=== PATIENT | female | born 1970 | race Hispanic/Latino ===

== ENCOUNTER 2023-04-02 22:14 | Emergency (ER) | payer OTHER ==
--- OUTSIDE RECORDS SUMMARY | 2023-04-02 22:22 | XMS REPORT | Continuity of Care Document ---
:1970 Author Organization [facility] t Address [address] [place] [address] Care Team Providers Name Role Phone BONIFACIO FLOR Attending Clinician Unavailable Donna Barreto Attending Clinician Unavailable GILDA RODRIGUEZ Attending Clinician Unavailable Alverto CANALES, Zelda Genao Attending Clinician [phone] Azar CANALES, Cait Fernandez Attending Clinician Cheko CANALES, Renny Mcwilliams Attending Clinician [phone] Emi Falcon MD Attending Clinician Gilda Rodriguez MD Attending Clinician ZELDA WATT Attending Clinician Unavailable Doctor Unassigned, [place] Attending Clinician Unavailable Alcira Elizalde RN Attending Clinician Unavailable ELIZA RINCON Attending Clinician Unavailable Yousuf Leyva DO Attending Clinician Bonifacio Flor MD Attending Clinician Curtis Anderson DO Attending Clinician Only, Adc Test Attending Clinician Unavailable Pob, [facility] Lab Main Attending Clinician Unavailable Eliza Forbes Attending Clinician Donavan Kumar MD Attending Clinician DONAVAN KUMAR Attending Clinician Unavailable BONIFACIO FLOR Admitting Clinician Unavailable ZELDA WATT Admitting Clinician Unavailable Bonifacio Flor MD Admitting Clinician Payers Payer Name Policy Type Policy Number Effective Date Expiration Date Everardo dalton [facility] [id number] 2012 00:00:00 PLUS [facility] ST[facility] [id number] 2022 00:00:00 PLAN Problems Condition Condition Condition Status Onset Resolution Last Treating Co mments Source Name Details Category Date Date Treatment Clinician Date Perforated Perforated Disease Recurre 2021-[address] [facility] gastric gastric nce 1-11 [facility] ulcer ulcer 00:00: Medical 00 [place] UGIB UGIB Disease Active 2021-[address] [facility] (upper (upper 1-11 [facility] gastrointe gastrointe 00:00: Sd dical stinal stinal 00 Center bleed) bleed) Acute Acute Disease Active 2021-[address] [facility] blood loss blood loss 1-11 [facility] anemia anemia 00:00: Medical 00 [place] Total knee Total knee Disease Active U nivers replacemen replacemen 3-15 it y of [place] status, [place] Primary Primary Disease Active Overview: Univ ers osteoarthr osteoarthr 309 Formatt[place] ity of itis of itis of 00:00: g of this [place] left knee left knee 00 note Medi peggy might be Branch different from the original. 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 Chronic Chronic Disease Active [facility] pain pain [facility] Allergies, Adverse Reactions, Alerts Allergy Allergy Status Severity Reaction(s) Onset Inactive Treating Comm ents Source Name Type Date Date Clinician No Known DA Active U [facility] Drug 01-25 Allergie 00:00: s 00 Tramadol Propensi Active Hives Univer s ty to 3-15 ity of adverse 00:00: [place] reaction 00 Medical s Branch TRAMADOL DRUG Active Low Hives Univers INGREDI 3-15 ity of 00:00: [place] 00 Medical Branch TRAMADOL Allergy Active High Hives [facility] 3-09 [facility] 00:[facility] Medical [facility] Center Tramadol Drug Active Hives [facility] Allergy 3-09 [facility] 00:[facility]: Medical 00 Center Fentanyl Propensi Active Rash Hard to Unive rs ty to 2-22 wake-up ity of adverse 00:00: [place] reaction 00 Medical s to Branch drug Morphine Propensi Active Other - See Pt.state s Univers ty to comments 08-10 that she ity of adverse 00:00: is not [place] reaction 00 allergic Medica l s to to Branch drug morphine but that it is hard to wake her up when she takes it. FENTANYL DRUG Active High Rash Univers INGREDI 08-10 ity of 00:00: [place] 00 Medical Branch MORPHINE DRUG Active High Other-Cmnt Univ ers INGREDI 08-10 ity of 00:00: [place] 00 Medical Branch Propoxyp Propensi Active Rash Univer s hene ty to 09-19 ity of adverse 00:00: [place] reaction 00 Medical s Branch PROPOXYP DRUG Active Rash Univers HENE INGREDI 09-19 ity of 00:00: [place] 00 Medical Branch PROPOXYP Allergy Active Low Rash [facility] 00:[facility]: Medical 00 Center Propoxyp Propensi Active Rash Univer s hene ty to 6 ity of N-Acetam adverse 00:00: [place] inophen reaction 00 Medical s Branch PROPOXYP DRUG Active Rash Univers HENE 6-27 ity of N-ACETAM 00:00: [place] INOPHEN 00 Medical Branch PROPOXYP Allergy Active Low Rash [facility] H[facility] 6-27 [facility] N-ACETAM 00:00: Medical INOPHEN 00 Center NO KNOWN Allergy Active [facility] S Family History Family Member Diagnosis Comments Start Date Stop Date Source Natural brother Alcohol abuse [facility] Natural daughter Depression [facility] Natural daughter Drug abuse [facility] Natural father Diabetes [facility] Natural father Hypertension [facility] Natural mother Cancer [facility] Natural mother Depression [facility] Natural mother Hypertension [facility] Natural sister Cancer [facility] Natural sister Depression [facility] Natural son Alcohol abuse [facility] Natural son Depression [facility] Natural son Drug abuse [facility] Social History Social Habit Start Date Stop Date Quantity Comments Source Exposure to Not sure University of SARS-CoV-2 (event) [place] [facility] History SDOH [facility] Transport Non-Med Medical Center History SDOH 2022-05-05 2022-05-[address] [facility] Transport Med 00:00:00 00:00:[address] History [facility] 2022-05-05 2022-05-[address] [facility] Housing Unable to 00:00:00 00:00:00 Medical Center Pay History [facility] 2022-05-05 2022-05-[address] [facility] Housing Places 00:00:00 00:00:00 Medical Ce nter Lived History [facility] 2022-05-05 2022-05-[address] [facility] Housing Homeless 00:00:00 00:00:00 Medical Center Last Year Cigarettes smoked 2022-04-29 2022-04-[address] [facility] current (pack per 00:00:00 00:00:00 Medical Center day) - Reported Cigarette 2022-04-29 2022-04-[address] [facility] pack-years 00:00:00 00:00:00 [facility] Center Tobacco use and 2022-04-29 2022-04-[address] [facility] exposure 00:00:00 00:00:00 tobacco non-user [facility] Center Alcohol intake 2022-04-29 2022-04-29 Ex-drinker [facility] 00:[facility]:00 00:00:00 (finding) [facility] Tobacco Comment 2022-04-29 2022-04-29 [address] [facility] 00:[facility]00 00:[facility]:00 [facility] Alcohol Comment 2022-04-29 2022-04-[address] [facility] 00:00:00 00:00:00 bypasss surgery. Medical Center History [facility] 2020-08-31 2020-08-31 9 University o f Education 00:00:00 00:00:00 [facility] History of tobacco 1988-04-29 2019-04-[address] use 00:00[facility]00 00:00:00 Medical Center Sex Assigned At [address] [facility] 00:00:00 00:00:00 [facility] Center Smoking Status Start Date Stop Date Source Ex-smoker 2022-04-29 00:00:00 2022-04-29 00:00:[address] [facility] Current every day 2020-09-16 00:00:00 [facility] smoker Medical Branch Medications Ordered Filled Start Stop Current Ordering Indication Dosage Frequency Signature Comments Components Source Medication Medication Date Date Medication? Clinician (SIG) Name Name bisacodyL 2021-06 Yes 5mg Take [address] [facility] (DULCOLAX) 1-18 by mouth 3 Sonu es 5 mg EC 16:03: (three) Medical tablet 01 times Center daily as needed for Constipati on. diphenhydrA 2021-06 Yes 1{tbl} QD Take [address] MINE-acetam -18 tablet by Sonu es inophen 16:03: mouth Medical (TYLENOL 01 nightly. Center PM) 25-500 mg Tab sucralfate 2021-06- No 1g Q.25D Take [address] [facility] (CARAFATE) 18 11-18 tablet (1 Sonu es 1 gram 00:00: 23:59 g total) Medica l tablet 00 :00 by mouth 4 Center (four) times daily. pantoprazol 2021-06 No 40mg Q.5D Take [address] [facility] e 18 12-18 tablet (40 [facility] (PROTONIX) 00:00: 23:59 mg total) M edical 40 MG 00 :00 by mouth 2 Center tablet (two) times daily for 30 days. oxyCODONE-a 2021-06- No 1{tbl} Take [address] cetaminophe 07-06-28 tablet by Shara walters 00:00: 23:59 mouth Medical (PERCOCET) 00 :00 every 4 Center 10-325 mg (four) per tablet hours as needed for Pain for up to 10 days. Max Daily Amount: 6 tablets HYDROcodone 2021-06 No 1{tbl} Take [address] -acetaminop 06-20-18 tablet by Shara robertson hen (NORCO 00:00: 00:00 mouth Medic al 10-325) 00 :00 every 6 Center 10-325 mg (six) per tablet hours as needed. varenicline Yes Take by Uni vers tartrate 3-16 mouth. ity of (CHANTIX 21:27: [place] ORAL) 10 Medical Branch varenicline Yes Take by Uni vers tartrate 3-16 mouth. ity of (CHANTIX 21:27: [place] ORAL) 10 Medical Branch varenicline Yes Take by Uni vers tartrate 3-16 mouth. ity of (CHANTIX 21:27: [place] ORAL) 10 Medical Branch varenicline Yes Take by Uni vers tartrate 3-16 mouth. ity of (CHANTIX 21:27: [place] ORAL) 10 Medical Branch varenicline Yes Take by Uni vers tartrate 3-16 mouth. ity of (CHANTIX 21:27: [place] ORAL) 10 Medical Branch varenicline Yes Take by Uni vers tartrate 3-16 mouth. ity of (CHANTIX 21:27: [place] ORAL) 10 Medical Branch varenicline Yes Take by Uni vers tartrate 3-16 mouth. ity of (CHANTIX 21:27: [place] ORAL) 10 Medical Branch varenicline Yes Take by Uni vers tartrate 3-16 mouth. ity of (CHANTIX 21:27: [place] ORAL) 10 Medical Branch varenicline Yes Take by Uni vers tartrate 3-16 mouth. ity of (CHANTIX 21:27: [place] ORAL) 10 Medical Branch varenicline Yes Take by Uni vers tartrate 3-16 mouth. ity of (CHANTIX 21:27: [place] ORAL) 10 Medical Branch varenicline Yes Take by Uni vers tartrate 3-16 mouth. ity of (CHANTIX 21:27: [place] ORAL) 10 Medical Branch varenicline Yes Take by Uni vers tartrate 3-16 mouth. ity of (CHANTIX 21:27: [place] ORAL) 10 Medical Branch varenicline Yes Take by Uni vers tartrate 3-16 mouth. ity of (CHANTIX 21:27: [place] ORAL) 10 Medical Branch varenicline Yes Take by Uni vers tartrate 3-16 mouth. ity of (CHANTIX 21:27: [place] ORAL) 10 Medical Branch varenicline Yes Take by Uni vers tartrate 3-16 mouth. ity of (CHANTIX 21:27: [place] ORAL) 10 Medical Branch enoxaparin 2020- No 30mg 30 mg, Univ ers (LOVENOX) 3-16 04-13 Subcutaneo ity of injection 10:00: 00:59 [place], Q12H, [place] 30 mg 00 :00 56 doses, Medical First dose Branch on Mon09/01/20 at 0500, Last dose on Mon09/28/20 at 0800, Routine docusate Yes 100mg 100 mg, Unive rs (COLACE) 3-16 Oral, ity of capsule 100 01:00: Q12H, [place] mg 00 First dose Medical on Mon Branch 08/31/20 at 2000, Until Discontinu ed, Routine rivaroxaban 2020- No 1481 10mg Take 1 Uni vers (XARELTO) -01 09- tablet by ity of tablet 00:00: 04:59 mouth [place] 00 :00 daily for Medical 10 days. Branch Indication s: deep vein thrombosis prevention in knee replacemen t rivaroxaban 2020- No 1481 10mg Take 1 Uni vers (XARELTO) -01 09- tablet by ity of tablet 00:00: 04:59 mouth [place] 00 :00 daily for Medical 10 days. Branch Indication s: deep vein thrombosis prevention in knee replacemen t rivaroxaban 2020- No 1481 10mg Take 1 Uni vers (XARELTO) -01 09- tablet by ity of tablet 00:00: 04:59 mouth [place] 00 :00 daily for Medical 10 days. Branch Indication s: deep vein thrombosis prevention in knee replacemen t rivaroxaban 1- No 1481 10mg Take 1 Uni vers (XARELTO) -16 - tablet by ity of tablet 00:00: 04:59 mouth [place] 00 :00 daily for Medical 10 days. Branch Indication s: deep vein thrombosis prevention in knee replacemen t rivaroxaban 2020- No 1481 10mg Take 1 Uni vers (XARELTO) -16 -27 tablet by ity of tablet 00:00: 04:59 mouth [place] 00 :00 daily for Medical 10 days. Branch Indication s: deep vein thrombosis prevention in knee replacemen t rivaroxaban 2020- No 1481 10mg Take 1 Uni vers (XARELTO) -16 -27 tablet by ity of tablet 00:00: 04:59 mouth [place] 00 :00 daily for Medical 10 days. Branch Indication s: deep vein thrombosis prevention in knee replacemen t HYDROcodone 2020- No 4647 1{tbl} Take 1 U nivers -acetaminop 3-16 03-24 tablet by it y of hen 10-325 00:00: 04:59 mouth [place] mg tablet 00 :00 every 6 Medical (six) Branch hours as needed for Pain (scale 7-10) for up to 7 days. Indication s: acute pain HYDROcodone 2020- No 4647 1{tbl} Take 1 U nivers -acetaminop 3-16 03-24 tablet by it y of hen 10-325 00:00: 04:59 mouth [place] mg tablet 00 :00 every 6 Medical (six) Branch hours as needed for Pain (scale 7-10) for up to 7 days. Indication s: acute pain HYDROcodone 2020- No 4647 1{tbl} Take 1 U nivers -acetaminop 3-16 03-24 tablet by it y of hen 10-325 00:00: 04:59 mouth [place] mg tablet 00 :00 every 6 Medical (six) Branch hours as needed for Pain (scale 7-10) for up to 7 days. Indication s: acute pain HYDROcodone 2020- No 4647 1{tbl} Take 1 U nivers -acetaminop 3-16 03-24 tablet by it y of hen 10-325 00:00: 04:59 mouth [place] mg tablet 00 :00 every 6 Medical (six) Branch hours as needed for Pain (scale 7-10) for up to 7 days. Indication s: acute pain pantoprazol Yes 40mg 40 mg, Univ ers e 3-15 Oral, ity of (PROTONIX) 22:30: DAILY, [place] EC tablet 00 First dose Medi peggy 40 mg on Mon Branch 08/31/20 at 1730, Until Discontinu ed, Routine HYDROcodone Yes 1{tbl} 1 tablet, Univers -acetaminop 3-15 Oral, ity of hen (NORCO) 22:18: Q6HPRN, [place] 10-325 mg 40 Starting Medica l tablet 1 Mon Branch tablet 08/31/20 at 1718, Until Discontinu ed, Routine, Pain (scale 7-10) nicotine Yes 1{patch 1 Patch, Un héctor (NICODERM) 3-15 } Topical, ity o f 14 mg/24 hr 22:15: Administer [place] patch 1 00 over 24 Medical Patch Hours, Branch Q24H, First dose on Mon08/31/20 at 1715, Until Discontinu ed, Routine HYDROcodone 2020- No 1{tbl} 1 tablet, Univers -acetaminop 08-31 03-15 Oral, ity of hen (NORCO 20:35: 22:19 Q6HPRN, [place] 5) 5-325 mg 08 :07 Starting Medi peggy tablet 1 Mon [place] tablet 08/31/20 at 1535, Until Mon08/31/20 at 1719, Routine, Pain (scale 4-6), breakthrou gh pain morpHINE 30 Yes Univer s mg/30 mL 3-15 ity of (fixed 14:15: [place] dose) SPEECH 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 PATH THERAPIST 25 Medical injection Branch DULoxetine Yes 30mg 30 mg, Unive rs (CYMBALTA) 3-15 Oral, ity of capsule 30 14:00: DAILY, [place] mg 00 First dose Medical on [facility] 08/31/20 at 0900, Until Discontinu ed, Routine naloxone Yes .2mg 0.2 mg, Univer s (NARCAN) 3-15 Slow IV ity of injection 13:15: Push, [place] 0.2 mg 07 SEE-INSTRU Medical CTIONS, Branch Starting [facility] 08/31/20 at 0815, Until Discontinu ed, Routine ondansetron Yes 4mg 4 mg, Slow Univers (ZOFRAN 3-15 IV Push, ity of (PF)) 13:14: Q6HPRN, [place] injection 4 47 Starting Medi peggy mg [facility] 08/31/20 at 0814, Until Discontinu ed, Routine, Nausea and Vomiting (N/V) oxyCODONE-a 2020- No 2{tbl} 2 tablet, Univers cetaminophe 315 03-15 Oral, ity of n 12:30: 12:25 ONCE, 1 [place] (PERCOCET) 00 :00 dose, [facility] Medi peggy 5-325 mg 08/31/20 at Branc h per tablet 0730, 2 tablet Routine, DSU Pre-op gabapentin 2020- No 300mg 300 mg, Un héctor (NEURONTIN) 08-31 Oral, ity of capsule 300 12:30: 12:25 ONCE, 1 [place] mg 00 :00 dose, Mon Medical 08/31/20 at Branch 0730, Routine, DSU Pre-op celecoxib 2020- No 400mg 400 mg, Uni vers (CELEBREX) 08-31 Oral, ity of capsule 400 12:30: 12:24 ONCE, 1 [place] mg 00 :00 dose, Mon Medical 08/31/20 at Branch 0730, Routine, DSU Pre-op lactated 2020- No 1000mL at [facility] ringers IV 08-31 mL/hr, ity of infusion 12:30: 12:40 1,000 mL, [place] 1,000 mL 00 :00 IV Medical Infusion, [place] ONCE, 1 dose, [facility] 08/31/20 at [facility], Routine, DSU Pre-op varenicline Yes Take by Uni vers tartrate 2-03 mouth. ity of (CHANTIX 19:26: [place] ORAL) 54 [facility] Branch varenicline Yes Take by Uni vers tartrate 2-03 mouth. ity of (CHANTIX 19:26: [place] ORAL) 54 [facility] Branch varenicline Yes Take by Uni vers tartrate 2-03 mouth. ity of (CHANTIX 19:26: [place] ORAL) 54 [facility] Branch varenicline Yes Take by Uni vers tartrate 2-03 mouth. ity of (CHANTIX 19:26: [place] ORAL) 54 [facility] Branch varenicline Yes Take by Uni vers tartrate 2-03 mouth. ity of (CHANTIX 19:26: [place] ORAL) 54 [facility] Branch varenicline Yes Take by Uni vers tartrate 2-03 mouth. ity of (CHANTIX 19:26: [place] ORAL) 54 [facility] Branch varenicline Yes Take by Uni vers tartrate 2-03 mouth. ity of (CHANTIX 19:26: [place] ORAL) 54 [facility] Branch varenicline Yes Take by Uni vers tartrate 2-03 mouth. ity of (CHANTIX 19:26: [place] ORAL) 54 Medical Branch varenicline Yes Take by Uni vers tartrate 2-03 mouth. ity of (CHANTIX 19:26: [place] ORAL) 54 Medical Branch varenicline Yes Take by Uni vers tartrate 2-03 mouth. ity of (CHANTIX 19:26: [place] ORAL) 54 Medical Branch varenicline Yes Take by Uni vers tartrate 2-03 mouth. ity of (CHANTIX 19:26: [place] ORAL) 54 Medical Branch varenicline Yes Take by Uni vers tartrate 2-03 mouth. ity of (CHANTIX 19:26: [place] ORAL) 54 Medical Branch varenicline Yes Take by Uni vers tartrate 2-03 mouth. ity of (CHANTIX 19:26: [place] ORAL) 54 Medical Branch varenicline Yes Take by Uni vers tartrate 2-03 mouth. ity of (CHANTIX 19:26: [place] ORAL) 54 Medical Branch varenicline Yes Take by Uni vers tartrate 2-03 mouth. ity of (CHANTIX 19:26: [place] ORAL) 54 Medical Branch varenicline Yes Take by Uni vers tartrate 2-03 mouth. ity of (CHANTIX 19:26: [place] ORAL) 54 Medical Branch varenicline Yes Take by Uni vers tartrate 2-03 mouth. ity of (CHANTIX 19:26: [place] ORAL) 54 Medical Branch varenicline Yes Take by Uni vers tartrate 2-03 mouth. ity of (CHANTIX 19:26: [place] ORAL) 54 Medical Branch varenicline Yes Take by Uni vers tartrate 2-03 mouth. ity of (CHANTIX 19:26: [place] ORAL) 54 Medical Branch varenicline Yes Take by Uni vers tartrate 2-03 mouth. ity of (CHANTIX 19:26: [place] ORAL) 54 Medical Branch DULoxetine 0 Yes Univers 30 mg 4-07 ity of capsule 00:00: [place] 00 Medical Branch DULoxetine 0 Yes Univers 30 mg 4-07 ity of capsule 00:00: [place] 00 Medical Branch DULoxetine 2020-0 Yes Univers 30 mg 4-07 ity of capsule 00:00: [place] [address] Medical Branch DULoxetine 2020-0 Yes Univers 30 mg 4-07 ity of capsule 00:00: [place] [address] Medical Branch DULoxetine 2020-0 Yes Univers 30 mg 4-07 ity of capsule 00:00: [place] [address] Medical Branch DULoxetine 2020-0 Yes Univers 30 mg 4-07 ity of capsule 00:00: [place] [address] Medical Branch DULoxetine 2020-0 Yes Univers 30 mg 4-07 ity of capsule 00:00: [place] [address] Medical Branch DULoxetine 2020-0 Yes Univers 30 mg 4-07 ity of capsule 00:00: [place] [address] Medical Branch DULoxetine 2020-0 Yes Univers 30 mg 4-07 ity of capsule 00:00: [place] [address] Medical Branch DULoxetine 2020-0 Yes Univers 30 mg 4-07 ity of capsule 00:00: [place] [address] Medical Branch DULoxetine 2020-0 Yes Univers 30 mg 4-07 ity of capsule 00:00: [place] [address] Medical Branch DULoxetine 2020-0 Yes Univers 30 mg 4-07 ity of capsule 00:00: [place] [address] Medical Branch DULoxetine 2020-0 Yes Univers 30 mg 4-07 ity of capsule 00:00: [place] [address] Medical Branch DULoxetine 2020-0 Yes Univers 30 mg 4-07 ity of capsule 00:00: [place] [address] Medical Branch DULoxetine 2020-0 Yes Univers 30 mg 4-07 ity of capsule 00:00: [place] [address] Medical Branch DULoxetine 2020-0 Yes Univers 30 mg 4-07 ity of capsule 00:00: [place] [address] Medical Branch DULoxetine 2020-0 Yes Univers 30 mg 4-07 ity of capsule 00:00: [place] [address] Medical Branch DULoxetine 2020-0 Yes Univers 30 mg 4-07 ity of capsule 00:00: [place] [address] Medical Branch DULoxetine 2020-0 Yes Univers 30 mg 4-07 ity of capsule 00:00: [place] [address] Medical Branch DULoxetine 2020-0 Yes Univers 30 mg 4-07 ity of capsule 00:00: [place] [address] Medical Branch DULoxetine 2020-0 Yes Univers 30 mg 4-07 ity of capsule 00:00: [place] [address] Medical Branch DULoxetine 2020-0 Yes Univers 30 mg 4-07 ity of capsule 00:00: [place] [address] Medical Branch DULoxetine 2020-0 Yes Univers 30 mg 4-07 ity of capsule 00:00: [place] [address] Medical Branch DULoxetine 2020-0 Yes Univers 30 mg 4-07 ity of capsule 00:00: [place] [address] Medical Branch DULoxetine 2020-0 Yes Univers 30 mg 4-07 ity of capsule 00:00: [place] [address] Medical Branch DULoxetine 2020-0 Yes Univers 30 mg 4-07 ity of capsule 00:00: [place] [address] Medical Branch DULoxetine 2020-0 Yes Univers 30 mg 4-07 ity of capsule 00:00: [place] [address] Medical Branch DULoxetine 2020-0 Yes Univers 30 mg 4-07 ity of capsule 00:00: [place] [address] Medical Branch DULoxetine 2020-0 Yes Univers 30 mg 4-07 ity of capsule 00:00: [place] [address] Medical Branch DULoxetine 2020-0 Yes Univers 30 mg 4-07 ity of capsule 00:00: [place] [address] Medical Branch DULoxetine 2020-0 Yes Univers 30 mg 4-07 ity of capsule 00:00: [place] [address] Medical Branch DULoxetine 2020-0 Yes Univers 30 mg 4-07 ity of capsule 00:00: [place] [address] Medical Branch DULoxetine 2020-0 Yes Univers 30 mg 4-07 ity of capsule 00:00: [place] [address] Medical Branch famotidine 2020-0 Yes 20mg 20 mg. Unive rs 40 mg/5 mL 3-11 ity of (8 mg/mL) 00:00: [facility] Medical Branch famotidine 2020-0 Yes 20mg 20 mg. Unive rs 40 mg/5 mL 3-11 ity of (8 mg/mL) 00:00: [facility] Medical Branch famotidine 2020-0 Yes 20mg 20 mg. Unive rs 40 mg/5 mL 3-11 ity of (8 mg/mL) 00:00: [facility] Medical Branch famotidine 2020-0 Yes 20mg 20 mg. Unive rs 40 mg/5 mL 3-11 ity of (8 mg/mL) 00:00: [facility] Medical Branch famotidine 2020-0 Yes 20mg 20 mg. Unive rs 40 mg/5 mL 3-11 ity of (8 mg/mL) 00:00: [facility] Medical Branch famotidine 2020-0 Yes 20mg 20 mg. Unive rs 40 mg/5 mL 3-11 ity of (8 mg/mL) 00:00: [facility] Medical Branch famotidine 2020-0 Yes 20mg 20 mg. Unive rs 40 mg/5 mL 3-11 ity of (8 mg/mL) 00:00: [place] suspension 00 Medical Branch famotidine 2020-0 Yes 20mg 20 mg. Unive rs 40 mg/5 mL 3-11 ity of (8 mg/mL) 00:00: [place] suspension 00 Medical Branch famotidine 2020-0 Yes 20mg 20 mg. Unive rs 40 mg/5 mL 3-11 ity of (8 mg/mL) 00:00: [place] suspension Medical Branch famotidine 2020-0 Yes 20mg 20 mg. Unive rs 40 mg/5 mL 3-11 ity of (8 mg/mL) 00:00: [place] suspension Medical Branch famotidine 2020-0 Yes 20mg 20 mg. Unive rs 40 mg/5 mL 3-11 ity of (8 mg/mL) 00:00: [place] suspension Medical Branch famotidine 2020-0 Yes 20mg 20 mg. Unive rs 40 mg/5 mL 3-11 ity of (8 mg/mL) 00:00: [place] suspension Medical Branch famotidine 2020-0 Yes 20mg 20 mg. Unive rs 40 mg/5 mL 3-11 ity of (8 mg/mL) 00:00: [place] suspension [facility] famotidine 2020-0 Yes 20mg 20 mg. Unive rs 40 mg/5 mL 3-11 ity of (8 mg/mL) 00:00: [place] [facility] famotidine 2020-0 Yes 20mg 20 mg. Unive rs 40 mg/5 mL 3-11 ity of (8 mg/mL) 00:00: [place] [facility] famotidine 2020-0 Yes 20mg 20 mg. Unive rs 40 mg/5 mL 3-11 ity of (8 mg/mL) 00:00: [place] [facility] famotidine 2020-0 Yes 20mg 20 mg. Unive rs 40 mg/5 mL 3-11 ity of (8 mg/mL) 00:00: [place] suspension [facility] famotidine 2020-0 Yes 20mg 20 mg. Unive rs 40 mg/5 mL 3-11 ity of (8 mg/mL) 00:00: [place] [facility] famotidine 2020-0 Yes 20mg 20 mg. Unive rs 40 mg/5 mL 3-11 ity of (8 mg/mL) 00:00: [place] [facility] famotidine 2020-0 Yes 20mg 20 mg. Unive rs 40 mg/5 mL 3-11 ity of (8 mg/mL) 00:00: [place] [facility] famotidine 2020-0 Yes 20mg 20 mg. Unive rs 40 mg/5 mL 3-11 ity of (8 mg/mL) 00:00: [place] [facility] famotidine 2020-0 Yes 20mg 20 mg. Unive rs 40 mg/5 mL 3-11 ity of (8 mg/mL) 00:00: [place] [facility] famotidine 2020-0 Yes 20mg 20 mg. Unive rs 40 mg/5 mL 3-11 ity of (8 mg/mL) 00:00: [place] suspension [facility] famotidine 2020-0 Yes 20mg 20 mg. Unive rs 40 mg/5 mL 3-11 ity of (8 mg/mL) 00:00: [place] [facility] famotidine 2020-0 Yes 20mg 20 mg. Unive rs 40 mg/5 mL 3-11 ity of (8 mg/mL) 00:00: [place] suspension [facility] famotidine 2020-0 Yes 20mg 20 mg. Unive rs 40 mg/5 mL 3-11 ity of (8 mg/mL) 00:00: [place] [facility] famotidine 2020-0 Yes 20mg 20 mg. Unive rs 40 mg/5 mL 3-11 ity of (8 mg/mL) 00:00: [place] [facility] famotidine 2020-0 Yes 20mg 20 mg. Unive rs 40 mg/5 mL 3-11 ity of (8 mg/mL) 00:00: [place] [facility] famotidine 2020-0 Yes 20mg 20 mg. Unive rs 40 mg/5 mL 3-11 ity of (8 mg/mL) 00:00: [place] [facility] famotidine 2020-0 Yes 20mg 20 mg. Unive rs 40 mg/5 mL 3-11 ity of (8 mg/mL) 00:00: [place] [facility] famotidine 2020-0 Yes 20mg 20 mg. Unive rs 40 mg/5 mL 3-11 ity of (8 mg/mL) 00:00: [place] suspension 00 [facility] famotidine 2019-0 Yes 20mg 20 mg. Unive rs 40 mg/5 mL 3-11 ity of (8 mg/mL) 00:00: [place] suspension 00 [facility] famotidine 2019-0 Yes 20mg 20 mg. Unive rs 40 mg/5 mL 3-11 ity of (8 mg/mL) 00:00: [place] suspension 00 [facility] diclofenac Yes [id number] 75mg Take 1 Univers 75 mg EC 8-02 9102 tablet by ity of tablet 00:00: mouth 2 00 (two) Medical times Branch daily with meals. diclofenac Yes [id number] 75mg Take 1 [facility] 75 mg EC 8-02 9102 tablet by ity of tablet 00:00: mouth 2 00 (two) Medical times Branch daily with meals. diclofenac Yes [id number] 75mg Take 1 [facility] 75 mg EC 8-02 9102 tablet by ity of tablet 00:00: mouth 2 00 (two) Medical times Branch daily with meals. diclofenac Yes [id number] 75mg Take 1 [facility] 75 mg EC 8-02 9102 tablet by ity of tablet 00:00: mouth 2 (two) Medical times Branch daily with meals. diclofenac 2020- No [id number] 75mg Take 1 [facility] 75 mg EC 8-02 02-12 9102 tablet by ity o f tablet 00:00: 00:00 mouth 2 [place] 00 :00 (two) Medical times Branch daily with meals. diclofenac 2020- No [id number] 75mg Take 1 Univers 75 mg EC 8-02 02-12 9102 tablet by ity o f tablet 00:00: 00:00 mouth 2 [place] 00 :00 (two) Medical times Branch daily with meals. diclofenac 2020- No [id number] 75mg Take 1 Univers 75 mg EC 8-02 02-12 9102 tablet by ity o f tablet 00:00: 00:00 mouth 2 [place] 00 :00 (two) Medical times Branch daily with meals. varenicline Yes Take by Uni vers tartrate 5-29 mouth. ity of (CHANTIX 19:13: [place] ORAL) 25 Medical Branch varenicline Yes Take by Uni vers tartrate - mouth. ity of (CHANTIX 19:13: [place] ORAL) 25 Medical Branch diclofenac Yes [id number] 75mg Take 1 [facility] 75 mg EC 5-29 9102 tablet by ity of tablet 00:00: mouth 2 [place] 00 (two) Medical times Branch daily with meals. diclofenac Yes [id number] 75mg Take 1 [facility] 75 mg EC 5-29 9102 tablet by ity of tablet 00:00: mouth 2 [place] 00 (two) Medical times Branch daily with meals. diclofenac Yes [id number] 75mg Take 1 [facility] 75 mg EC 5-29 9102 tablet by ity of tablet 00:00: mouth 2 [place] 00 (two) Medical times Branch daily with meals. diclofenac Yes [id number] 75mg Take 1 [facility] 75 mg EC 5-29 9102 tablet by ity of tablet 00:00: mouth 2 [place] 00 (two) Medical times Branch daily with meals. diclofenac 2020- No [id number] 75mg Take 1 Univers 75 mg EC 5-29 - 9102 tablet by ity o f tablet 00:00: 00:00 mouth 2 [place] 00 :00 (two) Medical times Branch daily with meals. diclofenac 2020- No [id number] 75mg Take 1 Univers 75 mg EC 5-29 - 9102 tablet by ity o f tablet 00:00: 00:00 mouth 2 [place] 00 :00 (two) Medical times Branch daily with meals. diclofenac 2020- No [id number] 75mg Take 1 Univers 75 mg EC 5-29 - 9102 tablet by ity o f tablet 00:00: 00:00 mouth 2 [place] 00 :00 (two) Medical times Branch daily with meals. diclofenac 2019- No [id number] 75mg Take 1 Univers 75 mg EC 5-29 - 9102 tablet by ity o f tablet 00:00: 00:00 mouth 2 [place] 00 :00 (two) Medical times Branch daily with meals. HYDROcodone 2012-06 Yes 1{tbl} Take 1 Tab Univers -acetaminop 1-18 by mouth ity of hen (NORCO) 00:00: every 6 [place] 10-325 mg 00 (six) Medical tablet hours as Branch needed for Pain (scale 4-6). HYDROcodone 2012-06 Yes 1{tbl} Take 1 Tab Univers -acetaminop 1-18 by mouth ity of hen (NORCO) 00:00: every 6 [place] 10-325 mg 00 (six) Medical tablet hours as Branch needed for Pain (scale 4-6). HYDROcodone 2012-06 Yes 1{tbl} Take 1 Tab Univers -acetaminop 1-18 by mouth ity of hen (NORCO) 00:00: every 6 [place] 10-325 mg 00 (six) Medical tablet hours as Branch needed for Pain (scale 4-6). HYDROcodone 2012-06 Yes 1{tbl} Take 1 Tab Univers -acetaminop 1-18 by mouth ity of hen (NORCO) 00:00: every 6 [place] 10-325 mg 00 (six) Medical tablet hours as Branch needed for Pain (scale 4-6). HYDROcodone 2012-06- No 1{tbl} Take 1 Tab Univers -acetaminop 1-18 02-12 by mouth ity of hen (NORCO) 00:00: 00:00 every 6 [place] 10-325 mg 00 :00 (six) Medical tablet hours as Branch needed for Pain (scale 4-6). HYDROcodone 2012-06- No 1{tbl} Take 1 Tab Univers -acetaminop 1-18 02-12 by mouth ity of hen (NORCO) 00:00: 00:00 every 6 [place] 10-325 mg 00 :00 (six) Medical tablet hours as Branch needed for Pain (scale 4-6). HYDROcodone 2012-06- No 1{tbl} Take 1 Tab Univers -acetaminop 1-18 02-12 by mouth ity of hen (NORCO) 00:00: 00:00 every 6 [place] 10-325 mg 00 :00 (six) Medical tablet hours as Branch needed for Pain (scale 4-6). docusate Yes 100mg Take 1 Cap Un héctor (COLACE) 8-27 by mouth ity of 100 mg 00:00: daily. [place] capsule 00 Medical Branch HYDROcodone Yes 1{tbl} Take 1 Tab Univers -acetaminop 8-27 by mouth ity of hen (NORCO) 00:00: every 4 [place] 10-325 mg 00 (four) Medical tablet hours as Branch needed for Pain (scale 4-6), Pain (scale 7-10) or Pain unrelieved by non-narcot ic analgesics (prn pain). methocarbam 2012-0 Yes 500mg Take 1 Tab Univers ol 8-27 by mouth 4 ity of (ROBAXIN) 00:00: (four) [place] 500 mg 00 times Medical tablet daily as Branch needed (back pain/spasm s). traMADOL 2012-0 Yes 50mg Take 1 Tab Uni vers (ULTRAM) 50 8-27 by mouth ity of mg tablet 00:00: every 6 [place] 00 (six) Medical hours as Branch needed for Pain. docusate 2012-0 Yes 100mg Take 1 Cap Un héctor (COLACE) 8-27 by mouth ity of 100 mg 00:00: daily. [place] capsule 00 Medical Branch HYDROcodone 0 Yes 1{tbl} Take 1 Tab Univers -acetaminop 8-27 by mouth ity of hen (NORCO) 00:00: every 4 [place] 10-325 mg 00 (four) Medical tablet hours as Branch needed for Pain (scale 4-6), Pain (scale 7-10) or Pain unrelieved by non-narcot ic analgesics (prn pain). methocarbam 2012-0 Yes 500mg Take 1 Tab Univers ol 8-27 by mouth 4 ity of (ROBAXIN) 00:00: (four) [place] 500 mg 00 times Medical tablet daily as Branch needed (back pain/spasm s). traMADOL 2012-0 Yes 50mg Take 1 Tab Uni vers (ULTRAM) 50 8-27 by mouth ity of mg tablet 00:00: every 6 [place] 00 (six) Medical hours as Branch needed for Pain. docusate 2013-0 Yes 100mg Take 1 Cap Un héctor (COLACE) 8-27 by mouth ity of 100 mg 00:00: daily. [place] capsule 00 Medical Branch HYDROcodone 2012-0 Yes 1{tbl} Take 1 Tab Univers -acetaminop 8-27 by mouth ity of hen (NORCO) 00:00: every 4 [place] 10-325 mg 00 (four) Medical tablet hours as Branch needed for Pain (scale 4-6), Pain (scale 7-10) or Pain unrelieved by non-narcot ic analgesics (prn pain). methocarbam 2013-0 Yes 500mg Take 1 Tab Univers ol 8-27 by mouth 4 ity of (ROBAXIN) 00:00: (four) [place] 500 mg 00 times Medical tablet daily as Branch needed (back pain/spasm s). traMADOL 2013-0 Yes 50mg Take 1 Tab Uni vers (ULTRAM) 50 8-27 by mouth ity of mg tablet 00:00: every 6 [place] 00 (six) Medical hours as Branch needed for Pain. docusate 2013-0 Yes 100mg Take 1 Cap Un héctor (COLACE) 8-27 by mouth ity of 100 mg 00:00: daily. [place] capsule 00 Medical Branch HYDROcodone 0 Yes 1{tbl} Take 1 Tab Univers -acetaminop 8-27 by mouth ity of hen (NORCO) 00:00: every 4 [place] 10-325 mg 00 (four) Medical tablet hours as Branch needed for Pain (scale 4-6), Pain (scale 7-10) or Pain unrelieved by non-narcot ic analgesics (prn pain). methocarbam 2012-0 Yes 500mg Take 1 Tab Univers ol 8-27 by mouth 4 ity of (ROBAXIN) 00:00: (four) [place] 500 mg 00 times Medical tablet daily as Branch needed (back pain/spasm s). traMADOL 2012-0 Yes 50mg Take 1 Tab Uni vers (ULTRAM) 50 8-27 by mouth ity of mg tablet 00:00: every 6 [place] 00 (six) Medical hours as Branch needed for Pain. HYDROcodone 2012-0 Yes 1{tbl} Take 1 Tab Univers -acetaminop 8-27 by mouth ity of hen (NORCO) 00:00: every 4 [place] 10-325 mg 00 (four) Medical tablet hours as Branch needed for Pain (scale 4-6), Pain (scale 7-10) or Pain unrelieved by non-narcot ic analgesics (prn pain). HYDROcodone 2013-0 Yes 1{tbl} Take 1 Tab Univers -acetaminop 8-27 by mouth ity of hen (NORCO) 00:00: every 4 [place] 10-325 mg 00 (four) Medical tablet hours as Branch needed for Pain (scale 4-6), Pain (scale 7-10) or Pain unrelieved by non-narcot ic analgesics (prn pain). HYDROcodone Yes 1{tbl} Take 1 Tab Univers -acetaminop 8-27 by mouth ity of hen (NORCO) 00:00: every 4 [place] 10-325 mg 00 (four) Medical tablet hours as Branch needed for Pain (scale 4-6), Pain (scale 7-10) or Pain unrelieved by non-narcot ic analgesics (prn pain). HYDROcodone Yes 1{tbl} Take 1 Tab Univers -acetaminop 8-27 by mouth ity of hen (NORCO) 00:00: every 4 [place] 10-325 mg 00 (four) Medical tablet hours as Branch needed for Pain (scale 4-6), Pain (scale 7-10) or Pain unrelieved by non-narcot ic analgesics (prn pain). HYDROcodone Yes 1{tbl} Take 1 Tab Univers -acetaminop 8-27 by mouth ity of hen (NORCO) 00:00: every 4 [place] 10-325 mg 00 (four) Medical tablet hours as Branch needed for Pain (scale 4-6), Pain (scale 7-10) or Pain unrelieved by non-narcot ic analgesics (prn pain). HYDROcodone Yes 1{tbl} Take 1 Tab Univers -acetaminop 8-27 by mouth ity of hen (NORCO) 00:00: every 4 [place] 10-325 mg 00 (four) Medical tablet hours as Branch needed for Pain (scale 4-6), Pain (scale 7-10) or Pain unrelieved by non-narcot ic analgesics (prn pain). HYDROcodone Yes 1{tbl} Take 1 Tab Univers -acetaminop 8-27 by mouth ity of hen (NORCO) 00:00: every 4 [place] 10-325 mg 00 (four) Medical tablet hours as Branch needed for Pain (scale 4-6), Pain (scale 7-10) or Pain unrelieved by non-narcot ic analgesics (prn pain). HYDROcodone Yes 1{tbl} Take 1 Tab Univers -acetaminop 8-27 by mouth ity of hen (NORCO) 00:00: every 4 [place] 10-325 mg 00 (four) Medical tablet hours as Branch needed for Pain (scale 4-6), Pain (scale 7-10) or Pain unrelieved by non-narcot ic analgesics (prn pain). HYDROcodone Yes 1{tbl} Take 1 Tab Univers -acetaminop 8-27 by mouth ity of hen (NORCO) 00:00: every 4 [place] 10-325 mg 00 (four) Medical tablet hours as Branch needed for Pain (scale 4-6), Pain (scale 7-10) or Pain unrelieved by non-narcot ic analgesics (prn pain). HYDROcodone Yes 1{tbl} Take 1 Tab Univers -acetaminop 8-27 by mouth ity of hen (NORCO) 00:00: every 4 [place] 10-325 mg 00 (four) Medical tablet hours as Branch needed for Pain (scale 4-6), Pain (scale 7-10) or Pain unrelieved by non-narcot ic analgesics (prn pain). HYDROcodone Yes 1{tbl} Take 1 Tab [facility] -acetaminop 8-27 by mouth ity of hen (NORCO) 00:00: every 4 [place] 10-325 mg 00 (four) Medical tablet hours as Branch needed for Pain (scale 4-6), Pain (scale 7-10) or Pain unrelieved by non-narcot ic analgesics (prn pain). HYDROcodone Yes 1{tbl} Take 1 Tab [facility] -acetaminop 8-27 by mouth ity of hen (NORCO) 00:00: every 4 [place] 10-325 mg 00 (four) Medical tablet hours as Branch needed for Pain (scale 4-6), Pain (scale 7-10) or Pain unrelieved by non-narcot ic analgesics (prn pain). HYDROcodone Yes 1{tbl} Take 1 Tab [facility] -acetaminop 8-27 by mouth ity of hen (NORCO) 00:00: every 4 [place] 10-325 mg 00 (four) Medical tablet hours as Branch needed for Pain (scale 4-6), Pain (scale 7-10) or Pain unrelieved by non-narcot ic analgesics (prn pain). HYDROcodone Yes 1{tbl} Take 1 Tab Univers -acetaminop 8-27 by mouth ity of hen (NORCO) 00:00: every 4 [place] 10-325 mg 00 (four) Medical tablet hours as Branch needed for Pain (scale 4-6), Pain (scale 7-10) or Pain unrelieved by non-narcot ic analgesics (prn pain). HYDROcodone Yes 1{tbl} Take 1 Tab [facility] -acetaminop 8-27 by mouth ity of hen (NORCO) 00:00: every 4 [place] 10-325 mg 00 (four) Medical tablet hours as Branch needed for Pain (scale 4-6), Pain (scale 7-10) or Pain unrelieved by non-narcot ic analgesics (prn pain). HYDROcodone Yes 1{tbl} Take 1 Tab Univers -acetaminop 8-27 by mouth ity of hen (NORCO) 00:00: every 4 [place] 10-325 mg 00 (four) Medical tablet hours as Branch needed for Pain (scale 4-6), Pain (scale 7-10) or Pain unrelieved by non-narcot ic analgesics (prn pain). HYDROcodone Yes 1{tbl} Take 1 Tab Univers -acetaminop 8-27 by mouth ity of hen (NORCO) 00:00: every 4 [place] 10-325 mg 00 (four) Medical tablet hours as Branch needed for Pain (scale 4-6), Pain (scale 7-10) or Pain unrelieved by non-narcot ic analgesics (prn pain). HYDROcodone Yes 1{tbl} Take 1 Tab Univers -acetaminop 8-27 by mouth ity of hen (NORCO) 00:00: every 4 [place] 10-325 mg 00 (four) Medical tablet hours as Branch needed for Pain (scale 4-6), Pain (scale 7-10) or Pain unrelieved by non-narcot ic analgesics (prn pain). HYDROcodone 2020- No 1{tbl} Take 1 Tab Univers -acetaminop 8-27 03-16 by mouth ity of hen (NORCO) 00:00: 00:00 every 4 [place] 10-325 mg 00 :00 (four) Medical tablet hours as Branch needed for Pain (scale 4-6), Pain (scale 7-10) or Pain unrelieved by non-narcot ic analgesics (prn pain). docusate 2020- No 100mg Take 1 Cap U nivers (COLACE) 02-1212 by mouth ity of 100 mg 00:00: 00:00 daily. [place] capsule 00 :00 Medical Branch methocarbam 2020- No 500mg Take 1 Tab Univers ol 02-12 by mouth 4 ity of (ROBAXIN) 00:00: 00:00 (four) [place] 500 mg 00 :00 times Medical tablet daily as Branch needed (back pain/spasm s). traMADOL 2020- No 50mg Take 1 Tab Un héctor (ULTRAM) 50 02-12 by mouth ity of mg tablet 00:00: 00:00 every 6 [place] 00 :00 (six) Medical hours as Branch needed for Pain. docusate 2020- No 100mg Take 1 Cap U nivers (COLACE) 02-12 by mouth ity of 100 mg 00:00: 00:00 daily. [place] capsule 00 :00 Medical Branch methocarbam 2020- No 500mg Take 1 Tab Univers ol 02-12 by mouth 4 ity of (ROBAXIN) 00:00: 00:00 (four) [place] 500 mg 00 :00 times Medical tablet daily as Branch needed (back pain/spasm s). traMADOL 2020- No 50mg Take 1 Tab Un héctor (ULTRAM) 50 02-1212 by mouth ity of mg tablet 00:00: 00:00 every 6 [place] 00 :00 (six) Medical hours as Branch needed for Pain. docusate 2020- No 100mg Take 1 Cap U nivers (COLACE) 02-12 by mouth ity of 100 mg 00:00: 00:00 daily. [place] capsule 00 :00 Medical Branch methocarbam 2020- No 500mg Take 1 Tab Univers ol 02-1212 by mouth 4 ity of (ROBAXIN) 00:00: 00:00 (four) [place] 500 mg 00 :00 times Medical tablet daily as Branch needed (back pain/spasm s). traMADOL 2020- No 50mg Take 1 Tab Un héctor (ULTRAM) 50 8-27 02-12 by mouth ity of mg tablet 00:00: 00:00 every 6 [place] 00 :00 (six) Medical hours as Branch needed for Pain. sulfamethox Yes 1{tbl} Take 1 Tab Univers azole-trime 3-08 by mouth 2 it y of thoprim 00:00: (two) [place] (BACTRIM 00 times Medical DS) 800-160 daily. Branch mg tablet sulfamethox Yes 1{tbl} Take 1 Tab Univers azole-trime 3-08 by mouth 2 it y of thoprim 00:00: (two) [place] (BACTRIM 00 times Medical DS) 800-160 daily. Branch mg tablet sulfamethox Yes 1{tbl} Take 1 Tab Univers azole-trime 3-08 by mouth 2 it y of thoprim 00:00: (two) [place] (BACTRIM 00 times Medical DS) 800-160 daily. Branch mg tablet sulfamethox Yes 1{tbl} Take 1 Tab Univers azole-trime 3-08 by mouth 2 it y of thoprim 00:00: (two) [place] (BACTRIM 00 times Medical DS) 800-160 daily. Branch mg tablet sulfamethox 2020- No 1{tbl} Take 1 Tab Univers azole-trime 3-08 02-12 by mouth 2 i ty of thoprim 00:00: 00:00 (two) [place] (BACTRIM 00 :00 times Medical DS) 800-160 daily. Branch mg tablet sulfamethox 2020- No 1{tbl} Take 1 Tab Univers azole-trime 3-08 02-12 by mouth 2 i ty of thoprim 00:00: 00:00 (two) [place] (BACTRIM 00 :00 times Medical DS) 800-160 daily. Branch mg tablet sulfamethox 2020- No 1{tbl} Take 1 Tab Univers azole-trime 3-08 02-12 by mouth 2 i ty of thoprim 00:00: 00:00 (two) [place] (BACTRIM 00 :00 times Medical DS) 800-160 daily. Branch mg tablet Vital Signs Vital Name Observation Time Observation Value Comments Source WEIGHT 2022-05-06 06:12:00 57.063 kg WEIGHT 2022-05-05 06:00:00 60.102 kg WEIGHT 2022-05-04 06:00:00 51 kg HEIGHT 2022-04-30 06:00:00 160 cm HEIGHT 2022-04-30 01:00:00 160 cm WEIGHT 2022-04-29 07:00:00 51.6 kg HEIGHT 2022-04-29 07:00:00 160 cm WEIGHT 2022-05-06 06:12:00 57.063 kg WEIGHT 2022-05-05 06:00:00 60.102 kg WEIGHT 2022-05-04 06:00:00 51 kg HEIGHT 2022-04-30 06:00:00 160 cm HEIGHT 2022-04-30 01:00:00 160 cm WEIGHT 2022-04-29 07:00:00 51.6 kg HEIGHT 2022-04-29 07:00:00 160 cm WEIGHT 2022-05-06 06:12:00 57.063 kg WEIGHT 2022-05-05 06:00:00 60.102 kg WEIGHT 2022-05-04 06:00:00 51 kg HEIGHT 2022-04-30 06:00:00 160 cm HEIGHT 2022-04-30 01:00:00 160 cm WEIGHT 2022-04-29 07:00:00 51.6 kg HEIGHT 2022-04-29 07:00:00 160 cm Systolic blood 2020-10-01 13:03:00 98 mm[Hg] Univer sity of pressure [facility] Diastolic blood 2020-10-01 13:03:00 79 mm[Hg] Unive rsity of [facility] Heart rate 2020-10-01 13:03:00 64 /min [facility] Body temperature 2020-10-01 13:03:00 36.83 Mar Univ ersity [facility] Respiratory rate 2020-10-01 13:03:00 18 /min Univ ersity [facility] Body weight 2020-10-01 13:03:00 73.029 kg [facility] BMI 2020-10-01 13:03:00 28.52 kg/m2 [facility] Oxygen saturation in 2020-10-01 13:03:00 97 /min [facility] Arterial blood by [facility] Pulse oximetry Branch Systolic blood 2020-09-16 18:59:00 100 mm[Hg] Univer sity of pressure [place] [facility] Diastolic blood 2020-09-16 18:59:00 59 mm[Hg] Unive rsity of pressure [place] [facility] Heart rate 2020-09-16 18:59:00 69 /min Universi ty of [place] [facility] Body height 2020-09-16 18:59:00 160 cm Universi ty of [place] [facility] Body weight 2020-09-16 18:59:00 73.029 kg Universi ty of [place] [facility] BMI 2020-09-16 18:59:00 28.52 kg/m2 Universi ty [facility] [place] [facility] Systolic blood 2020-09-01 16:11:00 118 mm[Hg] Univer sity of pressure [place] [facility] Diastolic blood 2020-09-01 16:11:00 72 mm[Hg] Unive rsity of [facility] Heart rate 2020-09-01 16:11:00 51 /min Universi ty of [place] [facility] Body temperature 2020-09-01 16:11:00 36.39 Mar Univ ersity of [facility] Respiratory rate 2020-09-01 16:11:00 18 /min [facility] Oxygen saturation in 2020-09-01 16:11:00 97 /min University of Arterial blood by [facility] Pulse oximetry Branch Body height 2020-08-31 17:50:00 160 cm [facility] [place] [facility] Body weight 2020-08-31 17:50:00 73.029 kg [facility]i ty [facility] [place] [facility] BMI 2020-08-31 17:50:00 28.52 kg/m2 [facility] [place] [facility] Systolic blood 2020-08-24 20:38:00 105 mm[Hg] Univer sity of pressure [place] [facility] Diastolic blood 2020-08-24 20:38:00 69 mm[Hg] Unive rsity of pressure [place] [facility] Heart rate 2020-08-24 20:38:00 60 /min [facility]i ty [facility] [place] [facility] Body height 2020-08-24 20:38:00 160 cm [facility]i [facility] [place] [facility] Body weight 2020-08-24 20:38:00 74.208 kg [facility]i ty [facility] [place] [facility] BMI 2020-08-24 20:38:00 28.98 kg/m2 [facility] [place] [facility] Systolic blood 2020-07-31 20:10:00 124 mm[Hg] Univer sity of pressure [facility] Branch Diastolic blood 2020-07-31 20:10:00 78 mm[Hg] Unive rsity of pressure [facility] Heart rate 2020-07-31 20:10:00 63 /min Universi ty of [facility] Respiratory rate 2020-07-31 20:10:00 20 /min Univ ersity of [facility] Body height 2020-07-31 20:10:00 160 cm [facility] [place] [facility] Body weight 2020-07-31 20:10:00 75.751 kg [facility] [place] [facility] BMI 2020-07-31 20:10:00 29.58 kg/m2 Universi ty of [facility] Oxygen saturation in 2020-07-31 20:10:00 98 /min [facility] Arterial blood by [facility] Pulse oximetry Branch Systolic blood 2020-07-22 19:23:00 113 mm[Hg] Univer sity of pressure [place] [facility] Diastolic blood 2020-07-22 19:23:00 69 mm[Hg] Unive rsity of pressure [facility] Body height 2020-07-22 19:23:00 160 cm [facility]i [facility] [place] [facility] Body weight 2020-07-22 19:23:00 77.384 kg [facility] [place] [facility] BMI 2020-07-22 19:23:00 30.22 kg/m2 [facility] [place] [facility] Systolic blood 2022-05-06 08:29:00 101 mm[Hg] [facility] Diastolic blood 2022-05-06 08:29:00 57 mm[Hg] [facility] Heart rate 2022-05-06 08:29:00 73 /min [facility] Body temperature 2022-05-06 08:29:00 36.5 Mar [facility] Respiratory rate 2022-05-06 08:29:00 18 /min [facility] Oxygen saturation in 2022-05-06 08:29:00 98 /min [facility] Arterial blood by Medical Ce nter Pulse oximetry Body weight 2022-05-06 06:12:00 57.063 kg [facility] BMI 2022-05-06 06:12:00 22.29 kg/m2 [facility] Body height 2022-04-30 06:00:00 160 cm [facility] Procedures Procedure Date / Time Performing Clinician Source Performed POCT-GLUCOSE METER 2022-05-06 06:32:00 [facility] SARS-COV2/RT-PCR ([facility] & 2022-05-06 06:18:[address] [facility] REF LABS) [place] BASIC METABOLIC PANEL 2022-05-06 03:01[facility]00 [facility] 2022-05-06 03:01:00 [facility] PHOSPHORUS 2022-05-06 03:01:00 [facility] 2022-05-06 03:01:00 [facility] CBC W/PLT COUNT & AUTO 2022-05-06 03:00:00 [facility] DIFFERENTIAL [facility] CBC W/PLT COUNT & AUTO 2022-05-06 03:00:00 [facility] POCT-GLUCOSE METER 2022-05-06 00:06:00 [facility] POCT-GLUCOSE METER 2022-05-05 12:33:00 [facility] 2022-05-05 08:58:00 [facility]OL[facility] 2022-05-05 04:25[facility] 2022-05-05 04:25:00 [facility] PHOS[facility]US 2022-05-05 04:25:00 [facility] CBC W/PLT COUNT & AUTO 2022-05-05 04:25:00 [facility] [place] HEPATIC FUNCTION PANEL 2022-05-05 04:25:00 [facility] W/PLT COUNT & AUTO 2022-05-05 04:25:00 [facility] POCT-GLUCOSE METER 2022-05-04 21:50:00 Merchant, [facility] POCT-GLUCOSE METER 2022-05-04 16:07:00 Merchant, [facility] POCT-GLUCOSE METER 2022-05-04 11:25:00 Merchant, [facility] MR ABDOMEN WITHOUT IV 2022-05-04 08:34:00 [facility] POCT-GLUCOSE METER 2022-05-04 07:03:00 Merchant, [facility] BASIC METABOLIC PANEL 2022-05-04 04:56:00 [facility] [place] MAGNESIUM 2022-05-04 04:56:00 Lightle, [facility] PHOSPHORUS 2022-05-04 04:56:00 [facility] CBC W/PLT COUNT & AUTO 2022-05-04 04:56:00 [facility] 2022-05-04 04:56:00 [facility] CBC W/PLT COUNT & AUTO 2022-05-04 04:56:00 [facility] POCT-GLUCOSE METER 2022-05-04 04:44:00 [facility] PO[facility]SE METER 2022-05-03 23:07:00 [facility] HEMOGLOBIN AND HEMATOCRIT 2022-05-03 16:54:00 [facility] POCT-GLUCOSE METER 2022-05-03 16:08:00 [facility] XR CHEST 1 VIEW PORTABLE 2022-05-03 15:09:00 [facility] POCT-GLUCOSE METER 2022-05-03 12:51:00 [facility] POCT-GLUCOSE METER 2022-05-03 08:29:00 [facility] PREPARE RBC 2022-05-03 07:05:00 Cait Askew [facility] BASIC METABOLIC PANEL 2022-05-03 04:33:00 Lightle, [facility] MAGNESIUM 2022-05-03 04:33:00 [facility] PH[facility]US 2022-05-03 04:33:00 [facility] HEPATIC FUNCTION PANEL 2022-05-03 04:33:00 [facility] TRIGLYCERIDES 2022-05-03 04:33:00 [facility] CBC W/PLT COUNT & AUTO 2022-05-03 04:32:00 [facility] DI[facility]ENTIAL [facility] CBC W/PLT COUNT & AUTO 2022-05-03 04:32:00 [facility] POCT-GLUCOSE METER 2022-05-03 03:55:00 [facility] POCT-GLUCOSE METER 2022 20:04:00 [facility] POCT-GLUCOSE METER 2022 16:19:00 [facility] POCT-GLUCOSE METER 2022 11:14:00 [facility] 2D ECHO W/ DOPPLER 2022 10:23:42 [facility] (CW/PW/COLOR) [place] HEPATIC FUNCTION PANEL 2022 09:57:00 [facility] POCT-[facility]SE METER 2022 07:19:00 [facility] POCT-GLUCOSE METER 2022 04:08:00 [facility] VANCOMYCIN LEVEL, TROUGH 2022 00:51:00 Natalia Gonzalez [facility] BASIC METABOLIC PANEL 2022 00:51:00 [facility] 2022 00:51:00 [facility] PHOS[facility]US 2022 00:51:00 [facility] CBC W/PLT COUNT & AUTO 2022 00:51:00 [facility] DIFFERENTIAL [facility] CBC W/PLT COUNT & AUTO 2022 00:51:00 [facility] POCT-GLUCOSE METER 2022-05-01 23:41:00 [facility] POCT-GLUCOSE METER 2022-05-01 20:16:00 [facility] POCT-GLUCOSE METER 2022-05-01 17:32:00 [facility] CT ABDOMEN/PELVIS WITH IV 2022-05-01 17:16:00 [facility] CONTRAST [place] HEMOGLOBIN AND HEMATOCRIT 2022-05-01 16:52:00 Renny Still [facility] Poppy [place] POCT-GLUCOSE METER 2022-05-01 11:24:00 [facility] CBC W/PLT COUNT & AUTO 2022-05-01 11:04:00 [facility] Thao [place] TSH/FREE T4 IF INDICATED 2022-05-01 11:04:00 [facility] CBC W/PLT COUNT & AUTO 2022-05-01 11:04:00 [facility] DIFFERENTIAL Thao [place] CALCIUM, IONIZED 2022-05-01 09:57:00 Latia Johns [facility] Thao [place] BASIC METABOLIC PANEL 2022-05-01 09:57:[address] [facility] MAGNESIUM 2022-05-01 09:57:[address] [facility] HEPATIC FUNCTION PANEL 2022-05-01 09:57:00 [facility] POCT-GLUCOSE METER 2022-05-01 09:33:00 Alex, [facility] ECG 12-LEAD 2022-05-01 09:27:39 Azar Cait Clausgadiel [facility] ECG 12-LEAD 2022-05-01 09:27:39 Unknown, Hl7 Doctor [facility] LACTIC ACID, VENOUS 2022-05-01 08:41:00 [facility] POCT-GLUCOSE METER 2022-05-01 06:15:00 Cheko, [facility] CBC W/PLT COUNT & AUTO 2022-05-01 02:04:00 Lightle, [facility] VANCOMYCIN LEVEL, TROUGH 2022-05-01 02:04:00 Nereyda Campbell [facility] BASIC METABOLIC PANEL 2022-05-01 02:04:00 Lightle [facility] MAGNESIUM 2022-05-01 02:04:[address] [facility] PHOSPHORUS 2022-05-01 02:04:[address] [facility] CBC W/PLT COUNT & AUTO 2022-05-01 02:04:00 Lightle [facility] DIFFERENTIAL [facility] POCT-GLUCOSE METER 2022-05-01 00:24:00 Cheko [facility] POCT-GLUCOSE METER 2022-04-30 23:49:00 Cheko [facility] POCT-GLUCOSE METER 2022-04-30 17:55:00 Cheko, [facility] POCT-GLUCOSE METER 2022-04-30 12:20:00 Cheko [facility] HEMOGLOBIN AND HEMATOCRIT 2022-04-30 11:40:00 Cait Askew [facility] HEMOGLOBIN AND HEMATOCRIT 2022-04-30 08:16:00 Cait Askew [facility] LACTIC ACID, VENOUS 2022-04-30 08:16:00 [facility] POCT-GLUCOSE METER 2022-04-30 06:19:00 Cait Askew [facility] CBC W/PLT COUNT & AUTO 2022-04-30 03:39:00 [facility] DIFFERENTIAL [facility] VITAMIN B12 2022-04-30 03:39:00 Cait Askew [facility] IRON, TIBC, % SAT. 2022-04-30 03:39:00 [facility] [place] HC LAB HIV-1 AG W/HIV-1&2 2022-04-30 03:39:00 Cait Askew [facility] RPR 2022-04-30 03:39:00 Cait Askew [facility] HEMOGLOBIN A1C 2022-04-30 03:39:00 Cait Askew [facility] VITAMIN D, 25-HYDROXY 2022-04-30 03:39:00 Cait Askew [facility] BASIC METABOLIC PANEL 2022-04-30 03:39:00 [facility] MAGNESIUM 2022-04-30 03:39:00 [facility] PHOSPHORUS 2022-04-30 03:39:00 [facility] CBC W/PLT COUNT & AUTO 2022-04-30 03:39:00 [facility] DIFFERENTIAL [facility] HEMOGLOBIN AND HEMATOCRIT 2022-04-30 00:24:00 Cait Askew [facility] POCT-GLUCOSE METER 2022-04-29 23:50:00 Cait Askew [facility] LACTIC ACID, VENOUS 2022-04-29 20:10:00 [facility] HEMOGLOBIN AND HEMATOCRIT 2022-04-29 20:10:00 Cait Askew [facility] ECG 12-LEAD 2022-04-29 17:46:03 Unknown, Hl7 [facility] ECG 12-LEAD 2022-04-29 17:46:03 Unknown, Hl7 [facility] HEMOGLOBIN AND HEMATOCRIT 2022-04-29 16:06:00 Cait Askew [facility] TRANSFUSE LEUKO-REDUCED 2022-04-29 15:31:00 [facility]LOOD CELLS Center ANTIBODY IDENTIFICATION 2022-04-29 15:05:00 Cait Askew [facility] FL UPPER GI 2022-04-29 14:06:00 [facility] HEMOGLOBIN AND HEMATOCRIT 2022-04-29 11:18:00 Cait Askew [facility] BLOOD CULTURE 2022-04-29 11:06:00 [facility] BLOOD C[facility] 2022-04-29 10:48:00 Cait Askew [facility] ABORH, MANUAL 2022-04-29 10:47:00 Cait Askew [facility] PREALBUMIN 2022-04-29 10:47:00 [facility] CBC W/PLT COUNT & AUTO 2022-04-29 08:57:00 [place] [facility] CBC W/PLT COUNT & AUTO 2022-04-29 08:57:00 [place] [facility] BLOOD GAS, VENOUS 2022-04-29 08:57:00 Alverto, Zelda [facility] APTT 2022-04-29 08:57:00 HughSandie [facility] XR CHEST 1 VIEW PORTABLE 2022-04-29 08:16:00 Khurram Torres [facility] / BEDSIDE Rauton [place] SARS-COV2/RT-PCR ([facility] & 2022-04-29 08:07:[address] [facility] REF LABS) Center LACTIC ACID, VENOUS 2022-04-29 08:04:00 Cait Askew [facility] PROTHROMBIN TIME/INR 2022-04-29 07:59:00 [place] [facility] COMPREHENSIVE METABOLIC 2022-04-29 07:58:00 Zelda Watt [facility] PANEL [facility] MAGNESIUM 2022-04-29 07:58:00 [place] [facility] TYPE AND SCREEN, 2022-04-29 07:50:[address] [facility] AUTOMATED Center EKG-SCANNED 2022-04-29 00:00:00 Provider, Giuliana [facility] Medical Scanning Center HOME HEALTH - OTHER 2020-11-12 05:01:00 Doctor Nina, [facility] [place] [facility] XR KNEE <3 VW LEFT 2020-10-01 14:25:16 Yousuf Leyva [facility] NOTICE OF PRIVACY 2020-10-01 12:54:07 Doctor Nina, [facility] PRACTICES [place] [facility] CONSENT/REFUSAL FOR 2020-10-01 12:53:36 Doctor Nina [facility] DIAGNOSIS AND TREATMENT [place] [facility] XR KNEE 3 VW LEFT 2020-09-16 18:29:42 Bonifacio Flor [facility] HOME HEALTH 485 2020-09-08 05:01:00 Doctor Nina, [facility] [facility] BASIC METABOLIC PANEL 2020-09-01 09:26:00 [facility] (NA, K, CL, CO2, GLUCOSE, Medica l Branch BUN, CREATININE, CA) CBC WITH DIFF 2020-09-01 09:26:00 Bonifacio Flor [facility] XR KNEE <3 VW LEFT 2020-08-31 16:05:48 Bonifacio Flor [facility] TOTAL KNEE ARTHROPLASTY 2020-08-31 13:05:00 Bonifacio Flor [facility] [place] DAY SURGERY - ADC 2020-08-31 05:01:00 Doctor Unassigned, [facility] [place] [facility] XR CHEST 2 VW 2020-08-28 15:07:52 Bonifacio Flor [facility] ASSIGNMENT OF BENEFITS 2020-08-28 14:50:49 Doctor Unassigned, [facility] [place] [facility] ASSIGNMENT OF BENEFITS 2020-08-27 20:33:08 Doctor Unassshalonda, [facility] Name Medical Branch INSURANCE CORRESPONDENCE 2020-08-26 06:01:00 Doctor Nina, [facility] [place] [facility] DSU PRE-OP 2020-08-25 06:01:00 Doctor Unassshalonda, [facility] [place] [facility] EXTERNAL PROVIDER - [facility] 2020-08-10 06:01:00 Doctor Unabiju, [facility] CARDIOLOGY [place] [facility] ASSIGNMENT OF BENEFITS 2020-07-31 21:19:43 Doctor Unassigned, [facility] Name Medical Branch [place] ELECTROCARDIOGRAM, 2020-07-31 20:19:40 Donavan Kumar [facility] [place] Plan of Care Planned Activity Planned Date Details Comments Source Future Scheduled 2023-04-[address] [facility] 00:00:00 Counseling and Medical Cente r Screening (12+) [code = Tobacco Cessation Counseling and Screening (12+)] Future Scheduled 2023-02-17 Influenza Vaccine (#1) [facility] 00:[facility]00 [code = Influenza Medical Ce nter Vaccine (#1)] Future Scheduled 2022-06-[address] [facility] 00:00:00 (12+) [code = Medical Center DEPRESSION SCREENING (12+)] Future Scheduled 2021 SHINGLES VACCINES ([address] [facility] 00:00:00 2) [facility]1 [facility] 2)] Future Scheduled 2016 Lipid panel (procedure) [facility] 00:00:00 [code = 19921366] Medical Ce nter Future Scheduled 1992 Screening for malignant [facility] Test 00:00:00 neoplasm of cervix Medical C enter (procedure) [code = 057170802] Future Scheduled 1990 DTAP/TDAP/TD VACCINES [facility] 00:00:00 (1 - Tdap) [code = Medical C enter DTAP/TDAP/TD VACCINES (1 - Tdap)] Future Scheduled 1989 HEPATITIS C SCREENING [facility] 00:00:00 [code = HEPATITIS C Medical Center SCREENING] Future Scheduled 1971 COVID-19 VACCINE (#1) [facility] 00:00:00 [code = COVID-[address] VACCINE (#1)] Future Scheduled 1971 Screening for malignant [facility] Test 00:00:00 neoplasm of breast Medical C enter (procedure) [code = 479745488] Future Scheduled 1971 CT Colonography (combo) [facility] 00:00:00 [code = CT Colonography [facility] (combo)] Future Scheduled 1971 Screening for malignant [facility] Test 00:00:00 neoplasm of colon Medical Ce nter (procedure) [code = 412724315] Future Scheduled 1971 Screening for malignant [facility] Test 00:00:00 neoplasm of colon Medical Ce nter (procedure) [code = 419485489] Future Scheduled 1971 Screening for malignant [facility] Test 00:00:00 neoplasm of colon Medical Ce nter (procedure) [code = 322974046] Future Scheduled 1971 Screening for malignant [facility] Test 00:00:00 neoplasm of colon Medical Ce nter (procedure) [code = 426919194] Future Scheduled 1971 Sigmoidoscopy [code = [facility] 00:[facility]00 Sigmoidoscopy] Medical Cente r Encounters Start End Encounter Admission Attending Care Care Encounter Source Date/Time Date/Time Type Type Clinicians Facility Department ID 2021-04-18 Emergency [facility] [id number] Univers 13:02:15 ity [facility] 2021-04-18 Inpatient R CHACHO, [facility] SOR [id number] Univers 04:35:50 BONIFACIO ity [facility] 2023-01-25 2023-01-25 Emergency Emergency Estevan, [facility] [id number] [facility] 12:01:00 12:01:00 Donna 29 2023-01-25 2023-01-25 Emergency [facility] [id number] [facility] 12:01:00 12:01:00 29 2022-04-29 2022-05-06 Inpatient ER [facility] Internal [id number] [facility] 06:18:00 15:16:00 [facility] 2022-04-29 2022-05-06 Hospital Zelda Watt [facility] [id number] [facility] 06:18:00 15:16:00 Encounter Cait sAkew [facility], [facility] [place] 2022-05-01 2022-05-01 Orders [facility] [id number] 00:00:00 00:00:00 Only [facility] 2022-04-29 2022-04-29 Orders [facility] [id number] 00:00:00 00:00:00 Only [facility] 2022-04-29 2022-04-29 Travel [facility] [id number] [facility] 00:[facility] 00:00:00 [facility] 2020-11-12 2020-11-12 Orders Doctor ASHER [id number] Univers 00:00:00 00:00:00 Only Unassigned, KARON 350.1.13.10 ity of [place] [facility] 4.2.7.2.686 Martin as [phone] [address] 2020-10-28 2020-10-28 Telephone Tonio Lester 1.2.840.114 [id number] Univers 00:00:00 00:00:00 , Alcira L Ojeda 350.1.13.10 ity of [place] [id number] [facility] [address] [place] 2020-10-14 2020-10-14 Outpatient Jasmin RINCON [facility] [id number] Univers 13:00:00 13:00:00 ELIZA ity of [facility] 2020-10-01 2020-10-01 Emergency [facility] [id number] Univers 08:04:00 09:51:00 Yousuf Arias 350.1.13.10 i ty of [place] [phone] [address] 2020-09-30 2020-09-30 Telephone [facility] 1.2.840.114 [id number] Univers 00:00:00 00:00:00 Bonifacio Christensen 350.1.13.10 it y of Surgical 4.2.7.2.686 [place] as Specialti [id number] Sd dical es 198 [facility] 2020-09-16 2020-09-16 Hospital [facility] 1.2.840.114 [id number] Univers 13:09:19 23:59:00 Encounter Bonifacio Arias 350.1.13.10 [place] [phone] [facility] 807 [place] 2020-09-16 2020-09-16 Office [facility] [id number] Univers 13:52:33 14:21:07 Visit Bonifacio Christensen 350.1.13.10 it y of Surgical 4.2.7.2.686 [place] as Specialti [phone] Sd dical es 198 [facility] 2020-09-16 2020-09-16 Outpatient R CHACHO [facility] [id number] Univers 00:00:00 00:00:00 BONIFACIO kaur of [facility] 2020-09-15 2020-09-15 Telephone [facility] 1.2.840.114 [id number] Univers 00:00:00 00:00:00 Bonifacio Nash [facility] 350.1.13.10 it y of Surgical 4.2.7.2.686 [place] as Specialti [phone] Sd dical es 198 [facility] 2020-09-09 2020-09-09 Telephone [facility] 1.2.840.114 [id number] Univers 00:00:00 00:00:00 Bonifacio Nash [facility] 350.1.13.10 it y of Surgical 4.2.7.2.686 [place] as Specialti [phone] Sd dical es 198 [facility] 2020-09-08 2020-09-08 Orders Doctor LB 1.2.840.114 [id number] Univers 00:00:00 00:00:00 Only Unassigned, KARON 350.1.13.10 ity of [place] [facility] 4.2.7.2.686 [place] as [phone] [facility] 009 [place] 2020-09-07 2020-09-07 Telephone [facility] 1.2.840.114 [id number] Univers 00:00:00 00:00:00 Bonifacio Nash [facility] 350.1.13.10 it y of Surgical 4.2.7.2.686 [place] as Specialti [phone] Sd dical es 198 [facility] 2020-09-03 2020-09-03 Patient [facility] 1.2.840.114 [id number] Univers 00:00:00 00:00:00 Outreach Curtis [facility] 350.1.13.10 i ty of [facility] 4.2.7.2.[place] [facility] [phone] Sd dical 388 [place] 2020-08-31 2020-09-01 [facility] 1.2.840.114 [id number] Univers 07:09:00 16:10:00 Encounter Bonifacio Arias 350.1.13.10 ity [place] [id number] [facility] 081 Branch 2020-08-31 2020-08-31 Orders Doctor ASHER 1.2.840.114 [id number] Univers 00:00:00 00:00:00 Only Unassigned, KARON 350.1.13.10 ity of [place] [facility] 4.2.7.2.686 [place] as [phone] [facility] 009 [place] 2020-08-28 2020-08-28 Hospital Chacho [facility] 1.2.840.114 [id number] Univers 08:53:54 23:59:00 Encounter Bonifacio Arias 350.1.13.10 ity of [place] 4.2.7.2.686 [facility] [phone] [facility] 807 Branch 2020-08-28 2020-08-28 Laboratory Only, Adc Test [facility] 1.2.840. 114 [id number] Univers 08:51:40 09:06:40 Only Bonifacio Flor 350.1.13.10 ity of [place] 4.2.7.2.686 [place] [facility] [id number] [facility] 353 [place] 2020-08-28 2020-08-28 [facility] [id number] Univers 08:00:00 08:00:00 [facility] 2020-08-28 2020-08-28 Orders Doctor LB 1.2.840.114 [id number] Univers 00:00:00 00:00:00 Only Unassigned, KARON 350.1.13.10 ity of [place] [facility] 4.2.7.2.686 Martin as [id number] [facility] 009 [place] 2020-08-27 2020-08-27 [facility] [id number] Univers 15:30:00 15:30:00 BONIFACIO kaur [facility] 2020-08-27 2020-08-27 Ingot Caster Bryan, Adc Lab Main [facility] 1.2.8 [id number] Univers 14:39:37 14:54:37 Visit Chacho Bonifacio [place] 350.1.13.10 ity of [place] Professio [id number] [facility] 353 [facility] 2020-08-27 2020-08-27 [facility] [id number] Univers 13:00:00 13:00:00 BONIFACIO ity of [facility] 2020-08-27 2020-08-27 Orders Doctor LB 1.2.840.114 [id number] Univers 00:00:00 00:00:00 Only Unassigned, KARON 350.1.13.10 ity of [place] [facility] 4.2.7.2.686 Martin as [id number] [address] 2020-08-26 2020-08-26 Orders Doctor LB 1.2.840.114 [id number] Univers 00:00:00 00:00:00 Only Unassigned, KARON 350.1.13.10 ity of [place] [facility] 4.2.7.2.686 [place] as [id number] [address] 2020-08-25 2020-08-25 Prep For [facility] 1.2.840.114 [id number] Univers 00:00:00 00:00:00 Surgery Bonifacio [facility] 350.1.13.10 it y of Surgical 4.2.7.2.686 [place] as Specialti [phone] Sd dical es 198 [facility] 2020-08-24 2020-08-24 [facility] 1.2.840.114 [id number] Univers 14:35:54 23:59:00 Encounter Bonifacio [facility] 350.1.13.10 ity of Surgical 4.2.7.2.686 [place] as Specialti [phone] Me dical es 809 [facility] 2020-08-24 2020-08-24 Office [facility] 1.2.840.114 [id number] Univers 14:32:35 14:47:35 Visit [facility] 350.1.13.10 it y of Surgical 4.2.7.2.686 [place] as Specialti [phone] Sd dical es 198 [facility] 2020-08-24 2020-08-24 Outpatient [facility] [id number] Univers 14:30:00 14:30:00 ELIZA [facility] 2020-08-17 2020-08-17 Telephone José [facility] [id number] Univers 00:00:00 00:00:00 Donavan Prakash [place] 350.1.13.10 it[place] of [place] [phone] Sd dical nal 059 [facility] 2020-08-14 2020-08-14 Telephone Chacho MNLOLA 1.2.840.114 [id number] Univers 00:00:00 00:00:00 Bonifacio [facility] 350.1.13.10 it y of Surgical 4.2.7.2.686 [place] as Specialti [phone] Sd dical es 198 [facility] 2020-08-10 2020-08-10 Orders Doctor LB 1.2.840.114 [id number] Univers 00:00:00 00:00:00 Only Unassigned, KARON 350.1.13.10 ity of [place] [facility] 4.2.7.2.686 [place] as [id number] [address] 2020-07-31 2020-07-31 Office José [facility] 1.2.840.114 [id number] Univers 13:43:54 14:33:58 Visit Donavan Prakash Hugo 350.1.13.10 it[place] [phone] Sd jinazafar nal 059 [facility] 2020-07-31 2020-07-31 Outpatient R JOSÉ [facility] [id number] Univers 14:00:00 14:00:00 SENDGENET kaur [facility] 2020-07-31 2020-07-31 Orders Doctor LB 1.2.840.114 [id number] Univers 00:00:00 00:00:00 Only Unassigned, KARON 350.1.13.10 ity of [place] [facility] 4.2.7.2.686 Martin as [id number] [address] 2020-07-22 2020-07-22 Out[facility] [id number] Univers 15:30:00 15:30:00 BONIFACIO ity [facility] 2020-07-22 2020-07-22 Office [facility] [id number] Univers 13:15:34 13:32:47 Visit Bonifacio Nash [place] 350.1.13.10 it y of Surgical 4.2.7.2.686 [place] as Specialti [phone] Sd dical es 198 [facility] 2020-07-22 2020-07-22 Outpatient R CHACHO [facility] [id number] Univers 13:15:00 13:15:00 BONIFACIO kaur [facility] 2019-07-15 2019-07-15 Telephone Chacho [facility] 1.2.840.114 [id number] Univers 00:00:00 00:00:00 Bonifacio Nash [place] [id number] it y of Surgical [id number] Martin as Specialti [id number] Sd tang es 198 [facility] 2019-01-18 2019-01-18 Telephone Chacho [facility] [id number] Univers 00:00:00 00:00:00 Bonifacio Nash [place] [id number] it y of Surgical [id number] Martin as Specialti [id number] [facility] es 198 [facility] Results Test Description Test Time Test Comments Results Result Comments Source UA, Urinalysis Rflx Cult/Sedmt 2023-01-25 13:10:00 Test Item Value Reference Range Interpretation Comme nts Color,Urine (test code = UCOL) Yellow Yellow Clarity,Urine (test code = UCLAR) Clear Clear Ph, Urine (test code = UPH) 7.5 5.0-9.0 N Specific Duncan,Urine (test code = USG) 1.015 1.005-1.030 N Blood,Urine (test code = UBLD) Negative mg/dL Negative Protein,Urine (test code = UPRO) Negative mg/dL Negative Glucose,Urine (UA) (test code = UGLU) Negative mg/dL Negative Ketones,Urine (test code = UKET) Negative mg/dL Negative Nitrate,Urine (test code = UNIT) Negative Negative Bilirubin,Urine (test code = UBIL) Negative mg/dL Negative Urobilinogen,Urine (test code = UURO) 1.0 E.U./dL Normal Leukocyte Esterase,Urine (test code = ULEU) Negative mg/dL Negative Drug Screen,[id number] 13:10:00 Test Item Value Reference Range Interpretation Comments PCP Phencyclidine Screen,Urine (test Negative Negative code = PCPU) Amphetamine Screen,Urine (test code Negative Negative = AMPU) Methadone Screen,Urine (test code = Positive Negative A METHU) Opiate Screen,Urine (test code = Positive Negative A UOPIS) Barbituates Screen,Urine (test code Negative Negative = BARBU) Benzodiazepines Screen,Urine (test Negative Negative code = UBENZS) Cocaine Screen,Urine (test code = Negative Negative UCOCS) Cannabinoid Screen,Urine (test code Negative Negative = UTHCS) Propoxyphene Screen, Urine (test Negative Negative code = UPROP) Complete Blood Count Auto [id number] 12:36:00 Test Item Value Reference Range Interpretation Comments White Blood Count (test code = 8.6 x10 3/uL 4.4-10.5 N WBCT) Red Blood Count (test code = 3.86 x10 6/uL 3.75-5.20 N RBC) Hemoglobin (test code = HGBT) 12.6 g/dL 12.2-14.8 N Hematocrit (test code = HCTT) 39.6 % 36.5-44.4 N Mean Corpuscular Volume (test 102.60 fL 80.00-100.00 H code = MCV) Mean Corpuscular Hemoglobin 32.6 pg 27.0-32.5 H (test code = MCH) Mean Corpuscular HGB Conc (test 31.80 g/dL 32.00-37.50 L code = MCHC) RDW Coefficient of Variation 13.1 % 11.5-14.5 N (test code = RDWCV) Platelet Count (test code = 361 x10 3/uL 140.0-440.0 N PLTT) Mean Platelet Volume (test code 9.4 fL = MPV) Immature Granulocytes % (Auto) 0.3 % 0.0-5.0 N (test code = IMMGRAN%) Neutrophils % (Auto) (test code 81.9 % 36.0-70.0 H = NE%) Lymphocytes % (Auto) (test code 10.2 % 12.0-44.0 L = LY%) Monocytes % (Auto) (test code = 6.5 % 0.0-11.0 N MO%) Eosinophils % (Auto) (test code 0.8 % 0.0-7.0 N = EO%) Basophils % (Auto) (test code = 0.3 % 0.0-2.0 N BA%) Immature Granulocytes # (Auto) 0.03 x10 3/uL (test code = IMMGRAN#) Neutrophils # (Auto) (test code 7.0 x10 3/uL 1.6-7.4 N = NE#) Lymphocytes # (Auto) (test code 0.88 x10 3/uL 0.50-4.60 N = LY#) Monocytes # (Auto) (test code = 0.56 x10 3/uL 0.00-1.20 N MO#) Eosinophils # (Auto) (test code 0.07 x10 3/uL 0.00-0.74 N = EO#) Basophils # (Auto) (test code = 0.03 x10 3/uL 0.00-0.21 N BA#) nRBC Abs (test code = NRBCA) 0 nRBC Pct (test code = NRBCP) 0 % Comprehensive Metabolic [id number] 12:36:00 Test Item Value Reference Range Interpretation Comments SODIUM (test code = NA) 141.0 mmol/L 136.0-145.0 N Potassium,K (test code = 4.2 mmol/L 3.0-5.1 N K) Chloride (test code = 107 mmol/L 98-107 N CL) Carbon Dioxide (test 24 mmol/L 20-31 N code = CO2) Anion Gap (test code = 11 mmol/L 5-15 N GAP) Blood Urea Nitrogen 11 mg/dL 9-23 N (test code = BUN) Creatinine (test code = 0.63 mg/dL 0.55-1.02 N CREATT) Creatinine Clr Calc 77.57 mL/min Pharmacy (test code = CRCLPHA) Estimated Glomerular 101 See_Comment Reporte d eGFR is Filt Rate (test code = based on the EGFR.XX) CKD-EPI 2020 equation thatdo es not use a race coefficient. Additional information can be found at:[id number] cb_ egfr_summary_fl tangela 5.pdf (kidney.o rg) [Automated message] The system which generated this result transmit maddie reference range : >=90 ml/min/1.73m2. The reference range was not used to interpret this result as normal/abnormal . BUN/Creatinine Ratio 17 ratio 10-20 N (test code = BCRATIO) Glucose (test code = 94 mg/dL 74-106 N GLU) Osmolality,Calculated 290.9 (test code = OSMOC) Calcium (test code = CA) 9.2 mg/dL 8.3-10.6 N Bilirubin,Total (test 0.4 mg/dL 0.2-1.1 N code = BILIT) Aspartate Amino 30 U/L 0-34 N Transferase (test code = AST) Alanine Aminotransferase 33 U/L 10-49 N (test code = ALT) Total Protein (test code 7.4 g/dL 5.7-8.2 N = TP) Albumin Level (test code 4.7 g/dL 3.2-4.8 N = ALB) Globulin (test code = 2.7 mg/dL 2.3-3.5 N GLOB) Albumin/Globulin Ratio 1.7 ratio 0.8-2.0 N (test code = AGRATIO) Alkaline Phosphatase 131 U/L 46-116 H (test code = ALP) Ethanol [id number] 12:36:00 Test Item Value Reference Range Interpretation Comments Ethanol (test code < 3 mg/dL The pharm acological = ETOH) response to blo od alcohol levels mayvary from individual to i ndividual. The fatal chayito ntrationhas been reported t o be >400mg/dL. SARS-CoV2/RT-PCR (Asymptomatic ONLY)2022-05-06 08:26:27 Test Item Value Reference Interpretation Comments Range SARS-COV2/RT-PCR Negative Negative The SARS-Co V-2 (test code = target nucleic 30616-8) acids are not detected in thi s specimen. Negat dewey results do not preclude SARS-C oV-2 infection and should not be u sed as the sole bas is for patient management decisions. Nega tive results must be combined with clinical observations, patient history , and epidemiolog ical information. A false negative result may occu r if a specimen is improperly collected, transported or handled. This S ARS CoV-2 test is a rapid, real-lalito e RT-PCR test intended for th e qualitative detection of nucleic acid fr om SARS-CoV-2 in a nasopharyngeal swab specimen collec maddie from individual s suspected of COVID-19 by the ir healthcare provider. THADDEUS (test code = This test has been THADDEUS) authorized by FDA under an EUA for use by authorized laboratories. This test is only authorized for the duration of the declaration that circumstances exist justifying the authorization of emergency use of in vitro diagnostic tests for detection and/or diagnosis of COVID-19 under Section 564(b)(1) of the Federal Food, Drug and Cosmetic Act, 21 U.S.C. 360bbb-3(b)(1), unless the authorization is terminated or revoked sooner. Fact Sheet for Healthcare Providers: https://www.Vocalcom/Documents/Xp ert%20Xpress%20SAR S%20CoV-2/Fact%20S heets/302-3802%20S ARS-COV-2%20HEALTH CARE%20PROVIDERS%2 0FACT%20SHEET.pdf Fact Sheet for Healthcare Patients: https://www.Vocalcom/Documents/Xp ert%20Xpress%20SAR S%20CoV-2/Fact%20S heets/302-3801%20S ARS-COV-2%20PATIEN T%20FACT%20SHEET.p df Lab Interpretation Normal (test code = 07931-1) [facility]2022-05-06 08:26:27 Test Item Value Reference Range Interpretation Comments SARS-COV2/RT-PCR Negative Negative The SARS-Co V-2 target (test code = nucleic acids a re not 7105092) detected in thi s specimen. Negative result s do not preclude SARS-C oV-2 infection and s hould not be used as the deedee e basis for patient managem ent decisions. Nega tive results must be combine d with clinical observ ations, patient history , and epidemiological information. A false negativ e result may occur if a spec imen is improperly shawanda ected, transported or handled. This SARS CoV-2 test is a rapid, real-time RT-PC R test intended for th e qualitative detection of nu cleic acid from SARS-CoV-2 in a nasopharyngeal swab specimen collected from individuals suspected of CO VID-19 by their healthcar e provider. This test has been authorized by FDA under an EUA for use by authorized laboratories. This test is only authorized for the duration of the declaration that circumstances exist justifying the authorization of emergency use of in vitro diagnostic tests for detection and/or diagnosis of COVID-19 under Section 564(b)(1) of the Federal Food, Drug and Cosmetic Act, 21 U.S.C. 360bbb-3(b)(1), unless the authorization is terminated or revoked sooner. Fact Sheet for Healthcare Providers: https://www.[employer] m/Documents/Xpert%20Xpress%20SARS%20CoV-2/Fact%20Sheets/302-3802%82SCPN-HPM-7%20 HEALTHCARE%20PROVIDERS%20FACT%20SHEET.pdf Fact Sheet for Healthcare Patients: https://www.SmartExposee/Documents/Xpert%20Xp ress%20SARS%20CoV-2/Fact%20Sheets/302-3801%16YSHN-LUW-9%20PATIENT%20FACT%20SHEET .pdfPOC-Glucose [id number] 06:43:45 Test Item Value Reference Range Interpretation Comments POC-Glucose Meter (test 89 mg/dL 70-110 : TE STED AT [facility] code = 1538) [address] [facility], [address] 30: Insurance Commissioner/Techni claudia ID = [id number] for MIGUEL ÁNGEL QUEEN EY Lab Interpretation (test Normal code = 79341-4) [facility] [id number] 06:43:45 Test Item Value Reference Range Interpretation Comments POC-GLUCOSE METER 89 mg/dL 70-110 : TESTED A T [facility] 6720 (BEAKER) (test code = [facility], 1538) [address]: Insurance Commissioner/Techni claudia ID = [id number] for [facility]H [facility] CBC W/PLT COUNT & AUTO [id number] 06:31:51 Test Item Value Reference Range Interpretation Comments WHITE BLOOD CELL COUNT (AKER) 6.8 K/ L 3.5-10.5 (test code = 775) RED BLOOD CELL COUNT (AKER) 2.64 M/ L (test code = 761) HEMOGLOBIN (BEAKER) (test code = 8.7 GM/DL 11.2-15.7 L 410) HEMATOCRIT (BEAKER) (test code = 27.0 % 34.1-44.9 L 411) MEAN CORPUSCULAR VOLUME (BEAKER) 102 fL 79-95 H (test code = 753) MEAN CORPUSCULAR HEMOGLOBIN 33.0 pg 25.6-32.2 H (BEAKER) (test code = 751) MEAN CORPUSCULAR HEMOGLOBIN CONC 32.2 GM/DL 32.2-35.5 (BEAKER) (test code = 752) RED CELL DISTRIBUTION WIDTH 14.6 % 11.7-14.4 H (BEAKER) (test code = 412) PLATELET COUNT (BEAKER) (test 371 K/CU MM 150-450 code = 756) MEAN PLATELET VOLUME (BEAKER) 9.9 fL 9.4-12.3 (test code = 754) NEUTROPHILS RELATIVE PERCENT 61 % (BEAKER) (test code = 429) LYMPHOCYTES RELATIVE PERCENT 24 % (BEAKER) (test code = 430) MONOCYTES RELATIVE PERCENT 9 % (BEAKER) (test code = 431) EOSINOPHILS RELATIVE PERCENT 5 % (BEAKER) (test code = 432) BASOPHILS RELATIVE PERCENT 0 % (BEAKER) (test code = 437) NEUTROPHILS ABSOLUTE COUNT 4.17 K/ L 1.56-6.13 (BEAKER) (test code = 670) LYMPHOCYTES ABSOLUTE COUNT 1.62 K/ L 1.18-3.74 (BEAKER) (test code = 414) MONOCYTES ABSOLUTE COUNT (BEAKER) 0.64 K/ L 0.24-0.36 H (test code = 415) EOSINOPHILS ABSOLUTE COUNT 0.35 K/ L 0.04-0.36 (BEAKER) (test code = 416) BASOPHILS ABSOLUTE COUNT (BEAKER) 0.03 K/ L 0.01-0.08 (test code = 417) IMMATURE GRANULOCYTES-RELATIVE 0.10 % 0.00-1.00 PERCENT (BEAKER) (test code = 2801) [id number] 04:01:01 Test Item Value Reference Range Interpretation Comments MAGNESIUM (BEAKER) (test code = 2.0 mg/dL 1.6-2.6 627) Insurance Commissioner ID - JORJE [id number] 04:01:01 Test Item Value Reference Range Interpretation Comments PHOSPHORUS (BEAKER) (test code = 2.9 mg/dL 2.3-4.7 604) Insurance Commissioner ID - JORJE GHEPATIC FUNCTION [id number] 04:01:01 Test Item Value Reference Range Interpretation Comments TOTAL PROTEIN (BEAKER) (test code = 5.2 gm/dL 6.0-8.3 L 770) ALBUMIN (BEAKER) (test code = 1145) 2.8 g/dL 3.5-5.0 L BILIRUBIN TOTAL (BEAKER) (test code 0.2 mg/dL 0.2-1.2 = 377) BILIRUBIN DIRECT (BEAKER) (test 0.1 mg/dL 0.1-0.5 code = 706) ALKALINE PHOSPHATASE (BEAKER) (test 82 U/L 40-150 code = 346) AST (SGOT) (BEAKER) (test code = 9 U/L 5-34 353) ALT (SGPT) (BEAKER) (test code = 11 U/L 6-55 347) Insurance Commissioner ID - JORJE GBASIC METABOLIC [id number] 04:01:00 Test Item Value Reference Range Interpretation Comments SODIUM (BEAKER) 139 meq/L 136-145 (test code = 381) POTASSIUM 4.2 meq/L 3.5-5.1 (BEAKER) (test code = 379) CHLORIDE (BEAKER) 107 meq/L 98-107 (test code = 382) CO2 (BEAKER) 27 meq/L 22-29 (test code = 355) BLOOD UREA 10 mg/dL 7-21 NITROGEN (BEAKER) (test code = 354) CREATININE 0.52 mg/dL 0.57-1.25 L (BEAKER) (test code = 358) GLUCOSE RANDOM 95 mg/dL 70-105 (BEAKER) (test code = 652) CALCIUM (BEAKER) 8.3 mg/dL 8.4-10.2 L (test code = 697) EGFR (BEAKER) 112 Interpretatio n of eGFR (test code = mL/min/1.73 values Stage De scription 1092) sq m Result G1 Hollie l or high >=90 G2 Mildly decreased 60-89 G3a Mildl y to moderately 45-5 9 G3b Moderately to s everely 30-44 G4 Severl y decreased 15-29 G5 Kidney failure <15Reported eGF R is based on the CKD-EPI 2020 equation that d oes not use a race coefficientEsti mated GFR is not as accur ate as Creatinine Meghan edwards in predicting glom erular filtration rate . Estimated GFR is not appl icable for dialysis patien ts Insurance Commissioner ID - JORJE GPOCT-GLUCOSE [id number] 00:18:07 Test Item Value Reference Range Interpretation Comments POC-GLUCOSE METER 94 mg/dL 70-110 : TESTED A T [facility] 6720 (BEAKER) (test code = [facility], 1538) [address]: Insurance Commissioner/Techni claudia ID = [id number] for [facility]H [facility] POCT-GLUCOSE [id number] 12:44:38 Test Item Value Reference Range Interpretation Comments POC-GLUCOSE METER 81 mg/dL 70-110 : TESTED A T [facility] 6720 (BEAKER) (test code = [facility], 1538) [address]: Insurance Commissioner/Techni claudia ID = [id number] for Jose Alberto Josephl POCT-GLUCOSE [id number] 09:09:37 Test Item Value Reference Range Interpretation Comments POC-GLUCOSE METER 87 mg/dL 70-110 : TESTED A T [facility] 6720 (BEAKER) (test code = [facility], 1538) [address]: Insurance Commissioner/Techni claudia ID = [id number] for Brook veelz, Sameliajal [id number] 06:44:57 Test Item Value Reference Range Interpretation Comments MAGNESIUM (BEAKER) (test code = 1.7 mg/dL 1.6-2.6 627) Insurance Commissioner ID - JOHAN [id number] 06:44:57 Test Item Value Reference Range Interpretation Comments PHOSPHORUS (BEAKER) (test code = 3.2 mg/dL 2.3-4.7 604) Insurance Commissioner ID - JOHAN MHEPATIC FUNCTION [id number] 06:44:57 Test Item Value Reference Range Interpretation Comments TOTAL PROTEIN (BEAKER) (test code = 4.6 gm/dL 6.0-8.3 L 770) ALBUMIN (BEAKER) (test code = 1145) 2.5 g/dL 3.5-5.0 L BILIRUBIN TOTAL (BEAKER) (test code 0.2 mg/dL 0.2-1.2 = 377) BILIRUBIN DIRECT (BEAKER) (test 0.1 mg/dL 0.1-0.5 code = 706) ALKALINE PHOSPHATASE (BEAKER) (test 72 U/L 40-150 code = 346) AST (SGOT) (BEAKER) (test code = 10 U/L 5-34 353) ALT (SGPT) (BEAKER) (test code = 13 U/L 6-55 347) Insurance Commissioner ID - JOHAN MBASIC METABOLIC [id number] 06:44:56 Test Item Value Reference Range Interpretation Comments SODIUM (BEAKER) 139 meq/L 136-145 (test code = 381) POTASSIUM 3.6 meq/L 3.5-5.1 (BEAKER) (test code = 379) CHLORIDE (BEAKER) 108 meq/L 98-107 H (test code = 382) CO2 (BEAKER) 28 meq/L 22-29 (test code = 355) BLOOD UREA 7 mg/dL 7-21 NITROGEN (BEAKER) (test code = 354) CREATININE 0.53 mg/dL 0.57-1.25 L (BEAKER) (test code = 358) GLUCOSE RANDOM 86 mg/dL 70-105 (BEAKER) (test code = 652) CALCIUM (BEAKER) 8.0 mg/dL 8.4-10.2 L (test code = 697) EGFR (BEAKER) 112 Interpretatio n of eGFR (test code = mL/min/1.73 values Stage De scription 1092) sq m Result G1 Hollie l or high >=90 G2 Mildly decreased 60-89 G3a Mildl y to moderately 45-5 9 G3b Moderately to s everely 30-44 G4 Sever ly decreased 15-29 G5 Kidney failure <15Repo rted eGFR is based on the CKD-EPI 2020 equation t hat does not use a race coefficientEsti mated GFR is not as accur ate as Creatinine Meghan edwards in predicting glom erular filtration rate . Estimated GFR is not appl icable for dialysis patien ts Insurance Commissioner ID - JOHAN MCBC W/PLT COUNT & AUTO [id number] 06:39:38 Test Item Value Reference Range Interpretation Comments WHITE BLOOD CELL COUNT 5.5 K/ L 3.5-10.5 (BEAKER) (test code = 775) RED BLOOD CELL COUNT 2.58 M/ L (BEAKER) (test code = 761) HEMOGLOBIN (BEAKER) 8.4 GM/DL 11.2-15.7 L (test code = 410) HEMATOCRIT (BEAKER) 26.2 % 34.1-44.9 L (test code = 411) MEAN CORPUSCULAR 102 fL 79-95 H Discordant MCV VOLUME (BEAKER) (test result s from code = 753) previous. Clini peggy correlation required. MEAN CORPUSCULAR 32.6 pg 25.6-32.2 H HEMOGLOBIN (BEAKER) (test code = 751) MEAN CORPUSCULAR 32.1 GM/DL 32.2-35.5 L HEMOGLOBIN CONC (BEAKER) (test code = 752) RED CELL DISTRIBUTION 14.6 % 11.7-14.4 H WIDTH (BEAKER) (test code = 412) PLATELET COUNT 325 K/CU MM 150-450 (BEAKER) (test code = 756) MEAN PLATELET VOLUME 10.0 fL 9.4-12.3 (BEAKER) (test code = 754) NUCLEATED RED BLOOD 0 /100 WBC 0-0 CELLS (BEAKER) (test code = 413) NEUTROPHILS RELATIVE 64 % PERCENT (BEAKER) (test code = 429) LYMPHOCYTES RELATIVE 23 % PERCENT (BEAKER) (test code = 430) MONOCYTES RELATIVE 9 % PERCENT (BEAKER) (test code = 431) EOSINOPHILS RELATIVE 4 % PERCENT (BEAKER) (test code = 432) BASOPHILS RELATIVE 0 % PERCENT (BEAKER) (test code = 437) NEUTROPHILS ABSOLUTE 3.52 K/ L 1.56-6.13 COUNT (BEAKER) (test code = 670) LYMPHOCYTES ABSOLUTE 1.25 K/ L 1.18-3.74 COUNT (BEAKER) (test code = 414) MONOCYTES ABSOLUTE 0.50 K/ L 0.24-0.36 H COUNT (BEAKER) (test code = 415) EOSINOPHILS ABSOLUTE 0.21 K/ L 0.04-0.36 COUNT (BEAKER) (test code = 416) BASOPHILS ABSOLUTE 0.01 K/ L 0.01-0.08 COUNT (BEAKER) (test code = 417) IMMATURE 0.20 % 0.00-1.00 GRANULOCYTES-RELATIVE PERCENT (BEAKER) (test code = 2801) POCT-GLUCOSE [id number] 22:01:42 Test Item Value Reference Range Interpretation Comments POC-GLUCOSE METER 84 mg/dL 70-110 : TESTED A T [facility] 6720 (WILLIAN) (test code = [place], 1538) [address]: Insurance Commissioner/Techni claudia ID = [id number] for [facility] MR, ABDOMEN, [id number] 18:15:00Unlisted Reason for Exam - Click Yes and Enter Reason Below->Yes Unlisted Reason for Exam->dilated extra-heaptic biliary ducts seen on CTA\\T\\[facility] : 1970 Sex: FFINAL REPORT MR Abdomen dated 05/04/2022 Comment: Multiplanar T1 and T2- weighted images, respiratory triggered and breath-hold MRCP sequences were obtained. 3-D reconstruction of the abdomenwas performed for better evaluation of the biliary tree. There is trace left pleural effusion and small to moderate right pleural effusion. Subsegmental atelectasis is seen in both lower lobes. Gallbladder is surgically absent. No fluid collection is seen in the gallbladder fossa. MRCP demonstrates dilatation of the intra and extra hepatic biliary ducts. No filling defect is seen in the biliary ductsto suggest choledocholithiasis. Common bile duct measures approximately 13 mm in size. Pancreatic duct is normal in caliber. Liver is normal in size without focal abnormality. Liver is suboptimally evaluated on the MRCP sequences. Spleen is normal in size. Pancreas and adrenals are unremarkable. Both kidneys are normal in size. There is soft tissue stranding involving the right Gerota's fascia and right lateroconal fascia. Subcutaneous is edema is seen in the bilateral flank. Impression:1. Biliary dilatation without choledocholithiasis.2. Bilateral pleural effusion.3. Soft tissue stranding involving the right Gerota's fascia and right lateroconal fascia.4. Subcutaneous is edema in bilateral flank.Signed: Helen Lara Verified Date/Time: 05/04/2022 18:15:35 Reading Location: [facility] C013Y CT Body Reading Room POCT-GLUCOSE [id number] 16:21:02 Test Item Value Reference Range Interpretation Comments POC-GLUCOSE METER 82 mg/dL 70-110 : Notified RN/MD: TESTED (BEAKER) (test code = AT [facility] [address] [facility] 1538) [facility], [facility] 30: Insurance Commissioner/Techni claudia ID = [id number] for Gilb reath (contract), Sha ntika BLOOD [id number] 12:06:04 Test Item Value Reference Range Interpretation Comments CULTURE (BEAKER) (test No growth in 5 days code = 1095) The specimen volume collected for this blood culture was below the optimum (10 mL per bottle or 20 mL total). Use of lower volumes may adversely affect recovery and/or detection times of some organisms.BLOOD [id number] 12:06:03 Test Item Value Reference Range Interpretation Comments CULTURE (BEAKER) (test No growth in 5 days code = 1095) POCT-GLUCOSE [id number] 11:44:04 Test Item Value Reference Range Interpretation Comments POC-GLUCOSE METER 77 mg/dL 70-110 : Notified RN/MD: TESTED (BEAKER) (test code = AT [facility] [address] 1538) [facility], [facility] 30: Insurance Commissioner/Techni claudia ID = [id number] for Gilb reath (contract), Sha ntika POCT-GLUCOSE [id number] 07:17:47 Test Item Value Reference Range Interpretation Comments POC-GLUCOSE METER 87 mg/dL 70-110 : Notified RN/MD: TESTED (BEAKER) (test code = AT [facility] [address] [facility], [facility] 30: Insurance Commissioner/Techni claudia ID = [id number] for Gilb reath (contract), Marco lala [id number] 06:13:01 Test Item Value Reference Range Interpretation Comments PHOSPHORUS (BEAKER) (test code = 3.3 mg/dL 2.3-4.7 604) Insurance Commissioner ID - JOHAN MHEPATIC FUNCTION [id number] 06:13:01 Test Item Value Reference Range Interpretation Comments TOTAL PROTEIN (BEAKER) (test code = 4.4 gm/dL 6.0-8.3 L 770) ALBUMIN (BEAKER) (test code = 1145) 2.4 g/dL 3.5-5.0 L BILIRUBIN TOTAL (BEAKER) (test code 0.3 mg/dL 0.2-1.2 = 377) BILIRUBIN DIRECT (BEAKER) (test 0.1 mg/dL 0.1-0.5 code = 706) ALKALINE PHOSPHATASE (BEAKER) (test 74 U/L 40-150 code = 346) AST (SGOT) (BEAKER) (test code = 16 U/L 5-34 353) ALT (SGPT) (BEAKER) (test code = 15 U/L 6-55 347) Insurance Commissioner ID - JOHAN MBASIC METABOLIC [id number] 06:13:00 Test Item Value Reference Range Interpretation Comments SODIUM (BEAKER) 141 meq/L 136-145 (test code = 381) POTASSIUM 3.6 meq/L 3.5-5.1 (BEAKER) (test code = 379) CHLORIDE (BEAKER) 110 meq/L 98-107 H (test code = 382) CO2 (BEAKER) 27 meq/L 22-29 (test code = 355) BLOOD UREA 5 mg/dL 7-21 L NITROGEN (BEAKER) (test code = 354) CREATININE 0.53 mg/dL 0.57-1.25 L (BEAKER) (test code = 358) GLUCOSE RANDOM 85 mg/dL 70-105 (BEAKER) (test code = 652) CALCIUM (BEAKER) 8.0 mg/dL 8.4-10.2 L (test code = 697) EGFR (BEAKER) 112 Interpretatio n of eGFR (test code = mL/min/1.73 values Stage De scription 1092) sq m Result G1 Hollie l or high >=90 G2 Mildly decreased 60-89 G3a Mildl y to moderately 45-5 9 G3b Moderately to s everely 30-44 G4 Severl y decreased 15-29 G5 Kidney failure <15Reported eGF R is based on the CKD-EPI 2020 equation that d oes not use a race coefficientEsti mated GFR is not as accur ate as Creatinine Meghan edwards in predicting glom erular filtration rate . Estimated GFR is not appl icable for dialysis patien ts Insurance Commissioner ID - JOHAN [id number] 06:13:00 Test Item Value Reference Range Interpretation Comments MAGNESIUM (BEAKER) (test code = 1.7 mg/dL 1.6-2.6 627) Insurance Commissioner ID - JOHAN MCBC W/PLT COUNT & AUTO [id number] 06:00:56 Test Item Value Reference Range Interpretation Comments WHITE BLOOD CELL COUNT (BEAKER) 5.6 K/ L 3.5-10.5 (test code = 775) RED BLOOD CELL COUNT (BEAKER) 2.47 M/ L (test code = 761) HEMOGLOBIN (BEAKER) (test code = 8.1 GM/DL 11.2-15.7 L 410) HEMATOCRIT (BEAKER) (test code = 24.0 % 34.1-44.9 L 411) MEAN CORPUSCULAR VOLUME (BEAKER) 97 fL 79-95 H (test code = 753) MEAN CORPUSCULAR HEMOGLOBIN 32.8 pg 25.6-32.2 H (BEAKER) (test code = 751) MEAN CORPUSCULAR HEMOGLOBIN CONC 33.8 GM/DL 32.2-35.5 (BEAKER) (test code = 752) RED CELL DISTRIBUTION WIDTH 14.7 % 11.7-14.4 H (BEAKER) (test code = 412) PLATELET COUNT (BEAKER) (test 314 K/CU MM 150-450 code = 756) MEAN PLATELET VOLUME (BEAKER) 9.7 fL 9.4-12.3 (test code = 754) NUCLEATED RED BLOOD CELLS 0 /100 WBC 0-0 (BEAKER) (test code = 413) NEUTROPHILS RELATIVE PERCENT 64 % (BEAKER) (test code = 429) LYMPHOCYTES RELATIVE PERCENT 23 % (BEAKER) (test code = 430) MONOCYTES RELATIVE PERCENT 9 % (BEAKER) (test code = 431) EOSINOPHILS RELATIVE PERCENT 4 % (BEAKER) (test code = 432) BASOPHILS RELATIVE PERCENT 0 % (BEAKER) (test code = 437) NEUTROPHILS ABSOLUTE COUNT 3.61 K/ L 1.56-6.13 (BEAKER) (test code = 670) LYMPHOCYTES ABSOLUTE COUNT 1.28 K/ L 1.18-3.74 (BEAKER) (test code = 414) MONOCYTES ABSOLUTE COUNT (BEAKER) 0.48 K/ L 0.24-0.36 H (test code = 415) EOSINOPHILS ABSOLUTE COUNT 0.21 K/ L 0.04-0.36 (BEAKER) (test code = 416) BASOPHILS ABSOLUTE COUNT (BEAKER) 0.02 K/ L 0.01-0.08 (test code = 417) IMMATURE GRANULOCYTES-RELATIVE 0.20 % 0.00-1.00 PERCENT (BEAKER) (test code = 2801) POCT-GLUCOSE [id number] 04:55:25 Test Item Value Reference Range Interpretation Comments POC-GLUCOSE METER 87 mg/dL 70-110 : TESTED A T [facility] 6720 (BEAKER) (test code = [facility], 153) 46472: Insurance Commissioner/Techni claudia ID = [id number] for Aretha Mckinnon POCT-GLUCOSE [id number] 23:19:20 Test Item Value Reference Range Interpretation Comments POC-GLUCOSE METER 82 mg/dL 70-110 : TESTED A T [facility] 6720 (BEAKER) (test code = [facility], 153) 03966: Insurance Commissioner/Techni claudia ID = [id number] for Cornelius Argueta HEMOGLOBIN AND [id number] 17:06:46 Test Item Value Reference Range Interpretation Comments HEMOGLOBIN (BEAKER) (test code = 8.2 GM/DL 11.2-15.7 L 410) HEMATOCRIT (BEAKER) (test code = 25.1 % 34.1-44.9 L 411) Insurance Commissioner ID - [id number]-GLUCOSE [id number] 16:20:16 Test Item Value Reference Range Interpretation Comments POC-GLUCOSE METER 115 mg/dL 70-110 H : TESTED A T [facility] 6720 (BEAKER) (test code = [facility], 153) 71596: Insurance Commissioner/Techni claudia ID = [id number] for Sasha Levy RAD, CHEST, 1 VIEW, NON [id number] 15:15:00Reason for exam:->PICC LINE PLACEMENTShould this be performed at the bedside?->Yes [facility] 1970 Sex: FFINAL REPORT RAD, CHEST, 1 VIEW, NON DEPT INDICATION: PICC LINE PLACEMENT COMPARISON: 04/29/2022 FINDINGS: Portable frontal view of the chest. IMPRESSION: Support Lines: PICC tip overlies the atriocaval junction Lungs and pleura: Bibasilar interstitial thickening concerning for atypical infection and/or atelectasis No significant pneumothorax. Heart and mediastinum: Normal contours. Additional findings: None. Signed: Sandra Pablo Verified Date/Time: 05/03/2022 15:15:19 ReadingLocation: [address] Reading Room POCT-GLUCOSE [id number] 13:02:10 Test Item Value Reference Range Interpretation Comments POC-GLUCOSE METER 90 mg/dL 70-110 : TESTED A T [facility] 6720 (InGameNow) (test code = [facility], 1538) 06051: Insurance Commissioner/Techni claudia ID = [id number] for Brook velez Sameliaromulo POCT-GLUCOSE [id number] 08:40:57 Test Item Value Reference Range Interpretation Comments POC-GLUCOSE METER 134 mg/dL 70-110 H : TESTED A T [facility] 6720 ([employer]) (test code = JACOB Castellanos [facility], 1538) 31136: Insurance Commissioner/Techni claudia ID = [id number] for Sasha Levy [id number] 08:37:58 Test Item Value Reference Range Interpretation Comments TRIGLYCERIDES (BEAKER) (test code = 36 mg/dL 540) TRIGLYCERIDE REFERENCE RANGELow Risk <150Borderline Risk 150-199High Risk 200-499Very High Risk >=500Operator ID - JOHAN MBASIC METABOLIC PANEL 2022-05-03 07:12:38 Test Item Value Reference Range Interpretation Comments SODIUM (BEAKER) 141 meq/L 136-145 (test code = 381) POTASSIUM 3.8 meq/L 3.5-5.1 (BEAKER) (test code = 379) CHLORIDE (BEAKER) 110 meq/L 98-107 H (test code = 382) CO2 (BEAKER) 24 meq/L 22-29 (test code = 355) BLOOD UREA 5 mg/dL 7-21 L NITROGEN (BEAKER) (test code = 354) CREATININE 0.57 mg/dL 0.57-1.25 (BEAKER) (test code = 358) GLUCOSE RANDOM 78 mg/dL 70-105 (BEAKER) (test code = 652) CALCIUM (BEAKER) 7.8 mg/dL 8.4-10.2 L (test code = 697) EGFR (BEAKER) 110 Interpretatio n of eGFR (test code = mL/min/1.73 values Stage De scription 1092) sq m Result G1 Hollie l or high >=90 G2 Mildly decreased 60-89 G3a Mildl y to moderately 45-5 9 G3b Moderately to s everely 30-44 G4 Severl y decreased 15-29 G5 Kidne y failure <15Reported eGF R is based on the CKD-EPI 2020 equation that d oes not use a race coefficientEsti mated GFR is not as accur ate as Creatinine Meghan edwards in predicting glom erular filtration rate . Estimated GFR is not appl icable for dialysis patien ts Insurance Commissioner ID - JOHAN [id number] 07:05:55 Test Item Value Reference Range Interpretation Comments MAGNESIUM (BEAKER) (test code = 1.9 mg/dL 1.6-2.6 627) Insurance Commissioner ID - JOHAN [id number] 07:05:55 Test Item Value Reference Range Interpretation Comments PHOSPHORUS (BEAKER) (test code = 3.4 mg/dL 2.3-4.7 604) Insurance Commissioner ID - JOHAN EPATIC FUNCTION [id number] 07:05:55 Test Item Value Reference Range Interpretation Comments TOTAL PROTEIN (BEAKER) (test code = 4.5 gm/dL 6.0-8.3 L 770) ALBUMIN (BEAKER) (test code = 1145) 2.5 g/dL 3.5-5.0 L BILIRUBIN TOTAL (BEAKER) (test code 0.2 mg/dL 0.2-1.2 = 377) BILIRUBIN DIRECT (BEAKER) (test 0.1 mg/dL 0.1-0.5 code = 706) ALKALINE PHOSPHATASE (BEAKER) (test 77 U/L 40-150 code = 346) AST (SGOT) (BEAKER) (test code = 22 U/L 5-34 353) ALT (SGPT) (BEAKER) (test code = 22 U/L 6-55 347) Insurance Commissioner ID - JOHAN MPrepare [id number] 07:05:00 Test Item Value Reference Range Interpretation Comments Unit ABO (test code = O Pos 3767429) UNIT NUMBER (test code = [id number] 934-0) Status (test code = 2723621) WORK IN PROGRESS Blood Bank Product (test RED BLOOD CELLS code = 2263) PRODUCT CODE (test code = M5688I32 933-2) CROSSMATCH (test code = COMPATIBLE 2264) [facility] W/PLT COUNT & AUTO [id number] 06:17:55 Test Item Value Reference Range Interpretation Comments WHITE BLOOD CELL COUNT (BEAKER) 7.4 K/ L 3.5-10.5 (test code = 775) RED BLOOD CELL COUNT (BEAKER) 2.65 M/ L (test code = 761) HEMOGLOBIN (BEAKER) (test code = 8.8 GM/DL 11.2-15.7 L 410) HEMATOCRIT (BEAKER) (test code = 26.5 % 34.1-44.9 L 411) MEAN CORPUSCULAR VOLUME (BEAKER) 100 fL 79-95 H (test code = 753) MEAN CORPUSCULAR HEMOGLOBIN 33.2 pg 25.6-32.2 H (BEAKER) (test code = 751) MEAN CORPUSCULAR HEMOGLOBIN CONC 33.2 GM/DL 32.2-35.5 (BEAKER) (test code = 752) RED CELL DISTRIBUTION WIDTH 14.8 % 11.7-14.4 H (BEAKER) (test code = 412) PLATELET COUNT (BEAKER) (test 352 K/CU MM 150-450 code = 756) MEAN PLATELET VOLUME (BEAKER) 10.0 fL 9.4-12.3 (test code = 754) NUCLEATED RED BLOOD CELLS 0 /100 WBC 0-0 (BEAKER) (test code = 413) NEUTROPHILS RELATIVE PERCENT 72 % (BEAKER) (test code = 429) LYMPHOCYTES RELATIVE PERCENT 17 % (BEAKER) (test code = 430) MONOCYTES RELATIVE PERCENT 8 % (BEAKER) (test code = 431) EOSINOPHILS RELATIVE PERCENT 3 % (BEAKER) (test code = 432) BASOPHILS RELATIVE PERCENT 0 % (BEAKER) (test code = 437) NEUTROPHILS ABSOLUTE COUNT 5.28 K/ L 1.56-6.13 (BEAKER) (test code = 670) LYMPHOCYTES ABSOLUTE COUNT 1.24 K/ L 1.18-3.74 (BEAKER) (test code = 414) MONOCYTES ABSOLUTE COUNT (BEAKER) 0.59 K/ L 0.24-0.36 H (test code = 415) EOSINOPHILS ABSOLUTE COUNT 0.22 K/ L 0.04-0.36 (BEAKER) (test code = 416) BASOPHILS ABSOLUTE COUNT (BEAKER) 0.02 K/ L 0.01-0.08 (test code = 417) IMMATURE GRANULOCYTES-RELATIVE 0.10 % 0.00-1.00 PERCENT (BEAKER) (test code = 2801) POCT-GLUCOSE [id number] 04:08:47 Test Item Value Reference Range Interpretation Comments POC-GLUCOSE METER 78 mg/dL 70-110 : TESTED A T [facility] 6720 (BEAKER) (test code = [facility] [place], 1538) 85208: Insurance Commissioner/Techni claudia ID = [id number] for Aretha Mckinnon POCT-GLUCOSE [id number] 20:15:59 Test Item Value Reference Range Interpretation Comments POC-GLUCOSE METER 91 mg/dL 70-110 : TESTED A T [facility] 6720 (BEAKER) (test code = [place] [facility], 1538) 63655: Insurance Commissioner/Techni claudia ID = [id number] for Deepa arizarickeyCornelius POCT-GLUCOSE [id number] 16:31:48 Test Item Value Reference Range Interpretation Comments POC-GLUCOSE METER 154 mg/dL 70-110 H : TESTED A T [facility] 6720 (BEAKER) (test code = [place] J[facility], 1538) 77722: Insurance Commissioner/Techni claudia ID = [id number] for Ebony Curiel 2D Echo W/Doppler(CW/PW/Color)2022 13:46:07Ejection FractionSLE ECHO [facility]LAB [facility] [id number] 11:26:01 Test Item Value Reference Range Interpretation Comments POC-GLUCOSE METER 121 mg/dL 70-110 H : TESTED A T [facility] (BEAKER) (test code [facility], = 1538) 69545: Insurance Commissioner/Techni claudia ID = [id number] for Deepa dionte Tom, Gene sis [id number] 11:03:37 Test Item Value Reference Range Interpretation Comments RPR SCREEN (BEAKER) (test code = Nonreactive Nonreactive 420) HEPATIC FUNCTION [id number] 10:46:08 Test Item Value Reference Range Interpretation Comments TOTAL PROTEIN (BEAKER) 4.5 gm/dL 6.0-8.3 L Speci men slightly (test code = 770) hemolyzed ALBUMIN (BEAKER) (test 2.5 g/dL 3.5-5.0 L Speci men slightly code = 1145) hemolyzed BILIRUBIN TOTAL 0.3 mg/dL 0.2-1.2 Specimen sli ghtly (BEAKER) (test code = hemoly zed 377) BILIRUBIN DIRECT 0.1 mg/dL 0.1-0.5 Specimen sl ightly (BEAKER) (test code = hemoly zed 706) ALKALINE PHOSPHATASE 72 U/L 40-150 (BEAKER) (test code = 346) AST (SGOT) (BEAKER) 36 U/L 5-34 H Specimen slightly (test code = 353) hemolyzed ALT (SGPT) (BEAKER) 15 U/L 6-55 Specimen slightly (test code = 347) hemolyzed Insurance Commissioner ID - MITCHPOCT-GLUCOSE [id number] 07:31:28 Test Item Value Reference Range Interpretation Comments POC-GLUCOSE METER 98 mg/dL 70-110 : TESTED A T [facility] 6720 (BEAKER) (test code = [facility] [place], 1538) 94074: Insurance Commissioner/Techni claudia ID = [id number] for Rodr dionte Santos, Gene sis POCT-GLUCOSE [id number] 04:23:00 Test Item Value Reference Range Interpretation Comments POC-GLUCOSE METER 117 mg/dL 70-110 H : TESTED A T [facility] 6720 (BEAKER) (test code = [facility], 1538) 33553: Insurance Commissioner/Techni claudia ID = [id number] for KELLY PEDERSEN VANCOMYCIN LEVEL, [id number] 03:37:44 Test Item Value Reference Range Interpretation Comments VANCOMYCIN TROUGH (BEAKER) (test 15.7 ug/mL 10.0-20.0 code = 522) Insurance Commissioner ID - JOHAN [id number] 01:43:26 Test Item Value Reference Range Interpretation Comments PHOSPHORUS (BEAKER) (test code = 2.7 mg/dL 2.3-4.7 604) Insurance Commissioner ID - JOHAN MBASIC METABOLIC [id number] 01:43:25 Test Item Value Reference Range Interpretation Comments SODIUM (BEAKER) 139 meq/L 136-145 (test code = 381) POTASSIUM 3.9 meq/L 3.5-5.1 (BEAKER) (test code = 379) CHLORIDE (BEAKER) 111 meq/L 98-107 H (test code = 382) CO2 (BEAKER) 24 meq/L 22-29 (test code = 355) BLOOD UREA 3 mg/dL 7-21 L NITROGEN (BEAKER) (test code = 354) CREATININE 0.49 mg/dL 0.57-1.25 L (BEAKER) (test code = 358) GLUCOSE RANDOM 116 mg/dL 70-105 H (BEAKER) (test code = 652) CALCIUM (BEAKER) 8.0 mg/dL 8.4-10.2 L (test code = 697) EGFR (BEAKER) 114 Interpretatio n of eGFR (test code = mL/min/1.73 values Stage De scription 1092) sq m Result G1 Hollie l or high >=90 G2 Mildly decreased 60-89 G3a Mildl y to moderately 45-5 9 G3b Moderately to s everely 30-44 G4 Severl y decreased 15-29 G5 Kidney failure <15Reported eGF R is based on the CKD-EPI 2020 equation that d oes not use a race coefficientEsti mated GFR is not as accur ate as Creatinine Meghan grace in predicting glom erular filtration rate . Estimated GFR is not appl icable for dialysis patien ts Insurance Commissioner ID - JOHAN [id number] 01:43:25 Test Item Value Reference Range Interpretation Comments MAGNESIUM (BEAKER) (test code = 1.7 mg/dL 1.6-2.6 627) Insurance Commissioner ID - JOHAN [facility] W/PLT COUNT & AUTO [id number] 01:24:32 Test Item Value Reference Range Interpretation Comments WHITE BLOOD CELL COUNT (BEAKER) 6.6 K/ L 3.5-10.5 (test code = 775) RED BLOOD CELL COUNT (BEAKER) 2.40 M/ L (test code = 761) HEMOGLOBIN (BEAKER) (test code = 7.8 GM/DL 11.2-15.7 L 410) HEMATOCRIT (BEAKER) (test code = 23.6 % 34.1-44.9 L 411) MEAN CORPUSCULAR VOLUME (BEAKER) 98 fL 79-95 H (test code = 753) MEAN CORPUSCULAR HEMOGLOBIN 32.5 pg 25.6-32.2 H (BEAKER) (test code = 751) MEAN CORPUSCULAR HEMOGLOBIN CONC 33.1 GM/DL 32.2-35.5 (BEAKER) (test code = 752) RED CELL DISTRIBUTION WIDTH 14.6 % 11.7-14.4 H (BEAKER) (test code = 412) PLATELET COUNT (BEAKER) (test 321 K/CU MM 150-450 code = 756) MEAN PLATELET VOLUME (BEAKER) 9.6 fL 9.4-12.3 (test code = 754) NUCLEATED RED BLOOD CELLS 0 /100 WBC 0-0 (BEAKER) (test code = 413) NEUTROPHILS RELATIVE PERCENT 65 % (BEAKER) (test code = 429) LYMPHOCYTES RELATIVE PERCENT 25 % (BEAKER) (test code = 430) MONOCYTES RELATIVE PERCENT 8 % (BEAKER) (test code = 431) EOSINOPHILS RELATIVE PERCENT 2 % (BEAKER) (test code = 432) BASOPHILS RELATIVE PERCENT 0 % (BEAKER) (test code = 437) NEUTROPHILS ABSOLUTE COUNT 4.34 K/ L 1.56-6.13 (BEAKER) (test code = 670) LYMPHOCYTES ABSOLUTE COUNT 1.62 K/ L 1.18-3.74 (BEAKER) (test code = 414) MONOCYTES ABSOLUTE COUNT (BEAKER) 0.50 K/ L 0.24-0.36 H (test code = 415) EOSINOPHILS ABSOLUTE COUNT 0.14 K/ L 0.04-0.36 (BEAKER) (test code = 416) BASOPHILS ABSOLUTE COUNT (BEAKER) 0.01 K/ L 0.01-0.08 (test code = 417) IMMATURE GRANULOCYTES-RELATIVE 0.20 % 0.00-1.00 PERCENT (BEAKER) (test code = 2801) POCT-GLUCOSE [id number] 23:53:12 Test Item Value Reference Range Interpretation Comments POC-GLUCOSE METER 116 mg/dL 70-110 H : TESTED A T [facility] 6720 (BEAKER) (test code = [facility], 1538) 77680: Insurance Commissioner/Techni claudia ID = [id number] for MS IBI, MNCEDISI POCT-GLUCOSE [id number] 20:28:36 Test Item Value Reference Range Interpretation Comments POC-GLUCOSE METER 77 mg/dL 70-110 : TESTED A T [facility] 6720 (BEAKER) (test code = [facility], 1538) 51754: Insurance Commissioner/Techni claudia ID = [id number] for MSIB I, MNCEDISI CT, [id number] 18:04:00Unlisted Reason for Exam - Click Yes and Enter Reason Below->YesUnlisted Reason for Exam->gastric perforation; h/o Dagmar en Y gastric bypass surgery, concern for perforated ulcerIs this for enterog alexei?->NoWill this procedure require oral contrast?->No [facility] : 1970 Sex: FFINAL REPORT CT of the abdomen and pelvis, with contrast Clinical History: Unlisted Reason for Examgastric perforation; h/o Dagmar en Y gastric bypass surgery, concern for perforated ulcer Technique: CT of the abdomen and pelvis is performed with intravenous contrast administration. This examwas performed according to our departmental dose optimization program which includes automated exposure control, adjustment of the mA and/or kV according to patient's size and/or use of iterative reconstructive technique. Comparison Film: CT dated April 28, 2022, performed at an outside institution, and upper GI study dated April 29, 2022 Discussion: There are small bilateral pleural effusions.No liver lesion is identified. It is enlarged and measures 20.7 cm sagittally. Status post cholecystectomy. Enlargement of the extrahepatic bile duct measuring up to 13 mm is nonspecific. No radiopaquestone is identified. Spleen, pancreas, and adrenal glands are normal. Kidneys demonstrate no hydronep hrosis, mass or radiopaque stone. Patient is status post gastric bypass. The outpouching seen on upper GI study likely corresponds to a patulous portion of the jejunum immediately adjacent to the anastomosis; portion of jejunum at the anastomosis thick walled. No abscess or fistula is identified. The excluded segment of the stomach is fluid-filled, otherwise unremarkable. No bowel obstruction. There is colonic diverticulosis. No pericecal inflammatory change. In the pelvis, bladder is decompressed with Zacarias catheter. Uterus is absent. No adnexal mass. There is anasarca. Trace ascites. No free air.No lymphadenopathy. No abscess or fistula is identified. Bony structures demonstrate degenerative changes. IMPRESSION: Status post gastric bypass. Outpouching seen on the upper GI study likely represents a patulous portion of jejunum immediately adjacent to the anastomosis. Additionally, there is wallthickening of the jejunum at the anastomosis, no evidence of abscess or fistula. Hepatomegaly. Status post cholecystectomy. Nonspecific enlargement of the extra hepatic bile duct could be due to reservoir effect, but if there is clinical concern for biliary obstruction, suggest correlation with ERCP or MRCP. Colonic diverticulosis. Small bilateral pleural effusions. Trace ascites. Anasarca. Signed: Regan Anne MDReport Verified Date/Time: 05/01/2022 18:04:32 Reading Location: [address] Ortho ConsultReading Room POCT-GLUCOSE [id number] 17:44:18 Test Item Value Reference Range Interpretation Comments POC-GLUCOSE METER 105 mg/dL 70-110 : Notified RN/MD: ([facility]) (test code = TESTED AT [place] [address] 0918) [facility], [address]: Insurance Commissioner/Techni claudia ID = [id number] for TONG VASQUEZ, CHRIS HEMOGLOBIN AND [id number] 17:06:56 Test Item Value Reference Range Interpretation Comments HEMOGLOBIN (BEAKER) (test code = 8.0 GM/DL 11.2-15.7 L 410) HEMATOCRIT ([facility]) (test code = 23.7 % 34.1-44.9 L 411) Insurance Commissioner ID - [id number] T4 IF [id number] 12:06:09 Test Item Value Reference Range Interpretation Comments THYROID STIMULATING HORMONE 0.453 uIU/mL 0.350-4.940 (AKER) (test code = 772) Insurance Commissioner ID - MITCHPOCT-GLUCOSE [id number] 11:41:14 Test Item Value Reference Range Interpretation Comments POC-GLUCOSE METER 111 mg/dL 70-110 H : TESTED A T [facility] 6720 ([facility]) (test [facility] = [facility], 1538) [address]: Insurance Commissioner/Techni claudia ID = [id number] for Tanesha Davidrosieade CBC W/PLT COUNT & AUTO [id number] 11:20:57 Test Item Value Reference Range Interpretation Comments WHITE BLOOD CELL COUNT ([facility]) 6.5 K/ L 3.5-10.5 (test code = 775) RED BLOOD CELL COUNT (AKER) 2.52 M/ L (test code = 761) HEMOGLOBIN (BEAKER) (test code = 8.3 GM/DL 11.2-15.7 L 410) HEMATOCRIT (BEAKER) (test code = 24.2 % 34.1-44.9 L 411) MEAN CORPUSCULAR VOLUME (BEAKER) 96 fL 79-95 H (test code = 753) MEAN CORPUSCULAR HEMOGLOBIN 32.9 pg 25.6-32.2 H (BEAKER) (test code = 751) MEAN CORPUSCULAR HEMOGLOBIN CONC 34.3 GM/DL 32.2-35.5 (BEAKER) (test code = 752) RED CELL DISTRIBUTION WIDTH 14.5 % 11.7-14.4 H (BEAKER) (test code = 412) PLATELET COUNT (BEAKER) (test 289 K/CU MM 150-450 code = 756) MEAN PLATELET VOLUME (BEAKER) 9.7 fL 9.4-12.3 (test code = 754) NUCLEATED RED BLOOD CELLS 0 /100 WBC 0-0 (BEAKER) (test code = 413) NEUTROPHILS RELATIVE PERCENT 71 % (BEAKER) (test code = 429) LYMPHOCYTES RELATIVE PERCENT 21 % (BEAKER) (test code = 430) MONOCYTES RELATIVE PERCENT 6 % (BEAKER) (test code = 431) EOSINOPHILS RELATIVE PERCENT 2 % (BEAKER) (test code = 432) BASOPHILS RELATIVE PERCENT 0 % (BEAKER) (test code = 437) NEUTROPHILS ABSOLUTE COUNT 4.60 K/ L 1.56-6.13 (BEAKER) (test code = 670) LYMPHOCYTES ABSOLUTE COUNT 1.37 K/ L 1.18-3.74 (BEAKER) (test code = 414) MONOCYTES ABSOLUTE COUNT (BEAKER) 0.40 K/ L 0.24-0.36 H (test code = 415) EOSINOPHILS ABSOLUTE COUNT 0.12 K/ L 0.04-0.36 (BEAKER) (test code = 416) BASOPHILS ABSOLUTE COUNT (BEAKER) 0.01 K/ L 0.01-0.08 (test code = 417) IMMATURE GRANULOCYTES-RELATIVE 0.20 % 0.00-1.00 PERCENT (BEAKER) (test code = 2801) CALCIUM, [id number] 10:52:54 Test Item Value Reference Range Interpretation Comments CALCIUM IONIZED (BEAKER) (test 1.13 mmol/L 1.12-1.27 code = 698) PH, BLOOD (BEAKER) (test code = 7.36 1810) BASIC METABOLIC [id number] 10:50:15 Test Item Value Reference Range Interpretation Comments SODIUM (BEAKER) 138 meq/L 136-145 (test code = 381) POTASSIUM 3.6 meq/L 3.5-5.1 (BEAKER) (test code = 379) CHLORIDE (BEAKER) 109 meq/L 98-107 H (test code = 382) CO2 (BEAKER) 23 meq/L 22-29 (test code = 355) BLOOD UREA 6 mg/dL 7-21 L NITROGEN (BEAKER) (test code = 354) CREATININE 0.55 mg/dL 0.57-1.25 L (BEAKER) (test code = 358) GLUCOSE RANDOM 188 mg/dL 70-105 H (BEAKER) (test code = 652) CALCIUM (BEAKER) 7.9 mg/dL 8.4-10.2 L (test code = 697) EGFR (BEAKER) 112 Interpretatio n of eGFR (test code = mL/min/1.73 values Stage D escription 1092) sq m Result G1 Hollie l or high >=90 G2 Mildly decreased 60-89 G3a Mildl y to moderately 45-5 9 G3b Moderately to s everely 30-44 G4 Severl y decreased 15-29 G5 Kidney failure <15Reported eGF R is based on the CKD-EPI 2020 equation that d oes not use a race coefficientEsti mated GFR is not as accur ate as Creatinine Meghan edwards in predicting glom erular filtration rate . Estimated GFR is not appl icable for dialysis patien ts Insurance Commissioner ID - PIAYA EPATIC FUNCTION [id number] 10:45:33 Test Item Value Reference Range Interpretation Comments TOTAL PROTEIN (BEAKER) (test code = 4.8 gm/dL 6.0-8.3 L 770) ALBUMIN (BEAKER) (test code = 1145) 2.7 g/dL 3.5-5.0 L BILIRUBIN TOTAL (BEAKER) (test code 0.3 mg/dL 0.2-1.2 = 377) BILIRUBIN DIRECT (BEAKER) (test 0.1 mg/dL 0.1-0.5 code = 706) ALKALINE PHOSPHATASE (BEAKER) (test 77 U/L 40-150 code = 346) AST (SGOT) (BEAKER) (test code = 13 U/L 5-34 353) ALT (SGPT) (BEAKER) (test code = 15 U/L 6-55 347) Insurance Commissioner ID Elizabeth SHARMA [id number] 10:45:32 Test Item Value Reference Range Interpretation Comments MAGNESIUM (BEAKER) (test code = 2.0 mg/dL 1.6-2.6 627) Insurance Commissioner ID - ZACHARY LPOCT-GLUCOSE [id number] 10:02:36 Test Item Value Reference Range Interpretation Comments POC-GLUCOSE METER 69 mg/dL 70-110 L : TESTED A T [facility] 6720 (BEAKER) (test code = [facility], 1538) 98[address]: Insurance Commissioner/Techni claudia ID = [id number] for Matt Espinoza LACTIC ACID, [id number] 09:03:13 Test Item Value Reference Range Interpretation Comments LACTATE BLOOD VENOUS (2) (BEAKER) 1.74 mmol/L 0.50-2.20 (test code = 2872) Insurance Commissioner ID - ZACHARY LPOCT-GLUCOSE [id number] 06:26:37 Test Item Value Reference Range Interpretation Comments POC-GLUCOSE METER 71 mg/dL 70-110 : TESTED A T [facility] 6720 (BEAKER) (test code = [facility], 1538) 58737: Insurance Commissioner/Techni claudia ID = [id number] for Serr ano, Odalis BASIC METABOLIC [id number] 03:23:29 Test Item Value Reference Range Interpretation Comments SODIUM (BEAKER) 136 meq/L 136-145 (test code = 381) POTASSIUM 3.6 meq/L 3.5-5.1 (BEAKER) (test code = 379) CHLORIDE (BEAKER) 110 meq/L 98-107 H (test code = 382) CO2 (BEAKER) 21 meq/L 22-29 L (test code = 355) BLOOD UREA 7 mg/dL 7-21 NITROGEN (BEAKER) (test code = 354) CREATININE 0.51 mg/dL 0.57-1.25 L (BEAKER) (test code = 358) GLUCOSE RANDOM 87 mg/dL 70-105 (BEAKER) (test code = 652) CALCIUM (BEAKER) 7.8 mg/dL 8.4-10.2 L (test code = 697) EGFR (BEAKER) 114 Interpretati on of eGFR (test code = mL/min/1.73 values Stage De scription 1092) sq m Result G1 Hollie l or high >=90 G2 Mildly decreased 60-89 G3a Mildl y to moderately 45-5 9 G3b Moderately to s everely 30-44 G4 Severl y decreased 15-29 G5 Kidney failure <15Reported eGF R is based on the CKD-EPI 2020 equation that d oes not use a race coefficientEsti mated GFR is not as accur ate as Creatinine Meghan grace in predicting glom erular filtration rate . Estimated GFR is not appl icable for dialysis patien ts Insurance Commissioner ID - ZACHARY [id number] 03:12:52 Test Item Value Reference Range Interpretation Comments PHOSPHORUS (BEAKER) (test code = 2.8 mg/dL 2.3-4.7 604) Insurance Commissioner ID - ZACHARY [id number] 03:12:51 Test Item Value Reference Range Interpretation Comments MAGNESIUM (BEAKER) (test code = 2.4 mg/dL 1.6-2.6 627) Insurance Commissioner ID - ZACHARY LVANCOMYCIN LEVEL, [id number] 02:58:05 Test Item Value Reference Range Interpretation Comments VANCOMYCIN TROUGH (BEAKER) (test 6.5 ug/mL 10.0-20.0 L code = 522) Insurance Commissioner ID - ZACHARY LCBC W/PLT COUNT & AUTO [id number] 02:38:48 Test Item Value Reference Range Interpretation Comments WHITE BLOOD CELL COUNT (BEAKER) 7.6 K/ L 3.5-10.5 (test code = 775) RED BLOOD CELL COUNT (BEAKER) 2.56 M/ L (test code = 761) HEMOGLOBIN (BEAKER) (test code = 8.4 GM/DL 11.2-15.7 L 410) HEMATOCRIT (BEAKER) (test code = 24.6 % 34.1-44.9 L 411) MEAN CORPUSCULAR VOLUME (BEAKER) 96 fL 79-95 H (test code = 753) MEAN CORPUSCULAR HEMOGLOBIN 32.8 pg 25.6-32.2 H (BEAKER) (test code = 751) MEAN CORPUSCULAR HEMOGLOBIN CONC 34.1 GM/DL 32.2-35.5 (BEAKER) (test code = 752) RED CELL DISTRIBUTION WIDTH 14.4 % 11.7-14.4 (BEAKER) (test code = 412) PLATELET COUNT (BEAKER) (test 333 K/CU MM 150-450 code = 756) MEAN PLATELET VOLUME (BEAKER) 9.4 fL 9.4-12.3 (test code = 754) NUCLEATED RED BLOOD CELLS 0 /100 WBC 0-0 (BEAKER) (test code = 413) NEUTROPHILS RELATIVE PERCENT 71 % (BEAKER) (test code = 429) LYMPHOCYTES RELATIVE PERCENT 18 % (BEAKER) (test code = 430) MONOCYTES RELATIVE PERCENT 8 % (BEAKER) (test code = 431) EOSINOPHILS RELATIVE PERCENT 2 % (BEAKER) (test code = 432) BASOPHILS RELATIVE PERCENT 0 % (BEAKER) (test code = 437) NEUTROPHILS ABSOLUTE COUNT 5.40 K/ L 1.56-6.13 (BEAKER) (test code = 670) LYMPHOCYTES ABSOLUTE COUNT 1.40 K/ L 1.18-3.74 (BEAKER) (test code = 414) MONOCYTES ABSOLUTE COUNT (BEAKER) 0.61 K/ L 0.24-0.36 H (test code = 415) EOSINOPHILS ABSOLUTE COUNT 0.16 K/ L 0.04-0.36 (BEAKER) (test code = 416) BASOPHILS ABSOLUTE COUNT (BEAKER) 0.02 K/ L 0.01-0.08 (test code = 417) IMMATURE GRANULOCYTES-RELATIVE 0.30 % 0.00-1.00 PERCENT (BEAKER) (test code = 2801) POCT-GLUCOSE [id number] 00:35:22 Test Item Value Reference Range Interpretation Comments POC-GLUCOSE METER 108 mg/dL 70-110 : TESTED Alexei Zimmerman [facility] 6720 (BEAKER) (test code = JACOB DEAL, 1538) [address]: Insurance Commissioner/Techni claudia ID = [id number] for Odalis Blake POCT-GLUCOSE [id number] 00:01:28 Test Item Value Reference Range Interpretation Comments POC-GLUCOSE METER 65 mg/dL 70-110 L : Notified RN/MD: TESTED (BEAKER) (test code = AT [facility] 67[address] [facility] 1538) [facility], 770 30: Insurance Commissioner/Techni claudia ID = [id number] for Odalis Robert POCT-GLUCOSE [id number] 18:06:40 Test Item Value Reference Range Interpretation Comments POC-GLUCOSE METER 129 mg/dL 70-110 H : [facility]) (test code = JACOB R [facility], 1538) [address]: Insurance Commissioner/Techni claudia ID = [id number] for RA MOS, CONSUELO POCT-GLUCOSE [id number] 12:31:56 Test Item Value Reference Range Interpretation Comments POC-GLUCOSE METER 81 mg/dL 70-110 : Notified RN/MD: TESTED (WILLIAN) (test code = AT [facility] 67[address] [facility] 1538) [facility], [facility] 30: Insurance Commissioner/Techni claudia ID = [id number] for Anaya Grider HEMOGLOBIN AND [id number] 12:01:00 Test Item Value Reference Range Interpretation Comments HEMOGLOBIN (WILLIAN) (test code = 8.1 GM/DL 11.2-15.7 L 410) HEMATOCRIT (WILLIAN) (test code = 24.5 % 34.1-44.9 L 411) Insurance Commissioner ID - [id number] [id number] 10:11:50 Test Item Value Reference Range Interpretation Comments HEMOGLOBIN A1C 5.3 % See_Comment [Automated m essage] ELECTROPHORESIS (WILLIAN) The system which (test code = 3811) generated this result transmitted ref erence range: <=5.6%. The reference range was not used to int erpret this result as normal/abnormal . "The A1c is measured using a NGSP-certified method. HbA1c value equal to or greater than 6.5% as thediagnosis cutoff for diabetes. An HbA1c value of 5.7- 6.4% indicates increased risk for diabetes (prediabetes)."Insurance Commissioner ID - ADM LACTIC ACID, [id number] 08:48:41 Test Item Value Reference Range Interpretation Comments LACTATE BLOOD VENOUS 0.56 mmol/L 0.50-2.20 Specime n slightly (2) (WILLIAN) (test hemolyzed code = 2872) Insurance Commissioner ID - MITCHHEMOGLOBIN AND [id number] 08:38:54 Test Item Value Reference Range Interpretation Comments HEMOGLOBIN (BEAKER) (test code = 8.0 GM/DL 11.2-15.7 L 410) HEMATOCRIT (BEAKER) (test code = 24.1 % 34.1-44.9 L 411) Insurance Commissioner ID - [id number] [id number] 07:47:02 Test Item Value Reference Range Interpretation Comments VITAMIN B12 (BEAKER) (test code = 692 pg/mL 213-816 774) Insurance Commissioner ID - MITCHPOCT-GLUCOSE [id number] 06:32:18 Test Item Value Reference Range Interpretation Comments POC-GLUCOSE METER 78 mg/dL 70-110 : TESTED A T [facility] 6720 (BEAKER) (test code = JACOB [place], 1538) [address]: Insurance Commissioner/Techni claudia ID = [id number] for Eleazar Chakraborty VITAMIN D, [id number] 05:23:09 Test Item Value Reference Range Interpretation Comments VITAMIN D 25-OH (BEAKER) (test 14.3 ng/mL 6.6-49.9 code = 2764) Effective 03/29/2017: Reference Range ChangeNew: 6.6-49.9 ng/mL Previous: 13.0- 47.8 ng/mLRecommendedVitamin D Target Range: 30.0-40.0 ng/mLOperator ID - BSHIV- 1 ANTIGEN WITH HIV-1/2 [id number] 05:23:09 Test Item Value Reference Range Interpretation Comments HIV-1 ANTIGEN WITH HIV 1\\T\\2 Nonreactive Nonreactive ANTIBODY (2) (BEAKER) (test code = 2586) Insurance Commissioner ID - BSIRON, TIBC, % SAT. (WITHOUT FERRITIN)2022-04-30 05:13:02 Test Item Value Reference Range Interpretation Comments IRON (BEAKER) (test code = 547) 49.0 ug/dL 40.0-160.0 TOTAL IRON BINDING CAPACITY 194 ug/dL 250-450 L (BEAKER) (test code = 769) IRON % SATURATION (2) (BEAKER) 25 % 20-55 (test code = 2590) Insurance Commissioner ID - [id number] 05:05:40 Test Item Value Reference Range Interpretation Comments MAGNESIUM (BEAKER) (test code = 1.6 mg/dL 1.6-2.6 627) Insurance Commissioner ID - ZACHARY [id number] 05:05:40 Test Item Value Reference Range Interpretation Comments PHOSPHORUS (BEAKER) (test code = 3.2 mg/dL 2.3-4.7 604) Insurance Commissioner ID - ZACHARY LBASIC METABOLIC [id number] 05:05:39 Test Item Value Reference Range Interpretation Comments SODIUM (BEAKER) 140 meq/L 136-145 (test code = 381) POTASSIUM 3.4 meq/L 3.5-5.1 L (BEAKER) (test code = 379) CHLORIDE (BEAKER) 112 meq/L 98-107 H (test code = 382) CO2 (BEAKER) 22 meq/L 22-29 (test code = 355) BLOOD UREA 8 mg/dL 7-21 NITROGEN (BEAKER) (test code = 354) CREATININE 0.51 mg/dL 0.57-1.25 L (BEAKER) (test code = 358) GLUCOSE RANDOM 76 mg/dL 70-105 (BEAKER) (test code = 652) CALCIUM (BEAKER) 8.4 mg/dL 8.4-10.2 (test code = 697) EGFR (BEAKER) 114 Interpretatio n of eGFR (test code = mL/min/1.73 values Stage De scription 1092) sq m Result G1 Hollie l or high >=90 G2 Mildly decreased 60-89 G3a Mildl y to moderately 45-5 9 G3b Moderately to s everely 30-44 G4 Severl y decreased 15-29 G5 Kidney failure <15Reported eGF R is based on the CKD-EPI 2020 equation that d oes not use a race coefficientEsti mated GFR is not as accur ate as Creatinine Meghan edwards in predicting glom erular filtration rate . Estimated GFR is not appl icable for dialysis patien ts Insurance Commissioner ID - PIECHO LCBC W/PLT COUNT & AUTO [id number] 05:01:01 Test Item Value Reference Range Interpretation Comments WHITE BLOOD CELL COUNT (BEAKER) 5.8 K/ L 3.5-10.5 (test code = 775) RED BLOOD CELL COUNT (BEAKER) 2.48 M/ L (test code = 761) HEMOGLOBIN (BEAKER) (test code = 8.0 GM/DL 11.2-15.7 L 410) HEMATOCRIT (BEAKER) (test code = 24.1 % 34.1-44.9 L 411) MEAN CORPUSCULAR VOLUME (BEAKER) 97 fL 79-95 H (test code = 753) MEAN CORPUSCULAR HEMOGLOBIN 32.3 pg 25.6-32.2 H (BEAKER) (test code = 751) MEAN CORPUSCULAR HEMOGLOBIN CONC 33.2 GM/DL 32.2-35.5 (BEAKER) (test code = 752) RED CELL DISTRIBUTION WIDTH 14.4 % 11.7-14.4 (BEAKER) (test code = 412) PLATELET COUNT (BEAKER) (test 311 K/CU MM 150-450 code = 756) MEAN PLATELET VOLUME (BEAKER) 9.9 fL 9.4-12.3 (test code = 754) NUCLEATED RED BLOOD CELLS 0 /100 WBC 0-0 (BEAKER) (test code = 413) NEUTROPHILS RELATIVE PERCENT 65 % (BEAKER) (test code = 429) LYMPHOCYTES RELATIVE PERCENT 27 % (BEAKER) (test code = 430) MONOCYTES RELATIVE PERCENT 7 % (BEAKER) (test code = 431) EOSINOPHILS RELATIVE PERCENT 1 % (BEAKER) (test code = 432) BASOPHILS RELATIVE PERCENT 0 % (BEAKER) (test code = 437) NEUTROPHILS ABSOLUTE COUNT 3.71 K/ L 1.56-6.13 (BEAKER) (test code = 670) LYMPHOCYTES ABSOLUTE COUNT 1.55 K/ L 1.18-3.74 (BEAKER) (test code = 414) MONOCYTES ABSOLUTE COUNT (BEAKER) 0.38 K/ L 0.24-0.36 H (test code = 415) EOSINOPHILS ABSOLUTE COUNT 0.08 K/ L 0.04-0.36 (BEAKER) (test code = 416) BASOPHILS ABSOLUTE COUNT (BEAKER) 0.01 K/ L 0.01-0.08 (test code = 417) IMMATURE GRANULOCYTES-RELATIVE 0.30 % 0.00-1.00 PERCENT (BEAKER) (test code = 2801) HEMOGLOBIN AND [id number] 00:37:27 Test Item Value Reference Range Interpretation Comments HEMOGLOBIN (BEAKER) (test code = 7.6 GM/DL 11.2-15.7 L 410) HEMATOCRIT (BEAKER) (test code = 23.1 % 34.1-44.9 L 411) Insurance Commissioner ID - 6000POCT-GLUCOSE [id number] 00:01:54 Test Item Value Reference Range Interpretation Comments POC-GLUCOSE METER 82 mg/dL 70-110 : TESTED A T [facility] 6720 (BEAKER) (test code = JACOB [place], 1538) [address]: Insurance Commissioner/Techni claudia ID = [id number] for Spen cer, Eleazar LACTIC ACID, [id number] 20:56:58 Test Item Value Reference Range Interpretation Comments LACTATE BLOOD VENOUS 0.51 mmol/L 0.50-2.20 Specime n slightly (2) (BEAKER) (test hemolyzed code = 2872) Insurance Commissioner ID - BSHEMOGLOBIN AND [id number] 20:49:15 Test Item Value Reference Range Interpretation Comments HEMOGLOBIN (BEAKER) (test code = 8.1 GM/DL 11.2-15.7 L 410) HEMATOCRIT (BEAKER) (test code = 23.1 % 34.1-44.9 L 411) Insurance Commissioner ID - [id number], UGI, WITHOUT [id number] 16:48:00WITH GASTROGRAFINReason for exam:->gastric ulcer perforation. r/o GG fistula [facility] 1970 Sex: FFINAL REPORT Upper GI examination History: gastric ulcer perforation. r/o GG fistula Technique: Upper GI examination was performed using Gastrografin. Comparison: CT dated April 28, 2022 Findings: The esophageal motility and caliber appears normal. Patient is status post gastric bypass. An outpouching adjacent to the gastric pouch may reflect a large ulceration/contained perforation. Nofistula is identified. There is no evidence of obstruction. Total fluoroscopy time: 1.03 minutes Total number of films: Eight Signed: Regan Anne Verified Date/Time: 04/29/2022 16:48:31 Reading Location: [facility] B1 C013X Ortho Consult Reading Room 22 04:48 PMHEMOGLOBIN AND [id number] 16:14:32 Test Item Value Reference Range Interpretation Comments HEMOGLOBIN (BEAKER) (test code = 7.1 GM/DL 11.2-15.7 L 410) HEMATOCRIT (BEAKER) (test code = 21.1 % 34.1-44.9 L 411) Insurance Commissioner ID - 6000Antibody [id number] 15:05:00 Test Item Value Reference Range Interpretation Comments ANTIBODY ID (BEAKER) Anti-K (test code = 2253) Antibody Consult SIGNED OUT Anti K caus es RBC (test code = 2479) injury, t ransfuse K negative RBCs.Electronic Signature: David Valdivia MD [facility]MO[facility] AND [id number] 11:36:06 Test Item Value Reference Range Interpretation Comments HEMOGLOBIN (BEAKER) (test code = 7.0 GM/DL 11.2-15.7 L 410) HEMATOCRIT (BEAKER) (test code = 20.9 % 34.1-44.9 L 411) Insurance Commissioner ID - [id number] 11:15:00 Test Item Value Reference Range Interpretation Comments PREALBUMIN (BEAKER) 15 mg/dL 14-45 Specimen moderately (test code = 586) hemolyzed Insurance Commissioner ID - BSCBC W/PLT COUNT & AUTO [id number] 09:25:45 Test Item Value Reference Range Interpretation Comments WHITE BLOOD CELL COUNT (BEAKER) 6.6 K/ L 3.5-10.5 (test code = 775) RED BLOOD CELL COUNT (BEAKER) 2.22 M/ L (test code = 761) HEMOGLOBIN (BEAKER) (test code = 7.4 GM/DL 11.2-15.7 L 410) HEMATOCRIT (BEAKER) (test code = 21.6 % 34.1-44.9 L 411) MEAN CORPUSCULAR VOLUME (BEAKER) 97 fL 79-95 H (test code = 753) MEAN CORPUSCULAR HEMOGLOBIN 33.3 pg 25.6-32.2 H (BEAKER) (test code = 751) MEAN CORPUSCULAR HEMOGLOBIN CONC 34.3 GM/DL 32.2-35.5 (BEAKER) (test code = 752) RED CELL DISTRIBUTION WIDTH 13.9 % 11.7-14.4 (BEAKER) (test code = 412) PLATELET COUNT (BEAKER) (test 322 K/CU MM 150-450 code = 756) MEAN PLATELET VOLUME (BEAKER) 9.3 fL 9.4-12.3 L (test code = 754) NUCLEATED RED BLOOD CELLS 0 /100 WBC 0-0 (BEAKER) (test code = 413) NEUTROPHILS RELATIVE PERCENT 72 % (BEAKER) (test code = 429) LYMPHOCYTES RELATIVE PERCENT 20 % (BEAKER) (test code = 430) MONOCYTES RELATIVE PERCENT 7 % (BEAKER) (test code = 431) EOSINOPHILS RELATIVE PERCENT 1 % (BEAKER) (test code = 432) BASOPHILS RELATIVE PERCENT 0 % (BEAKER) (test code = 437) NEUTROPHILS ABSOLUTE COUNT 4.81 K/ L 1.56-6.13 (BEAKER) (test code = 670) LYMPHOCYTES ABSOLUTE COUNT 1.31 K/ L 1.18-3.74 (BEAKER) (test code = 414) MONOCYTES ABSOLUTE COUNT (BEAKER) 0.43 K/ L 0.24-0.36 H (test code = 415) EOSINOPHILS ABSOLUTE COUNT 0.05 K/ L 0.04-0.36 (BEAKER) (test code = 416) BASOPHILS ABSOLUTE COUNT (BEAKER) 0.01 K/ L 0.01-0.08 (test code = 417) IMMATURE GRANULOCYTES-RELATIVE 0.30 % 0.00-1.00 PERCENT (BEAKER) (test code = 2801) [id number] 09:23:16 Test Item Value Reference Range Interpretation Comments PARTIAL THROMBOPLASTIN TIME 33.1 seconds 22.5-36.0 (BEAKER) (test code = 760) BLOOD GAS, [id number] 09:17:27 Test Item Value Reference Range Interpretation Comments PH VENOUS (BEAKER) (test code = 7.40 7.32-7.42 701) PCO2 VENOUS (BEAKER) (test code = 37 mm Hg 41-51 L 755) PO2 VENOUS (BEAKER) (test code = 132 mm Hg 25-40 H 702) O2 SATURATION VENOUS (BEAKER) 98.7 % 40.0-70.0 H (test code = 703) HCO3 VENOUS (BEAKER) (test code = 22 mmol/L 21-29 705) BASE EXCESS VENOUS (BEAKER) (test -2.2 mmol/L -2.0-3.0 L code = 704) PATIENT TEMPERATURE (BEAKER) 37.0 (test code = 1818) FIO2 (BEAKER) (test code = 1819) 21.0 SARS-COV2/RT-PCR ([facility])2022-04-29 09:15:30 Test Item Value Reference Range Interpretation Comments SARS-COV2/RT-PCR Negative Negative The SARS-Co V-2 target (test code = nucleic acids a re not 2903458) detected in thi s specimen. Negative result s do not preclude SARS-C oV-2 infection and s hould not be used as the deedee e basis for patient managem ent decisions. Nega tive results must be combine d with clinical observ ations, patient history , and epidemiological information. A false negativ e result may occur if a spec imen is improperly shawanda ected, transported or handled. This SARS CoV-2 test is a rapid, real-time RT-PC R test intended for th e qualitative detection of nu cleic acid from SARS-CoV-2 in a nasopharyngeal swab specimen collected from individuals suspected of CO VID-19 by their healthcar e provider. This test has been authorized by FDA under an EUA for use by authorized laboratories. This test is only authorized for the duration of the declaration that circumstances exist justifying the authorization of emergency use of in vitro diagnostic tests for detection and/or diagnosis of COVID-19 under Section 564(b)(1) of the Federal Food, Drug and Cosmetic Act, 21 U.S.C. 360bbb-3(b)(1), unless the authorization is terminated or revoked sooner. Fact Sheet for Healthcare Providers: https://www.cepheid.co m/Documents/Xpert%20Xpress%20SARS%20CoV-2/Fact%20Sheets/302-3802%49YAPF-TFK-9%20 HEALTHCARE%20PROVIDERS%20FACT%20SHEET.pdf Fact Sheet for Healthcare Patients: https://www.SmartExposee/Documents/Xpert%20Xp ress%20SARS%20CoV-2/Fact%20Sheets/302-3801%24DKKG-SPK-6%20PATIENT%20FACT%20SHEET .pdfRAD, CHEST, 1 VIEW, NON [id number] 09:10:00Reason for exam:->preop for urgent surgery todayShould this be performed at the bedside?->Yes [facility] : 1970 Sex: FFINAL REPORT INDICATION: preop for urgent surgery today COMPARISON: None TECHNIQUE: Single frontal view of the chest. FINDINGS: Lungs and pleura: Clear lungs. No effusion.Heart and mediastinum: Normal heart size. Unremarkable mediastinal contours.Osseous structures: No acute abnormality.Other: None. IMPRESSION: No acute intrathoracic abnormality. Signed: Sandra Pablo MDReport Verified Date/Time: 04/29/2022 09:10:06 Reading Location: [address] Reading Room [id number] 08:56:10 Test Item Value Reference Range Interpretation Comments MAGNESIUM (BEAKER) (test code = 1.7 mg/dL 1.6-2.6 627) Insurance Commissioner ID - PIAYA LCOMPREHENSIVE METABOLIC [id number] 08:56:09 Test Item Value Reference Range Interpretation Comments TOTAL PROTEIN 5.7 gm/dL 6.0-8.3 L (BEAKER) (test code = 770) ALBUMIN (BEAKER) 3.3 g/dL 3.5-5.0 L (test code = 1145) ALKALINE 89 U/L 40-150 PHOSPHATASE (BEAKER) (test code = 346) BILIRUBIN TOTAL 0.4 mg/dL 0.2-1.2 (BEAKER) (test code = 377) SODIUM (BEAKER) 139 meq/L 136-145 (test code = 381) POTASSIUM (BEAKER) 4.4 meq/L 3.5-5.1 (test code = 379) CHLORIDE (BEAKER) 114 meq/L 98-107 H (test code = 382) CO2 (BEAKER) (test 20 meq/L 22-29 L code = 355) BLOOD UREA 9 mg/dL 7-21 NITROGEN (BEAKER) (test code = 354) CREATININE 0.54 mg/dL 0.57-1.25 L (BEAKER) (test code = 358) GLUCOSE RANDOM 84 mg/dL 70-105 (BEAKER) (test code = 652) CALCIUM (BEAKER) 8.6 mg/dL 8.4-10.2 (test code = 697) AST (SGOT) 15 U/L 5-34 (BEAKER) (test code = 353) ALT (SGPT) 25 U/L 6-55 (BEAKER) (test code = 347) EGFR (BEAKER) 112 Interpretatio n of eGFR (test code = 1092) mL/min/1.73 values S tage Description sq m Result G1 Hollie l or high >=90 G2 Mildly decreased 60-89 G3a Mildl y to moderately 45-5 9 G3b Moderately to s everely 30-44 G4 Severl y decreased 15-29 G5 Kidney failure <15Reported eGF R is based on the CKD-EPI 202 equation that d oes not use a race coefficientEsti mated GFR is not as accur ate as Creatinine Meghan grace in predicting glom erular filtration rate . Estimated GFR is not appl icable for dialysis patien ts Insurance Commissioner ID - PIAYA LLACTIC ACID, [id number] 08:48:46 Test Item Value Reference Range Interpretation Comments LACTATE BLOOD VENOUS 1.00 mmol/L 0.50-2.20 Specime n slightly (2) (BEAKER) (test hemolyzed code = 2872) Insurance Commissioner ID - PIAYA LPROTHROMBIN TIME/[id number] 08:36:46 Test Item Value Reference Range Interpretation Comments PROTIME (BEAKER) 15.3 seconds 11.9-14.2 H (test code = 759) INR (BEAKER) (test 1.24 See_Comment [Automat ed message] code = 370) The system [employer] generated this result transmitted ref erence range: <=5.90. The reference range was not used to int erpret this result as normal/abnormal . RECOMMENDED COUMADIN/WARFARIN INR THERAPY RANGESSTANDARD DOSE: 2.0 - 3.0 Includes: PROPHYLAXIS for venous thrombosis, systemic embolization; TREATMENT for venous thrombosis and/or pulmonary embolus.HIGH RISK: Target INR is 2.5-3.5 for patients with mechanical heart valves.XR KNEE <3 VW [id number] 14:28:05HISTORY: Fall and knee pain. S/P TKR. FINDINGS: AP, lateral, oblique views of left knee obtained with portabletechnique showed no acute fracture or dislocation. TKR changes noted withno hardware-related complications. Soft tissue swelling noted anterior tothe knee with probable moderate knee joint effu rivera. CONCLUSIONS: No acute fracture or dislocation in left knee. [facility], Radiant Results Inft User - 10/01/2020 9:29 AM CDTHISTORY: Fall and knee pain. S/P TKR.FINDINGS: AP, lateral, oblique views of left knee obtained with portabletechnique showed no acute fracture or dislocation. TKR changes noted wit hno hardware-related complications. Soft tissue swelling noted anterior tothe knee with probable moderate knee joint effusion.CONCLUSIONS: No acute fracture or dislocation in left knee.[facility] 2020-09-16 18:32:13HISTORY: Total left knee replacement. FINDINGS: AP, lateral and oblique views of left knee showed changes oftotal knee replacement. The hardware is in good position. Skin latasha arein place. Drainage catheter has been removed since the postoperativeimmediate postoperative films. CONCLUSION: S/P left TKR. [facility], Radiant Results Inft User - 09/16/2020 1:33 PM CDTHISTORY: Total left knee replacement.FINDINGS: AP, lateral and oblique views of left knee showed changes oftotal knee replacement. The hardware is in good position. Skin latasha arein place. Drainage catheter has been removed since the postope rativeimmediate postoperative films.CONCLUSION: S/P left TKR.[facility]3 VW [id number] 13:20:29 HISTORY: Total left knee replacement. FINDINGS: ?AP and crosstable lateral views of left knee were o btained withportable technique at 10:48 AM. Postoperative changes of total kneereplacement noted. The hardware is in good position. I do not see any acuteintraoperative fracture. Soft tissue swelling along with air in the softtissue from surgical dissection noted. Skin latasha and drainage catheterare in place. CONCLUSION: ?Postoperative changes of total left knee replacement. [facility], Radiant Results Inft User - 09/01/2020 8:21 AM CDTHISTORY: Total left knee replacement.FINDINGS: AP and crosstable lateral views of left knee were obtained withportable technique at 10:48 AM. Postoperative changes of total kneereplacement noted. The hardware is in good position. I do not see any acuteintraoperative fracture. Soft tissue swelling along with air in the softtissue from surgical dissection noted. Skin latasha and drainage catheterare in place.CONCLUSION: Postoperative changes of total left knee replacement. [facility]ABOLIC PANEL (NA, K, CL, CO2, GLUCOSE, BUN, CREATININE, CA)2020-09-01 10:19:00 Test Item Value Reference Range Interpretation Comments NA (test code = 137 mmol/L 135-145 1775154801) K (test code = 3.5 mmol/L 3.5-5.0 0437733642) CL (test code = 107 mmol/L 98-108 1077671913) CO2 TOTAL (test code = 26 mmol/L 23-31 0620836202) AGAP (test code = 2-16 1995112311) BUN (test code = 15 mg/dL 7-23 4944920894) GLUCOSE (test code = 107 mg/dL 70-110 3924028541) CREATININE (test code = 0.33 mg/dL 0.50-1.04 L 4517382517) CALCIUM (test code = 8.4 mg/dL 8.6-10.6 L 3506549338) eGFR Calculation mL/min/1.73m2 (Non-) (test code = 5205648154) eGFR Calculation mL/min/1.73m2 () (test code = 2281228338) THADDEUS (test code = THADDEUS) Association of Glomerular Filtration Rate (GFR) and Staging of Kidney Disease* + --+ --+ ------+| GFR (mL/min/1.73 m2) ?| With Kidney Damage ?| ?Without Kidney Damage+ --------+ --------+ +| ?>90 ?| ?Stage one ?| ? Normal ?+ ---+ ---+ -------+| ?60-89 ?| ?Stage two ?| ? Decreased GFR ? + --+ --+ ------+| ?30-59 ?| ?Stage three ?| ? Stage three ? + --+ --+ ------+| ?15-29 ?| ?Stage four ? | ? Stage four ?+ ---+ ---+ -------+| ?<15 (or dialysis) ? ?| ?Stage five ? | ? Stage five ?+ ---+ ---+ -------+ *Each stage assumes the associated GFR level has been in effect for at least three months. ?Stages 1 to 5, with or without kidney disease, indicate chronic kidney disease. Notes: Determination of stages one and two (with eGFR >59mL/min/1.73 m2) requires estimation of kidney damage for at least three months as defined by structural or functional abnormalities of the kidney, manifested by either:Pathological abnormalities or Markers of kidney damage (including abnormalities in the composition of the blood or urine or abnormalities in imaging tests). Lab Interpretation Abnormal (test code = 43651-2) [facility] with [id number] 10:05:57 Test Item Value Reference Range Interpretation Comments WBC (test code = See_Comment H [Automated 0590-2) message] The system which generated this result transmit maddie reference range : 4.30 - 11.10 10*3/?L. The reference range was not used to interpret this result as normal/abnormal . RBC (test code = See_Comment L [Automated 799-8) message] The system which generated this result transmit maddie reference range : 3.93 - 5.25 10*6/?L. The reference range was not used to interpret this result as normal/abnormal . HGB (test code = 10.7 g/dL 11.6-15.0 L 718-7) HCT (test code = 31.5 % 35.7-45.2 L 4544-3) MCV (test code = 97.5 fL 80.6-95.5 H 787-2) MCH (test code = 33.1 pg 25.9-32.8 H 785-6) MCHC (test code = 34.0 g/dL 31.6-35.1 786-4) RDW-SD (test code = 48.3 fL 39.0-49.9 65697-6) RDW-CV (test code = 13.4 % 12.0-15.5 788-0) PLT (test code = See_Comment [Automated 777-3) message] The system which generated this result transmit maddie reference range : 166 - 358 10*3/ ?L. The reference range was not u sed to interpret th is result as normal/abnormal . MPV (test code = 10.7 fL 9.5-12.9 80571-2) NRBC/100 WBC (test See_Comment [Automat ed code = [id number]) message] The system which generated this result transmit maddie reference range : 0.0 - 10.0 /100 WBCs. The reference range was not used to interpret this result as normal/abnormal . NRBC x10^3 (test code <0.01 See_Comment [Auto mated = [id number]) message] The system which generated this result transmit maddie reference range : 10*3/?L. The reference range was not used to interpret this result as normal/abnormal . GRAN MAT (NEUT) % 78.2 % (test code = 770-8) IMM GRAN % (test code 0.40 % = 1978125730) LYMPH % (test code = 13.8 % 736-9) MONO % (test code = 7.3 % 5905-5) EOS % (test code = 0.2 % 713-8) BASO % (test code = 0.1 % 706-2) GRAN MAT x10^3(ANC) 12.84 10*3/uL 1.88-7.09 H (test code = 2501210132) IMM GRAN x10^3 (test 0.07 10*3/uL 0.00-0.06 H code = 2510931326) LYMPH x10^3 (test code 2.26 10*3/uL 1.32-3.29 = 731-0) MONO x10^3 (test code 1.20 10*3/uL 0.33-0.92 H = 742-7) EOS x10^3 (test code = 0.03 10*3/uL 0.03-0.39 711-2) BASO x10^3 (test code <0.03 0.01-0.07 = 704-7) Lab Interpretation Abnormal (test code = 50971-8) [facility] [id number] 15:09:531. Mild pulmonary vascular congestionCHEST 2 VIEWS: HISTORY:Preop TECHNIQUE:: ?PA and lateral views of the chest are obtained. COMPARISON: 09/30/2014 FINDINGS: Slight prominence of the vasculature is noted. The lungs areotherwise clear. The heart size and mediastinal silhouette are normal. Nopleural effusion or pneumothorax is seen. [facility], Radiant Results Inft User - 08/28/2020 9:11 AM CSTCHEST 2 VIEWS: HISTORY:PreopTECHNIQUE:: PA and lateral views of the chest are obtained.COMPARISON: 09/30/2014FINDINGS: Slight prominence of the vasculature is noted. The lungs areotherwise clear. The heart size and mediastinal silhouette are normal. Nopleural effusion or pneumothorax is seen.IMPRESSION1. Mild pulmonary vascular congestionUnCarl R. Darnall [facility] Center
[2023-04-02] MEDS ORDERED: ONDANSETRON 4 MG/2 ML VIAL ONE (23:09)
[2023-04-02] MEDS ORDERED: FAMOTIDINE 20 MG/2 ML VIAL IV ONE (23:09)
[2023-04-02] MEDS ORDERED: MORPHINE 4 MG/ML SYR ONE (23:09)
[2023-04-02 23:48] LABS: Specific Gravity > 1.030 (1.005-1.030); Urine Bacteria None Seen /HPF (<20); Urine Bilirubin NEGATIVE (Negative); Urine Blood Negative (Negative); Urine Clarity Clear (Clear); Urine Color Yellow (Yellow); Urine Glucose TRACE (Negative); Urine Mucus 2+ /HPF (None Seen); Urine Protein 1+ (Negative); Urine RBC <5 /HPF (None Seen); Urine Urobilinogen 1+ (Normal); Urine pH 5.5 (5.0-7.0)
[2023-04-02 23:51] LABS: Absolute Lymphocytes (CBC) 1.2 K/uL (0.7-4.9); Hematocrit 34.7 % (36.0-45.0); Lymphocytes % 14.7 % (15.3-44.8); MPV 8.1 fL (7.6-11.3); Platelets 318 thou/uL (152-406); RBC Red Blood Cell Count 3.55 M/uL (3.86-4.86)
[2023-04-03] LABS: Albumin 3.8 g/dL (3.4-5.0); Bilirubin Total 0.3 mg/dL (0.2-1.0); Potassium 3.2 mEq/L (3.5-5.1); Protein, Total 7.6 g/dL (6.4-8.2)
[2023-04-03] MEDS ORDERED: BISACODYL E.C. 5 MG TAB PO ONE (01:51)
[2023-04-03] MEDS ORDERED: MAGNESIUM CITRATE 300 ML BOT ONE (01:51)
[2023-04-03] MEDS ORDERED: HYDROCODONE/APAP 10/325 TAB ONE (01:51)
--- NOTE | 2023-04-03 01:58 | ER ---
Nurse's Notes [facility] Name: Morena Bajwa Age: 52 yrs Sex: Female : 1970 Arrival Date: 04/02/2023 Time: 22:14 Bed 17 Private MD: Diagnosis: GI Bleed/ Gastrointestinal hemorrhage, unspecified;Lower abdominal pain, unspecified Presentation: 04/02 22:35 Chief complaint: Patient states: abdominal pain that started yesterday with me1 fever/chills. Started vomiting today and abdominal pain worsened. Intermittent black stools for the past week. Hx gastric bypass, GERD and ulcer. Coronavirus screen: Vaccine status: Patient reports receiving the 2nd dose of the covid vaccine. Ebola Screen: No symptoms or risks identified at this time. Initial Sepsis Screen: Does the patient meet any 2 criteria? No. Patient's initial sepsis screen is negative. Does the patient have a suspected source of infection? No. Patient's initial sepsis screen is negative. Risk Assessment: Do you want to hurt yourself or someone else? Patient reports no desire to harm self or others. Onset of symptoms was April 01, 2023. 22:35 Method Of Arrival: Ambulatory [facility] 22:35 Acuity: LAUREN 3 me1 Triage Assessment: 22:38 General: Appears uncomfortable, slender, Behavior is calm, cooperative, appropriate for ks1 age, Reports chills for fever for feeling ill for abdominal pain and fever/chills that started yesterday. Started vomiting today and abdominal pain worsened. Intermittent black stools x 1 week. Pain: Complains of pain in epigastric area Pain does not radiate. Pain currently is 8 out of 10 on a pain scale. Quality of pain is described as heavy, pressure, Pain began gradually, Is continuous. Neuro: Level of Consciousness is awake, alert, obeys commands, Oriented to person, place, time, situation, Appropriate for age. Cardiovascular: Capillary refill < 3 seconds Patient's skin is warm and dry. Respiratory: Airway is patent Respiratory effort is even, unlabored, Respiratory pattern is regular, symmetrical. GI: Reports nausea, vomiting, bloody stools off and on for the past week. REWRITER: 22:38 LMP N/A - Post-menopause, Not me1 Historical: - Allergies: 22:38 No Known Drug Allergies; me1 - Home Meds: 22:38 Protonix oral [Active]; Flexeril Oral [Active]; Tow Oral [Active]; Trazodone Oral me1 [Active]; Zoloft Oral [Active]; - PMHx: 22:38 Chronic pain; GERD; Anxiety; depression; Ulcer; me1 - PSHx: 22:38 Gastric Bypass; Knee Replacement-left; bilateral rotator cuff repair; back surgery; me1 - Immunization history:: Adult Immunizations up to date. - Social history:: Smoking status: Reported history of juuling and/or vaping. Screenin:44 [facility] ED Fall Risk Assessment (Adult) History of falling in the last 3 months, me1 including since admission No falls in past 3 months (0 pts) Confusion or Disorientation No (0 pts) Intoxicated or Sedated No (0 pts) Impaired Gait No (0 pts) Mobility Assist Device Used No (0 pt) Altered Elimination No (0 pt) Score/Fall Risk Level 0 - 2 = Low Risk. Abuse screen: Denies threats or abuse. Nutritional screening: No deficits noted. Tuberculosis screening: No symptoms or risk factors identified. Assessment: 22:44 General: See triage assessment. . me1 22:45 GI: Bowel sounds present X 4 quads. Abd is soft X 4 quads. ks1 04/03 01:30 General: "my pain is starting to come back" provider notified . as6 02:45 Reassessment: Patient appears in no apparent distress at this time. as6 Vital Signs: 04/02 22:35 BP 132 / 73; Pulse 57; Resp 18; Temp 98.4(O); Pulse Ox 100% on R/A; Weight 61.23 kg; me1 Height 5 ft. 3 in. ; Pain 8/10; 23:26 BP 118 / 71; Pulse 52; Resp 16; Pulse Ox 99% on R/A; me1 23:57 BP 114 / 71; Pulse 51; Resp 14; Pulse Ox 98% on R/A; me1 04/03 01:00 BP 111 / 71; Pulse 55; Resp 18 S; Pulse Ox 99% on R/A; as6 01:42 BP 103 / 67; Pulse 57; Resp 16 S; Pulse Ox 99% on R/A; as6 02:45 BP 104 / 59; Pulse 56; Resp 18 S; Pulse Ox 99% on R/A; as6 04/02 22:35 Body Mass Index 23.91 (61.23 kg, 160.02 cm) me1 04/02 22:35 Pain Scale: Adult [facility] ED Course: 04/02 22:17 Patient arrived in ED. mr 22:23 Wily Brush MD is Attending Physician. kdr 22:29 Nicol Arnold, CAR is Primary Nurse. me1 22:38 Triage completed. me1 22:38 Arm band placed on Patient placed in waiting room. me1 22:44 Patient has correct armband on for positive identification. Bed in low position. Call me1 light in reach. Side rails up X 1. Provided Education on: POC. Verbalized understanding. . 22:44 No provider procedures requiring assistance completed. me1 23:06 Urinalysis w/ reflexes Sent. me1 23:14 Inserted saline lock: 22 gauge in right forearm, using aseptic technique. Blood as6 collected. 23:14 CBC with Diff Sent. as6 23:14 CMP Sent. as6 23:14 Lipase Sent. as6 04/03 00:24 CT Abd/Pelvis - IV Contrast Only In Process Unspecified. EDMS 03:26 Patient transferred, IV remains in place. as6 Administered Medications: 04/02 23:26 Drug: Famotidine IVP 20 mg IVP once; dilute with 10 mL 0.9% NaCl; give over 2 minutes me1 Route: IVP; Site: right forearm; 23:31 Follow up: Response: No adverse reaction me1 23:26 Drug: Ondansetron IVP 4 mg IVP once; over 2 minutes Route: IVP; Site: right forearm; me1 23:32 Follow up: Response: No adverse reaction; Nausea is decreased me1 23:26 Drug: morphine IVP or IV 4 mg IVP once over 4 mins Route: IVP; Infused Over: 4 mins; me1 Site: right forearm; 23:32 Follow up: Response: No adverse reaction; Pain is decreased me1 04/03 01:41 Drug: Tow PO 10 mg-325 mg 1 tabs PO once Route: PO; as6 03:14 Follow up: Response: No adverse reaction as6 01:41 Drug: Dulcolax PO Delayed Release Tablet 5 mg PO once; two tabs PO x1 Route: PO; as6 03:14 Follow up: Response: No adverse reaction as6 01:41 Drug: Magnesium Citrate PO Liquid 300 ml PO once Route: PO; as6 03:14 Follow up: Response: No adverse reaction as6 02:44 Drug: NS 0.9% IV 500 ml IV at bolus once Route: IV; Rate: bolus; Site: right forearm; as6 03:14 Follow up: Response: No adverse reaction; IV Status: Completed infusion; IV Intake: as6 500ml 03:25 Drug: morphine IVP or IV 4 mg IVP once over 4 mins Route: IVP; Infused Over: 4 mins; as6 Site: right forearm; 03:25 Follow up: Response: No adverse reaction as6 Medication: 04/02 22:44 VIS not applicable for this client. me1 Intake: 04/03 03:14 IV: 500ml; Total: 500ml. as6 Outcome: 01:58 ER care complete, transfer ordered by . kdr 03:25 Transferred by ground EMS to [facility], Transfer form completed. as6 X-rays sent w/ patient. 03:25 Condition: stable 03:25 Instructed on the need for transfer, 03:26 Patient left the ED. as6 Signatures: Dispatcher [employer] EDWily Kennedy MD MD kdr Nereyda Mai, Jadon Reg mr Dane Knott, RN RN as6 Nicol Arnold RN RN me1 Corrections: (The following items were deleted from the chart) 04/02 22:41 22:38 Home Meds: hydrocodone-acetaminophen 5-325 mg Oral tab 1 tab every 4 hours; me1 me1 22:41 22:38 Home Meds: Protonix 40 mg Oral TbEC 1 tab once daily; me1 me1
--- NOTE | 2023-04-03 01:58 | EDPHYS ---
Physician Documentation [facility] Name: Morena Bajwa Age: 52 yrs Sex: Female : 1970 Arrival Date: 04/02/2023 Time: 22:14 Bed 17 Private MD: ED Physician Wily Brush HPI: 04/02 23:53 This 52 yrs old Female presents to ER via Ambulatory with complaints of kdr Abdominal Pain, Vomiting. 23:53 Patient presents with abdominal pain that started yesterday. She also reports earlier kdr today fever and chills. She also indicated that she started to vomit earlier today and that the pain is worsened. Patient has had intermittent black stools for the past week. She has a history of gastric bypass and GERD with recurrent ulcers. Patient is nontoxic-appearing but otherwise stable in the ED. Onset: The symptoms/episode began/occurred gradually, yesterday. Severity of symptoms: At their worst the symptoms were mild moderate in the emergency department the symptoms are unchanged. The patient has experienced similar episodes in the past, multiple times. The patient has not recently seen a physician. 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 - Social history:: Smoking status: Reported history of juuling and/or vaping. ROS: 23:53 Constitutional: Negative for objective fever and weight loss -patient states she did kdr have chills and subjective fever earlier today Eyes: Negative for injury, pain, redness, and discharge, Neck: Negative for injury, pain, and swelling, Cardiovascular: Negative for chest pain, palpitations, and edema, Respiratory: Negative for shortness of breath, cough, wheezing, and pleuritic chest pain, Back: Negative for injury and pain, : Negative for injury, bleeding, discharge, and swelling, MS/Extremity: Negative for injury and deformity, Skin: Negative for injury, rash, and discoloration, Neuro: Negative for headache, weakness, numbness, tingling, and seizure activity. Psych: Negative for depression, anxiety, suicide ideation, homicidal ideation, and hallucinations, Allergy/Immunology: Negative for hives, rash, and allergies, Endocrine: Negative for neck swelling, polydipsia, polyuria, polyphagia, and marked weight changes, Hematologic/Lymphatic: Negative for swollen nodes, abnormal bleeding, and unusual bruising, 23:53 Abdomen/GI: Positive for abdominal pain, nausea, abdominal cramps, Dark stools, Negative for black/tarry stool, rectal pain, Exam: 23:53 Constitutional: This is a well developed, well nourished patient who is awake, alert, kdr and in no acute distress. Head/Face: Normocephalic, atraumatic. Eyes: Pupils equal round and reactive to light, extra-ocular motions intact. Lids and lashes normal. Conjunctiva and sclera are non-icteric and not injected. Cornea within normal limits. Periorbital areas with no swelling, redness, or edema. Neck: Trachea midline, no thyromegaly or masses palpated, and no cervical lymphadenopathy. Supple, full range of motion without nuchal rigidity, or vertebral point tenderness. No Meningismus. Chest/axilla: Normal chest wall appearance and motion. Nontender with no deformity. No lesions are appreciated. Cardiovascular: Regular rate and rhythm with a normal S1 and S2. No gallops, murmurs, or rubs. Normal PMI, no JVD. No pulse deficits. Respiratory: Lungs have equal breath sounds bilaterally, clear to auscultation and percussion. No rales, rhonchi or wheezes noted. No increased work of breathing, no retractions or nasal flaring. Abdomen/GI: Soft, non-tender, with normal bowel sounds. No distension or tympany. No guarding or rebound. No evidence of tenderness throughout. Back: No spinal tenderness. No costovertebral tenderness. Full range of motion. Skin: Warm, dry with normal turgor. Normal color with no rashes, no lesions, and no evidence of cellulitis. MS/ Extremity: Pulses equal, no cyanosis. Neurovascular intact. Full, normal range of motion. Neuro: Awake and alert, GCS 15, oriented to person, place, time, and situation. Cranial nerves II-XII grossly intact. Motor strength 5/5 in all extremities. Sensory grossly intact. Cerebellar exam normal. Normal gait. Psych: Awake, alert, with orientation to person, place and time. Behavior, mood, and affect are within normal limits. Vital Signs: 22:35 BP 132 / 73; Pulse 57; Resp 18; Temp 98.4(O); Pulse Ox 100% on R/A; Weight 61.23 kg; me1 Height 5 ft. 3 in. ; Pain 8/10; 23:26 BP 118 / 71; Pulse 52; Resp 16; Pulse Ox 99% on R/A; me1 23:57 BP 114 / 71; Pulse 51; Resp 14; Pulse Ox 98% on R/A; oh1 04/03 01:00 BP 111 / 71; Pulse 55; Resp 18 S; Pulse Ox 99% on R/A; as6 01:42 BP 103 / 67; Pulse 57; Resp 16 S; Pulse Ox 99% on R/A; as6 02:45 BP 104 / 59; Pulse 56; Resp 18 S; Pulse Ox 99% on R/A; as6 04/02 22:35 Body Mass Index 23.91 (61.23 kg, 160.02 cm) oh1 04/02 22:35 Pain Scale: [facility] MDM: 01:58 Patient medically screened. kdr 02:00 Data reviewed: vital signs, nurses notes. kdr 04/02 22:52 Order name: CBC with Diff; Complete Time: 01:05 kdr 04/02 22:52 Order name: CMP; Complete Time: 01:05 kdr 04/02 22:52 Order name: Lipase; Complete Time: 01:05 kdr 04/02 22:52 Order name: Urinalysis w/ reflexes; Complete Time: 23:51 kdr 04/03 01:06 Order name: Hemoglobin; Complete Time: 01:53 kdr 04/02 22:52 Order name: CT Abd/Pelvis - IV Contrast Only kdr 04/02 22:52 Order name: IV Saline Lock; Complete Time: 23:14 kdr 04/02 22:52 Order name: Labs collected and sent; Complete Time: 23:14 kdr Administered Medications: 04/02 23:26 Drug: Famotidine IVP 20 mg IVP once; dilute with 10 mL 0.9% NaCl; give over 2 minutes me1 Route: IVP; Site: right forearm; 23:31 Follow up: Response: No adverse reaction me1 23:26 Drug: Ondansetron IVP 4 mg IVP once; over 2 minutes Route: IVP; Site: right forearm; me1 23:32 Follow up: Response: No adverse reaction; Nausea is decreased me1 23:26 Drug: morphine IVP or IV 4 mg IVP once over 4 mins Route: IVP; Infused Over: 4 mins; me1 Site: right forearm; 23:32 Follow up: Response: No adverse reaction; Pain is decreased me1 04/03 01:41 Drug: [place] PO 10 mg-325 mg 1 tabs PO once Route: PO; as6 03:14 Follow up: Response: No adverse reaction as6 01:41 Drug: Dulcolax PO Delayed Release Tablet 5 mg PO once; two tabs PO x1 Route: PO; as6 03:14 Follow up: Response: No adverse reaction as6 01:41 Drug: Magnesium Citrate PO Liquid 300 ml PO once Route: PO; as6 03:14 Follow up: Response: No adverse reaction as6 02:44 Drug: NS 0.9% IV 500 ml IV at bolus once Route: IV; Rate: bolus; Site: right forearm; as6 03:14 Follow up: Response: No adverse reaction; IV Status: Completed infusion; IV Intake: as6 500ml 03:25 Drug: morphine IVP or IV 4 mg IVP once over 4 mins Route: IVP; Infused Over: 4 mins; as6 Site: right forearm; 03:25 Follow up: Response: No adverse reaction as6 Disposition Summary: 04/03/23 01:58 Transfer Ordered Notes: Transfer Location: [facility] kdr Reason: Higher level of care kdr Condition: Fair kdr Problem: an acute exacerbation kdr Symptoms: are unchanged kdr Accepting Physician: [facility] Miamiviridiana(04/03/23 03:26) as6 Diagnosis - GI Bleed/ Gastrointestinal hemorrhage, unspecified kdr - Lower abdominal pain, unspecified kdr Forms: - Medication Reconciliation Form kdr - SBAR form kdr Signatures: Dispatcher [employer] EDMS Rittger, Wily, MD Dane Patel RN RN as6 Nicol Arnold RN RN me1 Corrections: (The following items were deleted from the chart) 04/02 22:41 22:38 Home Meds: hydrocodone-acetaminophen 5-325 mg Oral tab 1 tab every 4 hours; oh1 me1 22:41 22:38 Home Meds: Protonix 40 mg Oral TbEC 1 tab once daily; oh1 oh1 04/03 03:26 01:58 [facility] kdr as6
[2023-04-03] MEDS ORDERED: NA CHLORIDE 0.9% 500 ML ONE (02:55)
[2023-04-03] MEDS ORDERED: MORPHINE 4 MG/ML SYR ONE (03:31)
[2023-04-03 03:58] VITALS: TEMP 98.4
[2023-04-03 04:00] VITALS: O2SAT 99
[2023-04-03 04:03] VITALS: BP 104/59
--- NOTE | 2023-04-03 17:58 | RAD REPORT ---
EXAM DESCRIPTION: CT - Abdomen Pelvis W Contrast - 04/03/2023 6:13 am CLINICAL HISTORY: The patient is 52 years old and is Female; ABD PAIN TECHNIQUE: Axial computed tomography images of the abdomen and pelvis with intravenous contrast. S agittal and coronal reformatted images were created and reviewed. This CT exam was performed using one or more of the following dose reduction techniques: automated exposure control, adjustment of t he mA and/or kV according to patient size, and/or use of iterative reconstruction technique. DLP: 840 mGy*cm COMPARISON: CT abdomen and pelvis dated 04/29/2022. FINDINGS: LUNG BASES: Lung bases are clear. HEART: Visualized heart is normal. ABDOMEN: LIVER: Hepatic steatosis. GALLBLADDER AND BILE DUCTS: Prior cholecystectomy with advanced intron extrahepatic biliary ductal dilatation. PANCREAS: Unremarkable. No mass. No ductal dilation. SPLEEN: Unremarkable. No splenomegaly. ADRENALS: Unremarkable. No mass. KIDNEYS AND URETERS: Unremarkable. No solid mass. No hydronephrosis. STOMACH AND BOWEL: Moderate to severe stool burden. Mild sigmoid diverticulosis. No acute diverticulitis. No obstruction. PELVIS: APPENDIX: No findings to suggest acute appendicitis. BLADDER: Bladder is decompressed. REPRODUCTIVE: Prior hysterectomy. ABDOMEN and PELVIS: INTRAPERITONEAL SPACE: Unremarkable. No free air. No significant fluid collection. BONES/JOINTS: Grade 1 anterolisthesis of L5 on S1. No acute fracture. No dislocation. SOFT TISSUES: Unremarkable. VASCULATURE: Mild vascular calcifications. No abdominal aortic aneurysm. LYMPH NODES: Unremarkable. No enlarged lymph nodes. IMPRESSION: 1. No acute abdominal or pelvic abnormality. 2. Moderate to severe stool burden. Correlate for constipation. 3. Hepatic steatosis. 4. Grade 1 anterolisthesis of L5 on S1. 5. Prior cholecystectomy with advanced intron extrahepatic biliary ductal dilatation. 6. Mild sigmoid diverticulosis. No acute diverticulitis. Electronically signed by: Parminder Lopez DO 04/03/2023 12:39 AM CDT Due to temporary technical issues with the PACS/Fluency reporting system, reports are being signed by the in house radiologists without review as a courtesy to insure prompt reporting. The interpreting radiologist is fully responsible for the content of the report.
== END 2023-04-03 03:26 | disposition short-term general hospital (02) ==
LOC: ER 22:14
DX: K92.2 Gastrointestinal hemorrhage, unspecified (principal); R10.30 Lower abdominal pain, unspecified; K21.9 Gastro-esophageal reflux disease without esophagitis
CPT/HCPCS: 85025; 81001; 36415; 85018; 83690; 80053; 74177; 96375; 96374; 99285; Q9967; J2405; J7040

== ENCOUNTER → 2023-06-08 | Emergency (ER) | payer OTHER ==
[~2023-06-08] MED LIST: HYDROMORPHONE HCL 1 MG/ML INJ ONE; INSULIN REGULAR (HUMAN) 100 UNIT/ML ONE; NA CHLORIDE 0.9% 1,000 ML ONE; ONDANSETRON 4 MG/2 ML VIAL ONE
[2023-06-09 00:20] LABS: Absolute Lymphocytes (CBC) 1.1 K/uL (0.7-4.9); Lymphocytes % 17.6 % (15.3-44.8); MCV 98.8 fL (80-100); MPV 7.9 fL (7.6-11.3); Platelets 330 thou/uL (152-406); RBC Red Blood Cell Count 3.64 M/uL (3.86-4.86)
[2023-06-09 00:24] LABS: Specific Gravity 1.028 (1.005-1.030); Urine Bilirubin NEGATIVE (Negative); Urine Blood Negative (Negative); Urine Clarity Clear (Clear); Urine Color Light-Yellow (Yellow); Urine Glucose NEGATIVE (Negative); Urine Protein NEGATIVE (Negative); Urine Urobilinogen Normal (Normal)
[2023-06-09 01:17] LABS: Albumin 3.1 g/dL (3.4-5.0); Bilirubin Total 0.3 mg/dL (0.2-1.0); Potassium 3.8 mEq/L (3.5-5.1); Protein, Total 6.5 g/dL (6.4-8.2)
--- NOTE | 2023-06-09 02:55 | ER ---
Nurse's Notes [facility] Name: Morena Bajwa Age: 53 yrs Sex: Female : 1970 Arrival Date: 06/08/2023 Time: 22:10 Bed 20 Private MD: Diagnosis: Abdominal pain, hyperglycemia resolved Presentation: 06/08 22:39 Chief complaint: Patient states: abdominal pain and dark bloody stools that started as6 yesterday and pain worsened today. Coronavirus screen: At this time, the client does not indicate any symptoms associated with coronavirus-19. Ebola Screen: No symptoms or risks identified at this time. Initial Sepsis Screen: Does the patient meet any 2 criteria? No. Patient's initial sepsis screen is negative. Does the patient have a suspected source of infection? No. Patient's initial sepsis screen is negative. Risk Assessment: Do you want to hurt yourself or someone else? Patient reports no desire to harm self or others. Onset of symptoms was June 07, 2023. 22:39 Acuity: LAUREN 3 as6 22:39 Method Of Arrival: Ambulatory as6 Triage Assessment: 22:42 General: Appears uncomfortable, Behavior is calm, cooperative. Pain: Complains of pain as6 in abdomen. GI: Reports lower abdominal pain, bloody stool, nausea. 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 - Social history:: Smoking status: Reported history of juuling and/or vaping. Screenin/22 01:49 [facility] ED Fall Risk Assessment (Adult) History of falling in the last 3 months, pf1 including since admission No falls in past 3 months (0 pts) Confusion or Disorientation No (0 pts) Intoxicated or Sedated No (0 pts) Impaired Gait No (0 pts) Mobility Assist Device Used No (0 pt) Altered Elimination No (0 pt) Score/Fall Risk Level 0 - 2 = Low Risk Oriented to surroundings, Maintained a safe environment, Educated pt \T\ family on fall prevention, incl call for assistance when getting out of bed, Assessed \T\ reinforced patient's understanding of fall precautions, Provided non-skid footwear, Hourly rounding (assess needs \T\ fall precautionary measures) done, Used ambulatory aids as needed (educated on \T\ assisted with), Used gait belt as appropriate. Abuse screen: Denies threats or abuse. Nutritional screening: No deficits noted. Tuberculosis screening: No symptoms or risk factors identified. Assessment: 06/08 22:45 General: Appears in no apparent distress. uncomfortable, well groomed, well developed, pf1 Behavior is calm, cooperative, appropriate for age, quiet. 22:45 Pain: Complains of pain in abdomen Pain currently is 9 out of 10 on a pain scale. Pain pf1 began 1 day ago. Neuro: No deficits noted. Level of Consciousness is awake, alert, obeys commands, Oriented to person, place, time, situation. Cardiovascular: No deficits noted. Capillary refill < 3 seconds Patient's skin is warm and dry. Respiratory: No deficits noted. Airway is patent Respiratory effort is even, unlabored, Respiratory pattern is regular, symmetrical. GI: Abdomen is flat, non-distended, Stools are reported to be patient C/O dark streaking blood in stool. Reports lower abdominal pain, upper abdominal pain. : No deficits noted. No signs and/or symptoms were reported regarding the genitourinary system. EENT: No deficits noted. No signs and/or symptoms were reported regarding the EENT system. Derm: No deficits noted. No signs and/or symptoms reported regarding the dermatologic system. 06/09 00:30 Reassessment: Patient appears in no apparent distress at this time. Patient and/or pf1 family updated on plan of care and expected duration. Pain level reassessed. Patient is alert, oriented x 3, equal unlabored respirations, skin warm/dry/pink. Patient states feeling better. 01:30 Reassessment: Patient appears in no apparent distress at this time. Patient and/or pf1 family updated on plan of care and expected duration. Pain level reassessed. Patient is alert, oriented x 3, equal unlabored respirations, skin warm/dry/pink. Patient states symptoms have improved. 02:30 Reassessment: Patient appears in no apparent distress at this time. Patient and/or pf1 family updated on plan of care and expected duration. Pain level reassessed. Patient is alert, oriented x 3, equal unlabored respirations, skin warm/dry/pink. Patient states feeling better. Patient states symptoms have improved. 02:53 Reassessment: Dr. To notified of FSBGL 54, ordered to provided patient with orange pf1 juice. 02:55 Reassessment: Patient tolerated 8 oz of orange juice. pf1 Vital Signs: 06/08 22:39 BP 135 / 78; Pulse 65; Resp 18 S; Temp 98.8(TE); Pulse Ox 100% on R/A; Weight 61.23 kg as6 (R); Height 5 ft. 3 in. (R); Pain 8/10; 06/09 00:30 BP 119 / 85; Pulse 55; Resp 16; Pulse Ox 98% on R/A; Pain 9/10; pf1 01:30 BP 127 / 70; Pulse 57; Resp 16; Pulse Ox 100% on R/A; Pain 5/10; pf1 02:30 BP 128 / 77; Pulse 89; Resp 16; Temp 98.2; Pulse Ox 97% on R/A; Pain 4/10; pf1 06/08 22:39 Body Mass Index 23.91 (61.23 kg, 160.02 cm) as6 06/08 22:39 Pain Scale: Adult as6 06/09 00:30 Pain Scale: Adult pf1 01:30 Pain Scale: Adult pf1 02:30 Pain Scale: Adult pf1 ED Course: 06/08 22:12 Patient arrived in ED. mr 22:33 Tianna To MD is Attending Physician. sp3 22:41 Triage completed. as6 22:41 Arm band placed on. as6 23:00 Patient has correct armband on for positive identification. Bed in low position. Call pf1 light in reach. 23:20 No provider procedures requiring assistance completed. Missed attempt(s): 22 gauge in pf1 right antecubital area. 23:29 CBC with Diff Sent. pf1 23:29 CMP Sent. pf1 23:29 Lipase Sent. pf1 23:29 Urinalysis w/ reflexes Sent. pf1 23:30 Missed attempt(s): 22 gauge in left wrist. pf1 23:44 Radiology exam delayed due to lab results not completed at this time. (BUN/Creatinine) eh4 IV insertion attempt and/or patient not having appropriate IV at this time. 06/09 00:06 Inserted saline lock: 22 gauge in right wrist, using aseptic technique. Blood collected.pf1 00:20 Accessed midline 18g 10cm to R upper arm,inserted by CAR Vela. using ,sterile pf1 technique, per hospital protocol. 01:16 CMP Sent. pf1 01:16 Lipase Sent. pf1 01:44 CT Abd/Pelvis - IV Contrast Only: PO contrast for gastric bypass portion In Process EDMS Unspecified. 03:06 IV discontinued, intact, bleeding controlled, No redness/swelling at site. Pressure pf1 dressing applied. 03:08 Provided Education on: follow up. pf1 Administered Medications: 00:30 Drug: NS 0.9% IV 1000 ml IV at 1 bolus Per protocol; 1000 mL bolus Route: IV; Rate: 1 pf1 bolus; Site: right upper arm; 01:30 Follow up: Response: No adverse reaction; Marked relief of symptoms pf1 01:30 Follow up: Response: No adverse reaction; Marked relief of symptoms; IV Status: pf1 Completed infusion; IV Intake: 1000ml 00:30 Drug: Ondansetron IVP 4 mg IVP once; over 2 minutes Route: IVP; Site: right upper arm; pf1 01:30 Follow up: Response: No adverse reaction; Marked relief of symptoms pf1 00:30 Drug: HYDROmorphone IVP 1 mg IVP once Route: IVP; Site: right upper arm; pf1 01:30 Follow up: Response: No adverse reaction; Marked relief of symptoms; Pain is decreased; pf1 RASS: Alert and Calm (0) 01:38 Drug: Insulin Regular Human IVP 10 units IVP once {Co-Signature: tm6 (Dawna Lazaro pf1 RN).} Route: IVP; Site: right wrist; 02:30 Follow up: Response: No adverse reaction; Blood sugar is lowered pf1 02:45 Drug: HYDROmorphone IVP 1 mg IVP once Route: IVP; Site: right wrist; pf1 03:07 Follow up: Response: No adverse reaction; Marked relief of symptoms; Pain is decreased; pf1 RASS: Alert and Calm (0) Medication: 03:08 VIS not applicable for this client. pf1 Intake: 01:30 IV: 1000ml; Total: 1000ml. pf1 Outcome: 02:54 Discharge ordered by . sp3 03:07 Discharged to home via wheelchair, with family, pf1 03:07 Condition: improved 03:07 Discharge instructions given to patient, family, Instructed on discharge instructions, follow up and referral plans. Demonstrated understanding of instructions, follow-up care, 03:08 Patient left the ED. pf1 04:56 Patient left the ED. pf1 Signatures: Dispatcher [employer] EDMS Nereyda Mai, Reg Reg mr ToTianna MD MD sp3 Dane Knott, RN RN as6 Aime Perry 4 Jessica Stewart RN RN pf1 Dawna Lazaro RN tm6
--- NOTE | 2023-06-09 02:55 | EDPHYS ---
Physician Documentation [facility] Name: Morena Bajwa Age: 53 yrs Sex: Female : 1970 Arrival Date: 06/08/2023 Time: 22:10 Bed 20 Private MD: ED Physician Tianna To HPI: 06/08 23:02 This 53 yrs old Female presents to ER via Ambulatory with complaints of Bloody sp3 Stools, Abdominal Pain, Nausea. 23:02 53-year-old female with history of chronic abdominal pain, gastric bypass Dagmar-en-Y sp3 with multiple complications including 1 week hospital stay at [facility] after transfer from here secondary to infection now presents to the ED for recurrent epigastric abdominal pain for the last 3 to 4 days increasing in severity. She also states that she has had some bloody stools similar to her last episode. She denies any vomiting, rash, other bleeding, headache, chest pain, shortness of breath, back pain, or any other signs or symptoms on ROS at this time.. 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 - Social history:: Smoking status: Reported history of juuling and/or vaping. ROS: 23:03 Constitutional: Negative for fever, chills, and weight loss, Eyes: Negative for injury, sp3 pain, redness, and discharge, ENT: Negative for injury, pain, and discharge, Neck: Negative for injury, pain, and swelling, Cardiovascular: Negative for chest pain, palpitations, and edema, Respiratory: Negative for shortness of breath, cough, wheezing, and pleuritic chest pain, Back: Negative for injury and pain, MS/Extremity: Negative for injury and deformity, Skin: Negative for injury, rash, and discoloration, Neuro: Negative for headache, weakness, numbness, tingling, and seizure, Psych: Negative for depression, anxiety, suicide ideation, homicidal ideation, and hallucinations, Allergy/Immunology: Negative for hives, rash, and allergies, Endocrine: Negative for neck swelling, polydipsia, polyuria, polyphagia, and marked weight changes, Hematologic/Lymphatic: Negative for swollen nodes, abnormal bleeding, and unusual bruising, 23:03 All other systems are negative, Exam: 23:04 Constitutional: This is a well developed, well nourished patient who is awake, alert, sp3 and in no acute distress. Head/Face: Normocephalic, atraumatic. Eyes: Pupils equal round and reactive to light, extra-ocular motions intact. Lids and lashes normal. Conjunctiva and sclera are non-icteric and not injected. Cornea within normal limits. Periorbital areas with no swelling, redness, or edema. ENT: Nares patent. No nasal discharge, no septal abnormalities noted. External auditory canals are clear. Oropharynx with no redness, swelling, or masses, exudates, or evidence of obstruction, uvula midline. Mucous membranes moist. Neck: Trachea midline, no thyromegaly or masses palpated, and no cervical lymphadenopathy. Supple, full range of motion without nuchal rigidity, or vertebral point tenderness. No Meningismus. Chest/axilla: Normal chest wall appearance and motion. Nontender with no deformity. No lesions are appreciated. Cardiovascular: Regular rate and rhythm with a normal S1 and S2. No gallops, murmurs, or rubs. Normal PMI, no JVD. No pulse deficits. Respiratory: Lungs have equal breath sounds bilaterally, clear to auscultation and percussion. No rales, rhonchi or wheezes noted. No increased work of breathing, no retractions or nasal flaring. Back: No spinal tenderness. No costovertebral tenderness. Full range of motion. Skin: Warm, dry with normal turgor. Normal color with no rashes, no lesions, and no evidence of cellulitis. MS/ Extremity: Pulses equal, no cyanosis. Neurovascular intact. Full, normal range of motion. Neuro: Awake and alert, GCS 15, oriented to person, place, time, and situation. Cranial nerves II-XII grossly intact. Motor strength 5/5 in all extremities. Sensory grossly intact. Cerebellar exam normal. Normal gait. Psych: Awake, alert, with orientation to person, place and time. Behavior, mood, and affect are within normal limits. 23:04 Abdomen/GI: Pain to palpation in the epigastric region without peritoneal signs, rebound or guarding., Vital Signs: 22:39 BP 135 / 78; Pulse 65; Resp 18 S; Temp 98.8(TE); Pulse Ox 100% on R/A; Weight 61.23 kg as6 (R); Height 5 ft. 3 in. (R); Pain 8/10; 06/09 00:30 BP 119 / 85; Pulse 55; Resp 16; Pulse Ox 98% on R/A; Pain 9/10; pf1 01:30 BP 127 / 70; Pulse 57; Resp 16; Pulse Ox 100% on R/A; Pain 5/10; pf1 02:30 BP 128 / 77; Pulse 89; Resp 16; Temp 98.2; Pulse Ox 97% on R/A; Pain 4/10; pf1 06/08 22:39 Body Mass Index 23.91 (61.23 kg, 160.02 cm) as6 06/08 22:39 Pain Scale: Adult as6 06/09 00:30 Pain Scale: Adult pf1 01:30 Pain Scale: Adult pf1 02:30 Pain Scale: Adult pf1 MDM: 06/08 22:45 Patient medically screened. sp3 23:04 Data reviewed: vital signs, nurses notes, old medical records, lab test result(s), sp3 radiologic studies. ED course: 53-year-old female with complex surgical and past medical history regarding her gastric bypass Dagmar-en-Y. We will obtain CT scan of the abdomen and pelvis, laboratory values and administer pain and nausea control. Disposition pending workup and patient course. Consider enteritis versus anastomotic leak versus other surgical complication.. 06/09 02:53 ED course: CT scan demonstrates no acute abnormality and no interval change from prior. sp3 Laboratory values are within normal limits. Blood sugar is now down to 54 and we will ensure that it comes up to normal range. When sugar stabilized, we will safely discharge patient home.. 06/08 22:53 Order name: CBC with Diff; Complete Time: 01:18 sp3 06/08 22:53 Order name: CMP; Complete Time: 01:18 sp3 06/08 22:53 Order name: Lipase; Complete Time: 01:18 sp3 12/21 22:53 Order name: Urinalysis w/ reflexes; Complete Time: 01:18 sp3 06/09 02:53 Order name: Glucose, Ancillary Testing; Complete Time: 02:53 EDMS 06/08 22:53 Order name: CT Abd/Pelvis - IV Contrast Only: PO contrast for gastric bypass portion sp3 06/08 22:53 Order name: IV Saline Lock; Complete Time: 01:16 sp3 06/08 22:53 Order name: Labs collected and sent; Complete Time: 23:29 sp3 Administered Medications: 00:30 Drug: NS 0.9% IV 1000 ml IV at 1 bolus Per protocol; 1000 mL bolus Route: IV; Rate: 1 pf1 bolus; Site: right upper arm; 01:30 Follow up: Response: No adverse reaction; Marked relief of symptoms pf1 01:30 Follow up: Response: No adverse reaction; Marked relief of symptoms; IV Status: pf1 Completed infusion; IV Intake: 1000ml 00:30 Drug: Ondansetron IVP 4 mg IVP once; over 2 minutes Route: IVP; Site: right upper arm; pf1 01:30 Follow up: Response: No adverse reaction; Marked relief of symptoms pf1 00:30 Drug: HYDROmorphone IVP 1 mg IVP once Route: IVP; Site: right upper arm; pf1 01:30 Follow up: Response: No adverse reaction; Marked relief of symptoms; Pain is decreased; pf1 RASS: Alert and Calm (0) 01:38 Drug: Insulin Regular Human IVP 10 units IVP once {Co-Signature: tm6 (Dawna Lazaro pf1 RN).} Route: IVP; Site: right wrist; 02:30 Follow up: Response: No adverse reaction; Blood sugar is lowered pf1 02:45 Drug: HYDROmorphone IVP 1 mg IVP once Route: IVP; Site: right wrist; pf1 03:07 Follow up: Response: No adverse reaction; Marked relief of symptoms; Pain is decreased; pf1 RASS: Alert and Calm (0) Disposition Summary: 06/09/23 02:54 Discharge Ordered Notes: Location: Home sp3 Condition: Stable sp3 Diagnosis - Abdominal pain, hyperglycemia resolved sp3 Followup: sp3 - With: Private Physician - When: Upon discharge from the Emergency Department - Reason: Continuance of care Discharge Instructions: - Discharge Summary Sheet sp3 - Abdominal Pain, Adult sp3 Forms: - Medication Reconciliation Form sp3 - Thank You Letter sp3 - Antibiotic Education sp3 - Prescription Opioid Use sp3 - Patient Portal Instructions sp3 - Leadership Thank You Letter sp3 Signatures: Dispatcher [employer] Tianna Buckley MD MD sp3 Dane Knott RN RN as6 Jessica Stewart RN RN pf1 Dawna Lazaro RN tm6
[2023-06-09 06:42] VITALS: BP 128/77; TEMP 98.2; O2SAT 97
--- NOTE | 2023-06-09 14:49 | RAD REPORT ---
EXAM DESCRIPTION: CT - Abdomen Pelvis W Contrast - 06/09/2023 6:38 am CLINICAL HISTORY: Abd pain, dark stools, bypass sx complications TECHNIQUE: Contiguous axial images obtained through the abdomen and pelvis following the uneventful administration of IV contrast. Coronal and sagittal reformatted images were provided. This exam was performed according to our departmental dose-optimization program, which includes autom ated exposure control, adjustment of the mA and/or kV according to patient size and/or use of iterati ve reconstruction technique. COMPARISON: April 03 FINDINGS: Lung bases: Clear Liver: Unremarkable Gallbladder and biliary system: Status post cholecystectomy with intra and extrahepatic bile duct dil atation, similar to the prior examination. Correlation with LFTs may be helpful.. Pancreas: Unremarkable Spleen: Unremarkable Adrenals: Unremarkable Kidneys: Normal renal cortical enhancement. No calculi. No hydronephrosis. GI: Surgical changes status post gastric bypass. There is a small amount of oral contrast in the stom ach. Oral contrast is also seen within nondilated segments of small bowel. No bowel obstruction. No a ppreciable bowel mucosal thickening. Appendix: No findings to suggest acute appendicitis. Urinary bladder: Unremarkable Reproductive: Status post hysterectomy. Lymph nodes: No pathologically enlarged lymph nodes. Peritoneum: No focal fluid collection. No free air. Vessels: No abdominal aortic aneurysm. Abdominal wall: Unremarkable Bones: Unremarkable IMPRESSION: 1. No acute intra-abdominal or pelvic disease. 2. Status post cholecystectomy with intra and extrahepatic bile duct dilatation, similar to the bong or examination. Correlation with LFTs may be helpful. 3. Surgical changes status post gastric bypass. No bowel obstruction. No significant interval watson e since the prior examination. 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 The interpreting radiologist is fully responsible for the content of the report.
== END ==
LOC: ER 22:10
DX: R10.13 Epigastric pain (principal); Z98.84 Bariatric surgery status; Z96.652 Presence of left artificial knee joint
CPT/HCPCS: 85025; 36415; 81003; 83690; 80053; 74177; 99285; Q9967; J1170; J2405; J7030

== ENCOUNTER → 2023-08-26 | Emergency (ER) | payer OTHER ==
[~2023-08-26] MED LIST changes: +FAMOTIDINE 20 MG/2 ML VIAL IV ONE; -HYDROMORPHONE HCL 1 MG/ML INJ ONE; -INSULIN REGULAR (HUMAN) 100 UNIT/ML ONE; +MORPHINE 4 MG/ML SYR ONE
[2023-08-26 14:28] LABS: Absolute Eosinophils 0.1 K/uL (0-0.5); Absolute Lymphocytes (CBC) 0.7 K/uL (0.7-4.9); Basophils % 0.3 % (0-1.3); Hematocrit 35.7 % (36.0-45.0); Lymphocytes % 6.5 % (15.3-44.8); MCV 99.7 fL (80-100); MPV 7.3 fL (7.6-11.3); Platelets 349 thou/uL (152-406); RBC Red Blood Cell Count 3.58 M/uL (3.86-4.86)
[2023-08-26 14:41] LABS: SARS-CoV-2 Antigen Rapid Res Negative (Negative)
[2023-08-26 14:46] LABS: Albumin 3.3 g/dL (3.4-5.0); Albumin/Globulin Ratio 0.9 (1.1-1.8); Anion Gap 7.6 mEq/L (5.0-15.0); Bilirubin Total 0.4 mg/dL (0.2-1.0); Globulin 3.6 g/dL (2.3-3.5); Potassium 3.6 mEq/L (3.5-5.1); Protein, Total 6.9 g/dL (6.4-8.2)
--- NOTE | 2023-08-26 15:16 | RAD REPORT ---
EXAM DESCRIPTION: CTAbdomen Pelvis W Contrast - 08/26/2023 3:02 pm CLINICAL HISTORY: ABD PAIN COMPARISON: Abdomen Pelvis W Contrast dated 06/09/2023; Abdomen Pelvis W Contrast dated 04/03/20 23; Abdomen Pelvis W Contrast dated 04/28/2022; CT ABD PELVIS W CONTRAST dated 09/24/2014 TECHNIQUE: CT of the abdomen and pelvis was performed with IV contrast. All CT scans are performed using dose optimization technique as appropriate and may include automated exposure control or mA/KV adjustment according to patient size. FINDINGS: Lower chest: No acute abnormality. Liver: No acute abnormality or suspicious lesions. Biliary: Cholecystectomy. Similar intra and extrahepatic biliary duct dilatation compared with prior. Stomach: Dagmar-en-Y gastric bypass. Duodenum: No significant focal abnormality. Pancreas: No significant abnormality. Spleen: No significant abnormality. Adrenal: No suspicious lesions. Kidney/ureter: No hydronephrosis. No renal calculi. 16 mm right upper pole solid renal lesion Retroperitoneum: No retroperitoneal adenopathy. Vascular: No aneurysm. Bowel: No significant focal abnormality. Peritoneum: No ascites or free air. Bladder: Grossly unremarkable. Reproductive: No adnexal masses. Bones: No acute fracture. Grade 1 anterolisthesis of L5 on S1. Other: n/a IMPRESSION: No acute intra-abdominal or pelvic finding. Similar intra- and extrahepatic biliary duct dilatation which may be related to the postcholecystectomy state. Overall, no significant change com pared with 06/09/2023 . Solid 16 mm right upper pole renal lesion which is present in retrospect but better seen on today's C T. Recommend urologic referral .
[2023-08-26 15:42] LABS: Specific Gravity 1.008 (1.005-1.030); Urine Bilirubin NEGATIVE (Negative); Urine Blood Negative (Negative); Urine Clarity Clear (Clear); Urine Color Colorless (Yellow); Urine Glucose NEGATIVE (Negative); Urine Protein NEGATIVE (Negative); Urine Urobilinogen Normal (Normal)
--- NOTE | 2023-08-26 15:49 | ER ---
Nurse's Notes [facility] Name: Morena Bajwa Age: 53 yrs Sex: Female : 1970 Arrival Date: 08/26/2023 Time: 13:17 Bed 15 Private MD: Diagnosis: Nausea with vomiting, unspecified Presentation: 08/25 13:30 Chief complaint: Patient states: Abdominal pain along with vomiting since yesterday. No nj1 diarrhea. Chills. Coronavirus screen: Vaccine status: Patient reports receiving the 2nd dose of the covid vaccine. Ebola Screen: Patient denies travel to an Ebola-affected area in the 21 days before illness onset. Initial Sepsis Screen: Does the patient meet any 2 criteria? HR > 90 bpm. No. Patient's initial sepsis screen is negative. Does the patient have a suspected source of infection? No. Patient's initial sepsis screen is negative. Risk Assessment: Do you want to hurt yourself or someone else? Patient reports no desire to harm self or others. Onset of symptoms was August 25, 2023. 13:30 Method Of Arrival: Ambulatory [facility] 13:30 Acuity: LAUREN 3 nj1 Historical: - Allergies: 13:45 No Known Allergies; nj1 - PMHx: 13:45 Anxiety; Chronic pain; Depression; GERD; ULCER; nj1 - PSHx: 13:45 Appendectomy; back surgery; bilateral rotator cuff repair; Cholecystectomy; Gastric nj1 Bypass; Knee Replacement-left; Total abdominal hysterectomy; - Immunization history:: Client reports receiving the 2nd dose of the Covid vaccine. - Social history:: Smoking status: Patient/guardian denies using tobacco, Stopped _ months ago 1. Screenin:18 [facility] ED Fall Risk Assessment (Adult) History of falling in the last 3 months, db including since admission No falls in past 3 months (0 pts) Confusion or Disorientation No (0 pts) Intoxicated or Sedated No (0 pts) Impaired Gait No (0 pts) Mobility Assist Device Used No (0 pt) Altered Elimination No (0 pt) Score/Fall Risk Level 0 - 2 = Low Risk Oriented to surroundings, Maintained a safe environment. Abuse screen: Denies threats or abuse. Denies injuries from another. Nutritional screening: No deficits noted. Tuberculosis screening: No symptoms or risk factors identified. Assessment: 13:30 Reassessment: Patient appears in no apparent distress at this time. Patient and/or db family updated on plan of care and expected duration. Pain level reassessed. Patient is alert, oriented x 3, equal unlabored respirations, skin warm/dry/pink. PT AMBULATORY TO ROOM. General: Appears in no apparent distress. comfortable, Behavior is calm, cooperative. 14:00 Pain: Complains of pain in abdomen and epigastric area. Neuro: Level of Consciousness db is awake, alert, obeys commands, Oriented to person, place, time, situation. GI: Abdomen is flat, distended. 16:16 Reassessment: Patient appears in no apparent distress at this time. Patient and/or db family updated on plan of care and expected duration. Pain level reassessed. Patient is alert, oriented x 3, equal unlabored respirations, skin warm/dry/pink. Patient states feeling better. Patient states symptoms have improved. General: Appears in no apparent distress. Respiratory: Airway is patent Respiratory effort is even, unlabored, Respiratory pattern is regular, symmetrical. Vital Signs: 13:30 BP 106 / 67; Pulse 99; Resp 16; Temp 99(O); Pulse Ox 100% on R/A; Weight 99.79 kg; nj1 Height 5 ft. 3 in. ; Pain 8/10; 14:09 BP 105 / 80; Pulse 60; Resp 18; Pulse Ox 100% on R/A; db 15:20 BP 117 / 71; Pulse 59; Resp 18; Pulse Ox 99% on R/A; db 16:00 BP 114 / 76; Pulse 55; Resp 16; Pulse Ox 100% on R/A; db 13:30 Body Mass Index 38.97 (99.79 kg, 160.02 cm) nv1 13:30 Pain Scale: Adult [facility] ED Course: 13:19 Patient arrived in ED. ra3 13:21 Mercedes Johnson FNP [facility] jh7 13:21 Kenneth Zuniga MD is Attending Physician. 7 13:30 Kristie Rosales, RN is Primary Nurse. db 13:45 Triage completed. nj1 13:46 Arm band placed on. nj1 14:12 Initial lab(s) drawn, by ok, sent to lab. Inserted saline lock: 22 gauge in right hb wrist, using aseptic technique. Blood collected. 14:13 CBC with Diff Sent. hb 14:13 CMP Sent. hb 14:13 Lipase Sent. hb 14:18 COVID swab sent to lab. Flu and/or RSV swab sent to lab. db 15:04 CT Abd/Pelvis - IV Contrast Only In Process Unspecified. EDMS 16:17 Patient has correct armband on for positive identification. Bed in low position. Call db light in reach. Side rails up X 1. Provided Education on: discharge and FOLLOWUP. Pulse ox on. NIBP on. Warm blanket given. 16:17 No provider procedures requiring assistance completed. IV discontinued, intact, db bleeding controlled, No redness/swelling at site. Administered Medications: 14:18 Drug: NS 0.9% IV 1000 ml IV at 1 bolus Per protocol; 1000 mL bolus Route: IV; Rate: 1 db bolus; Site: right wrist; 15:30 Follow up: Response: No adverse reaction; IV Status: Completed infusion; IV Intake: db 1000ml 14:18 Drug: Famotidine IVP 20 mg IVP once; dilute with 10 mL 0.9% NaCl; give over 2 minutes db Route: IVP; Site: right wrist; 16:19 Follow up: Response: No adverse reaction db 14:18 Drug: Ondansetron IVP 4 mg IVP once; over 2 minutes Route: IVP; Site: right wrist; db 16:19 Follow up: Response: No adverse reaction db 15:27 Drug: morphine IVP or IV 4 mg IVP once over 4 mins Route: IVP; Infused Over: 4 mins; db Site: right wrist; 16:19 Follow up: Response: No adverse reaction; Pain is decreased db Medication: 16:17 VIS not applicable for this client. db Intake: 15:30 IV: 1000ml; Total: 1000ml. db Outcome: 15:49 Discharge ordered by MD. wadsworth 16:17 Discharged to home ambulatory, with family, db 16:17 Condition: stable 16:17 Discharge instructions given to patient, Instructed on discharge instructions, follow up and referral plans. Prescriptions given X 2, 16:19 Patient left the ED. db Signatures: Dispatcher [employer] EDSC Pauline Bergeron RN RN Mercedes Johnson, SUPERVISOR COLOR MAKING SUPERVISOR COLOR MAKING 7 Kristie Rosales RN RN db Hollie Henson RN RN nv1 Estrellita Powell ra3
--- NOTE | 2023-08-26 15:49 | EDPHYS ---
Physician Documentation [facility] Name: Morena Bajwa Age: 53 yrs Sex: Female : 1970 Arrival Date: 08/26/2023 Time: 13:17 Bed 15 Private MD: ED Physician Kenneth Zuniga HPI: 08/25 13:30 This 53 yrs old Female presents to ER via Ambulatory with complaints of jh7 Vomiting. 13:30 The patient presents to the emergency department with nausea, vomiting, abdominal pain. jh7 Onset: The symptoms/episode began/occurred yesterday. Possible causes: unknown. Associated signs and symptoms: Pertinent positives: fever, Pertinent negatives: diarrhea, dysuria, hematuria. Patient denies any coffee-ground emesis, blood in the stool, and urinary symptoms. Reports a fever of 101 at home. History of a peptic ulcer. No PCP.. Historical: - Allergies: 13:45 No Known Allergies; nj1 - PMHx: 13:45 Anxiety; Chronic pain; Depression; GERD; ULCER; nj1 - PSHx: 13:45 Appendectomy; back surgery; bilateral rotator cuff repair; Cholecystectomy; Gastric nj1 Bypass; Knee Replacement-left; Total abdominal hysterectomy; - Immunization history:: Client reports receiving the 2nd dose of the Covid vaccine. - Social history:: Smoking status: Patient/guardian denies using tobacco, Stopped _ months ago 1. ROS: 13:30 Eyes: Negative for injury, pain, redness, and discharge, ENT: Negative for injury, jh7 pain, and discharge, Neck: Negative for injury, pain, and swelling, Cardiovascular: Negative for chest pain, palpitations, and edema, Respiratory: Negative for shortness of breath, cough, wheezing, and pleuritic chest pain, Back: Negative for injury and pain, MS/Extremity: Negative for injury and deformity, Skin: Negative for injury, rash, and discoloration, Neuro: Negative for headache, weakness, numbness, tingling, and seizure, 13:30 Constitutional: Positive for fever, 13:30 Abdomen/GI: Positive for abdominal pain, nausea and vomiting, Negative for diarrhea, constipation, hematemesis, black/tarry stool, rectal pain, rectal bleeding, 13:30 All other systems are negative, Exam: 13:30 Constitutional: This is a well developed, well nourished patient who is awake, alert, jh7 and in no acute distress. Head/Face: Normocephalic, atraumatic. Eyes: Pupils equal round and reactive to light, extra-ocular motions intact. Lids and lashes normal. Conjunctiva and sclera are non-icteric and not injected. Cornea within normal limits. Periorbital areas with no swelling, redness, or edema. Neck: Trachea midline, no thyromegaly or masses palpated, and no cervical lymphadenopathy. Supple, full range of motion without nuchal rigidity, or vertebral point tenderness. No Meningismus. Cardiovascular: Regular rate and rhythm with a normal S1 and S2. No gallops, murmurs, or rubs. Normal PMI, no JVD. No pulse deficits. Respiratory: Lungs have equal breath sounds bilaterally, clear to auscultation and percussion. No rales, rhonchi or wheezes noted. No increased work of breathing, no retractions or nasal flaring. Back: No spinal tenderness. No costovertebral tenderness. Full range of motion. Skin: Warm, dry with normal turgor. Normal color with no rashes, no lesions, and no evidence of cellulitis. MS/ Extremity: Pulses equal, no cyanosis. Neurovascular intact. Full, normal range of motion. Neuro: Awake and alert, GCS 15, oriented to person, place, time, and situation. Motor strength 5/5 in all extremities. Sensory grossly intact. Normal gait. 13:30 Abdomen/GI: Inspection: abdomen appears normal, Bowel sounds: normal, Palpation: soft, mild abdominal tenderness, in the epigastric area, Vital Signs: 13:30 BP 106 / 67; Pulse 99; Resp 16; Temp 99(O); Pulse Ox 100% on R/A; Weight 99.79 kg; nj1 Height 5 ft. 3 in. ; Pain 8/10; 14:09 BP 105 / 80; Pulse 60; Resp 18; Pulse Ox 100% on R/A; db 15:20 BP 117 / 71; Pulse 59; Resp 18; Pulse Ox 99% on R/A; db 16:00 BP 114 / 76; Pulse 55; Resp 16; Pulse Ox 100% on R/A; db 13:30 Body Mass Index 38.97 (99.79 kg, 160.02 cm) [facility] 13:30 Pain Scale: Adult nj1 MDM: 13:21 Patient medically screened. [facility] 15:48 Differential diagnosis: Nonspecific abd pain, gastritis, pancreatitis, viral [facility] gastroenteritis, gastroenteritis. Data reviewed: vital signs, nurses notes, lab test result(s), radiologic studies, CT scan. I considered the following discharge prescriptions or medication management in the emergency department Medications were administered in the Emergency Department. See MAR. Counseling: I had a detailed discussion with the patient and/or guardian regarding the historical points, exam findings, and any diagnostic results supporting the discharge/admit diagnosis, to return to the emergency department if symptoms worsen or persist or if there are any questions or concerns that arise at home. Response to treatment: the patient's symptoms have markedly improved after treatment. 08/25 13:43 Order name: CBC with Diff; Complete Time: 14:41 [facility] 08/25 13:43 Order name: CMP; Complete Time: 14:47 [facility] 08/25 13:43 Order name: Lipase; Complete Time: 14:47 [facility] 08/25 13:43 Order name: Urinalysis w/ reflexes; Complete Time: 15:48 [facility] 08/25 13:43 Order name: Flu; Complete Time: 14:50 [facility] 08/25 13:43 Order name: SARS RAPID; Complete Time: 14:47 [facility] 08/25 13:43 Order name: CT Abd/Pelvis - IV Contrast Only; Complete Time: 15:26 [facility] 08/25 13:43 Order name: IV Saline Lock; Complete Time: 14:13 [facility] 08/25 13:43 Order name: Labs collected and sent; Complete Time: 14:13 [facility] Administered Medications: 14:18 Drug: NS 0.9% IV 1000 ml IV at 1 bolus Per protocol; 1000 mL bolus Route: IV; Rate: 1 db bolus; Site: right wrist; 15:30 Follow up: Response: No adverse reaction; IV Status: Completed infusion; IV Intake: db 1000ml 14:18 Drug: Famotidine IVP 20 mg IVP once; dilute with 10 mL 0.9% NaCl; give over 2 minutes db Route: IVP; Site: right wrist; 16:19 Follow up: Response: No adverse reaction db 14:18 Drug: Ondansetron IVP 4 mg IVP once; over 2 minutes Route: IVP; Site: right wrist; db 16:19 Follow up: Response: No adverse reaction db 15:27 Drug: morphine IVP or IV 4 mg IVP once over 4 mins Route: IVP; Infused Over: 4 mins; db Site: right wrist; 16:19 Follow up: Response: No adverse reaction; Pain is decreased db Disposition Summary: 08/26/23 15:49 Discharge Ordered Notes: Location: Home [facility] Problem: new [facility] Symptoms: have improved [facility] Condition: Stable [facility] Diagnosis - Nausea with vomiting, unspecified [facility] Followup: [facility] - With: Private Physician - When: 2 - 3 days - Reason: Recheck today's complaints Discharge Instructions: - Discharge Summary Sheet [facility] - Nausea and Vomiting, Adult [facility] Forms: - Medication Reconciliation Form [facility] - Thank You Letter [facility] - Patient Portal Instructions [facility] - Leadership Thank You Letter [facility] Prescriptions: - ondansetron 8 mg Oral Tablet,disintegrating - take 1 tablet ORAL route every 4-6 hours As needed; 20 tablet; Refills: 0, [facility] Product Selection Permitted - Levsin 0.125 mg Oral Tablet - take 1 tablet ORAL route every 8 hours; 30 tablet; Refills: 0, Product [facility] Selection Permitted Signatures: Dispatcher [employer] Mercedes Miner BUNDLER SEASONAL GREENERY BUNDLER SEASONAL GREENERY [facility] Kristie Rosales, RN RN Hollie Rincon RN RN nj1
[2023-08-26 16:42] VITALS: BP 101/68; TEMP 98.5; O2SAT 96
== END ==
LOC: ER 13:17
DX: R11.2 Nausea with vomiting, unspecified (principal); R50.9 Fever, unspecified; R10.13 Epigastric pain; Z11.52 Encounter for screening for COVID-19
CPT/HCPCS: 96361; 85025; 36415; 81003; 83690; 80053; 87804 ×2; 74177; 96375; 96374; 99284; 87811; Q9967; J2405; J7030

== ENCOUNTER 2023-10-02 17:55 | Emergency (ER) | payer OTHER ==
--- NOTE | 2023-10-02 19:49 | RAD REPORT ---
[facility] DES[facility] 7[facility]23 pm CLINICAL HISTORY: COUGH COMPARISON: Chest Single View dated 04/28/2022; CHEST SINGLE VIEW dated 12/24/2014; CHEST SINGLE VIEW dated 12/23/2014; CHEST PA AND LAT 2 VIEW dated 09/24/2014 TECHNIQUE: Portable AP view of the chest. FINDINGS: The lungs are clear. No pneumothorax or effusion. The cardiomediastinal contours are unre markable. IMPRESSION: No acute cardiopulmonary process.
[2023-10-02] MEDS ORDERED: KETOROLAC 30 MG/ML INJ ONE (20:20)
[2023-10-02 20:27] LABS: Specific Gravity 1.005 (1.005-1.030); Sqamous Epithelial <5 /HPF (None Seen); Urine Bacteria <20 /HPF (<20); Urine Bilirubin NEGATIVE (Negative); Urine Blood Negative (Negative); Urine Clarity Clear (Clear); Urine Color Colorless (Yellow); Urine Crystals Unidentified Few /HPF (None Seen); Urine Culture Reflex Order NOT NEEDED; Urine Glucose NEGATIVE (Negative); Urine Ketones NEGATIVE (Negative); Urine Microscopic Reflex YN ORDER UMIC; Urine Nitrite NEGATIVE (Negative); Urine Protein NEGATIVE (Negative); Urine RBC <5 /HPF (None Seen); Urine Urobilinogen Normal (Normal); Urine WBC <5 /HPF (<5); Urine pH 6.5 (5.0-7.0)
[2023-10-02 20:38] LABS: Absolute Eosinophils 0.1 K/uL (0-0.5); Absolute Lymphocytes (CBC) 0.8 K/uL (0.7-4.9); Absolute Monocytes 0.6 K/uL (0.1-1.3); Absolute Neutrophil 7.3 K/uL (1.8-8.0); Basophils % 0.2 % (0-1.3); Eosinophils % 0.7 % (0-4.4); Hemoglobin 12.2 g/dL (12.0-15.0); MCH 33.8 pg (27.0-35.0); MCHC 33.8 g/dL (32.0-36.0); MCV 99.9 fL (80-100); MPV 7.6 fL (7.6-11.3); Monocytes % 7.1 % (3.3-12.3); Platelets 349 thou/uL (152-406); RBC Red Blood Cell Count 3.61 M/uL (3.86-4.86); Red Cell Distribution Width 13.9 % (12.1-15.2)
[2023-10-02 20:41] LABS: Albumin 3.5 g/dL (3.4-5.0); Albumin/Globulin Ratio 0.9 (1.1-1.8); Bilirubin Total 0.3 mg/dL (0.2-1.0); Globulin 3.9 g/dL (2.3-3.5); Protein, Total 7.4 g/dL (6.4-8.2)
--- NOTE | 2023-10-02 22:23 | RAD REPORT ---
EXAM DESCRIPTION: CT - Abdomen Pelvis W Contrast - 10/02/2023 9:14 pm CLINICAL HISTORY: ABD PAIN COMPARISON: Abdomen Pelvis W Contrast dated 08/26/2023; Abdomen Pelvis W Contrast dated 06/09/2023 ; Abdomen Pelvis W Contrast dated 04/03/2023; Abdomen Pelvis W Contrast dated 04/28/2022 TECHNIQUE: Thin cut axial CT imaging of the abdomen and pelvis was performed following intravenous a dministration of iodinated contrast. Multiplanar reformats were generated and reviewed. All CT scans are performed using dose optimization technique as appropriate and may include automated exposure control or mA/KV adjustment according to patient size. FINDINGS: No suspicious findings in the lung bases. Liver, spleen, adrenal glands, and pancreas show no suspicious findings. Gallbladder was surgically r emoved. Stable prominence of the common bile duct. Symmetric renal function is seen with no hydronephrosis or suspicious renal mass. Sequelae of Dagmar-en-Y gastric bypass again seen. No dilated bowel loops or bowel wall thickening. No free air, free fluid or inflammatory stranding. No hernia, mass or bulky lymphadenopathy. The urinary bladder is without significant finding. No suspicious bony findings. IMPRESSION: No acute intra-abdominal process.
--- NOTE | 2023-10-02 22:37 | EDPHYS ---
Physician Documentation [facility] Name: Morena Bajwa Age: 53 yrs Sex: Female : 1970 Arrival Date: 10/02/2023 Time: 17:55 Bed 11 Private MD: ED Physician Saqib Schofield HPI: 10/01 19:41 This 53 yrs old Female presents to ER via Ambulatory with complaints of kb Urinary Problem - blood, Abdominal Pain, coughing up blood. 19:41 Pt is a 53 year old female who presents for abd pain, urinary frequency, slight kb hematuria, and fever for 3 days. Also reports coughing up green mucus. Denies n/v/d, constipation. 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 - Infectious Disease History:: Denies. - Social history:: Smoking status: Reported history of juuling and/or vaping. ROS: 19:41 Constitutional: As per HPI kb Exam: 19:41 Constitutional: This is a well developed, well nourished patient who is awake, alert, kb and in no acute distress. Head/Face: Normocephalic, atraumatic. ENT: Moist Mucous membranes Cardiovascular: Regular rate Respiratory: Respirations even and unlabored. No increased work of breathing. Talking in full sentences Skin: Warm, dry with normal turgor. Normal color. MS/ Extremity: Pulses equal, no cyanosis. Neurovascular intact. Full, normal range of motion. Neuro: Awake and alert, GCS 15, oriented to person, place, time, and situation. Moves all extremities. Normal gait. 19:41 Abdomen/GI: Inspection: abdomen appears normal, Bowel sounds: normal, Palpation: soft, in all quadrants, mild abdominal tenderness, in the suprapubic area, 19:41 Back: CVA tenderness, that is mild, is noted on the left, Vital Signs: 18:07 BP 122 / 82; Pulse 89; Resp 16; Temp 98.8(O); Pulse Ox 100% on R/A; Weight 58.97 kg; nj1 Height 5 ft. 3 in. ; Pain 8/10; 20:00 BP 108 / 71; Pulse 65; Resp 18; Pulse Ox 98% on R/A; Pain 6/10; pf1 21:00 BP 127 / 79; Pulse 89; Resp 16; Pulse Ox 100% on R/A; Pain 7/10; pf1 22:00 BP 122 / 69; Pulse 65; Resp 16; Temp 98.3; Pulse Ox 100% on R/A; Pain 3/10; pf1 18:07 Body Mass Index 23.03 (58.97 kg, 160.02 cm) nj1 18:07 Pain Scale: Adult nj1 20:00 Pain Scale: Adult pf1 21:00 Pain Scale: Adult pf1 22:00 Pain Scale: Adult pf1 MDM: 18:13 Patient medically screened. kb 19:42 Differential diagnosis: non-specific abd pain, Pyelonephritis, Ureterolithiasis, kb urinary tract infection. Data reviewed: vital signs, nurses notes. 22:37 Counseling: I had a detailed discussion with the patient and/or guardian regarding the kb historical points, exam findings, and any diagnostic results supporting the discharge/admit diagnosis, lab results, radiology results, the need for outpatient follow up, a family practitioner, to return to the emergency department if symptoms worsen or persist or if there are any questions or concerns that arise at home. 10/01 18:10 Order name: CBC with Diff; Complete Time: 20:50 kb 10/01 18:10 Order name: CMP; Complete Time: 20:42 kb 10/01 18:10 Order name: Lipase; Complete Time: 20:42 kb 10/01 18:10 Order name: Urinalysis w/ reflexes; Complete Time: 20:28 kb 10/01 18:10 Order name: CT Abd/Pelvis - IV Contrast Only; Complete Time: 22:24 kb 10/01 18:10 Order name: Chest Single View XRAY; Complete Time: 19:50 kb 10/01 18:10 Order name: IV Saline Lock; Complete Time: 20:27 kb 10/01 18:10 Order name: Labs collected and sent; Complete Time: 20:27 kb Administered Medications: 20:27 Drug: Ketorolac IVP 15 mg IVP once Route: IVP; Site: right wrist; pf1 20:35 Follow up: Response: No adverse reaction; Marked relief of symptoms pf1 Disposition: 10/02 14:11 Co-signature as Attending Physician, Saqib Schofield MD I reviewed the patient's care rn provided by the Advanced Practice Provider and agree with the diagnosis and treatment plan. Disposition Summary: 10/02/23 22:36 Discharge Ordered Notes: Location: Home kb Condition: Stable kb Diagnosis - Cough kb - Abdominal pain, Generalized kb Followup: kb - With: Emergency Department - When: As needed - Reason: Worsening of condition Followup: kb - With: Private Physician - When: 2 - 3 days - Reason: Recheck today's complaints, Continuance of care, Re-evaluation by your physician Discharge Instructions: - Discharge Summary Sheet kb - Abdominal Pain, Adult, [id number] kb - Cough, Adult, [id number] kb Forms: - Medication Reconciliation Form kb - Thank You Letter kb - Patient Portal Instructions kb - Leadership Thank You Letter kb Signatures: Dispatcher [employer] Nikki Castro, COATING MIXER-C COATING MIXER-Ckb Saqib Schofield MD MD rn Finley, Pamala RN RN pf1 Hollie Henson RN RN nj1
--- NOTE | 2023-10-02 22:37 | ER ---
Nurse's Notes [facility] Name: Morena Bajwa Age: 53 yrs Sex: Female : 1970 Arrival Date: 10/02/2023 Time: 17:55 Bed 11 Private MD: Diagnosis: Cough;Abdominal pain, Generalized Presentation: 10/01 18:07 Chief complaint: Patient states: Abdominal pain, blood when i wipe after using ma1 restroom. Coughs every once in a while with green mucus. Urinary frequency. "i feel like i have fever". Coronavirus screen: Vaccine status: Patient reports receiving the 2nd dose of the covid vaccine. Ebola Screen: Patient denies travel to an Ebola-affected area in the 21 days before illness onset. Initial Sepsis Screen: Does the patient meet any 2 criteria? No. Patient's initial sepsis screen is negative. Does the patient have a suspected source of infection? No. Patient's initial sepsis screen is negative. Risk Assessment: Do you want to hurt yourself or someone else? Patient reports no desire to harm self or others. Onset of symptoms was September 30, 2023. 18:07 Method Of Arrival: Ambulatory [facility] 18:07 Acuity: LAUREN 3 [facility] Triage Assessment: 18:10 General: Appears in no apparent distress. comfortable, Behavior is calm, cooperative, nj1 appropriate for age. 18:11 Pain: Complains of pain in abdomen Pain currently is 8 out of 10 on a pain scale. GI: nj1 Reports upper abdominal pain, nausea, Patient currently denies diarrhea, vomiting. 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 - Infectious Disease History:: Denies. - Social history:: Smoking status: Reported history of juuling and/or vaping. Screenin:29 [facility] ED Fall Risk Assessment (Adult) History of falling in the last 3 months, pf1 including since admission No falls in past 3 months (0 pts) Confusion or Disorientation No (0 pts) Intoxicated or Sedated No (0 pts) Impaired Gait No (0 pts) Mobility Assist Device Used No (0 pt) Altered Elimination No (0 pt) Score/Fall Risk Level 0 - 2 = Low Risk Oriented to surroundings, Maintained a safe environment, Educated pt \\T\\ family on fall prevention, incl call for assistance when getting out of bed, Assessed \\T\\ reinforced patient's understanding of fall precautions, Provided non-skid footwear, Hourly rounding (assess needs \\T\\ fall precautionary measures) done, Used ambulatory aids as needed (educated on \\T\\ assisted with), Used gait belt as appropriate. Abuse screen: Denies threats or abuse. Nutritional screening: No deficits noted. Tuberculosis screening: No symptoms or risk factors identified. Assessment: 19:15 General: Appears in no apparent distress. comfortable, well groomed, well developed, pf1 Behavior is calm, cooperative, appropriate for age, quiet. 19:15 Pain: Complains of pain in suprapubic area and abdomen Pain currently is 6 out of 10 on pf1 a pain scale. Neuro: No deficits noted. Level of Consciousness is awake, alert, obeys commands, Oriented to person, place, time, situation. Cardiovascular: No deficits noted. Capillary refill < 3 seconds Patient's skin is warm and dry. Respiratory: No deficits noted. Airway is patent Respiratory effort is even, unlabored, Respiratory pattern is regular, symmetrical, Breath sounds are clear bilaterally. GI: Abdomen is flat, non-distended, Bowel sounds present X 4 quads. Abd is soft Reports lower abdominal pain, nausea. : No deficits noted. No signs and/or symptoms were reported regarding the genitourinary system. EENT: No deficits noted. No signs and/or symptoms were reported regarding the EENT system. Derm: No deficits noted. No signs and/or symptoms reported regarding the dermatologic system. Musculoskeletal: No deficits noted. No signs and/or symptoms reported regarding the musculoskeletal system. 20:15 Reassessment: Patient appears in no apparent distress at this time. Patient and/or pf1 family updated on plan of care and expected duration. Pain level reassessed. Patient is alert, oriented x 3, equal unlabored respirations, skin warm/dry/pink. 21:12 Reassessment: Patient appears in no apparent distress at this time. Patient and/or pf1 family updated on plan of care and expected duration. Pain level reassessed. Patient is alert, oriented x 3, equal unlabored respirations, skin warm/dry/pink. Patient states symptoms have improved. Vital Signs: 18:07 BP 122 / 82; Pulse 89; Resp 16; Temp 98.8(O); Pulse Ox 100% on R/A; Weight 58.97 kg; nj1 Height 5 ft. 3 in. ; Pain 8/10; 20:00 BP 108 / 71; Pulse 65; Resp 18; Pulse Ox 98% on R/A; Pain 6/10; pf1 21:00 BP 127 / 79; Pulse 89; Resp 16; Pulse Ox 100% on R/A; Pain 7/10; pf1 22:00 BP 122 / 69; Pulse 65; Resp 16; Temp 98.3; Pulse Ox 100% on R/A; Pain 3/10; pf1 18:07 Body Mass Index 23.03 (58.97 kg, 160.02 cm) nj1 18:07 Pain Scale: Adult nj1 20:00 Pain Scale: Adult pf1 21:00 Pain Scale: Adult pf1 22:00 Pain Scale: Adult pf1 ED Course: 17:59 Patient arrived in ED. im 18:00 [facility]C [facility] kb 18:00 Saqib Schofield MD is Attending Physician. kb 18:10 Triage completed. nj1 18:10 Arm band placed on left wrist. nj1 19:15 Patient has correct armband on for positive identification. Placed in gown. Bed in low pf1 position. Call light in reach. Side rails up X 1. 19:15 Door closed. Noise minimized. Moved to private room. Warm blanket given. pf1 19:25 Chest Single View XRAY In Process Unspecified. EDMS 20:25 No provider procedures requiring assistance completed. Initial lab(s) drawn, by ks, pf1 sent to lab. Urine collected: clean catch specimen. Inserted saline lock: 22 gauge in right wrist, using aseptic technique. Blood collected. 20:27 CBC with Diff Sent. pf1 20:27 Lipase Sent. pf1 20:27 Urinalysis w/ reflexes Sent. pf1 20:27 CMP Sent. pf1 21:14 CT Abd/Pelvis - IV Contrast Only In Process Unspecified. EDMS 22:47 IV discontinued, intact, bleeding controlled, No redness/swelling at site. Pressure pf1 dressing applied. 22:48 Provided Education on: follow up. pf1 Administered Medications: 20:27 Drug: Ketorolac IVP 15 mg IVP once Route: IVP; Site: right wrist; pf1 20:35 Follow up: Response: No adverse reaction; Marked relief of symptoms pf1 Medication: 22:48 VIS not applicable for this client. pf1 Outcome: 22:36 Discharge ordered by . cristina 22:47 Discharged to home ambulatory, pf1 22:47 Condition: improved 22:47 Discharge instructions given to patient, Instructed on discharge instructions, follow up and referral plans. Demonstrated understanding of instructions, follow-up care, 22:49 Patient left the ED. pf1 Signatures: Dispatcher [employer] EDMS Nikki Oakes, RETAIL CUSTOMER SERVICE SPECIALIST-C RETAIL CUSTOMER SERVICE SPECIALIST-Jessica Wang RN RN pf1 Hollie Henson RN RN nj1 Kate Mccord
[2023-10-03 04:55] VITALS: BP 122/69; TEMP 98.3; O2SAT 100
== END 2023-10-02 22:49 | disposition home or self-care (01) ==
LOC: ER 17:55
DX: R05.9 Cough, unspecified (principal); R10.84 Generalized abdominal pain
CPT/HCPCS: 85025; 81001; 36415; 83690; 80053; 74177; 71045; 96374; 99284; Q9967

== ENCOUNTER 2024-03-26 21:33 | Emergency (ER) | payer OTHER ==
[2024-03-26] MEDS ORDERED: NA CHLORIDE 0.9% 1,000 ML ONE (23:23)
[2024-03-26] MEDS ORDERED: ONDANSETRON 4 MG/2 ML VIAL ONE (23:23)
[2024-03-26] MEDS ORDERED: FAMOTIDINE 20 MG/2 ML VIAL IV ONE (23:23)
[2024-03-27] MEDS ORDERED: MORPHINE 2 MG/ML SYR ONE (00:25)
[2024-03-27 01:05] LABS: Specific Gravity 1.026 (1.005-1.030); Urine Bilirubin NEGATIVE (Negative); Urine Blood Negative (Negative); Urine Clarity Clear (Clear); Urine Color Light-Yellow (Yellow); Urine Glucose NEGATIVE (Negative); Urine Ketones NEGATIVE (Negative); Urine Microscopic Reflex YN NO UMIC; Urine Nitrite NEGATIVE (Negative); Urine Protein NEGATIVE (Negative); Urine Urobilinogen Normal (Normal); Urine pH 5.5 (5.0-7.0)
[2024-03-27 01:09] LABS: Absolute Eosinophils 0.2 K/uL (0-0.5); Absolute Monocytes 0.7 K/uL (0.1-1.3); Absolute Neutrophil 4.9 K/uL (1.8-8.0); Basophils % 0.4 % (0-1.3); Eosinophils % 2.7 % (0-4.4); Hemoglobin 11.1 g/dL (12.0-15.0); Lymphocytes % 14.1 % (15.3-44.8); MCHC 33.6 g/dL (32.0-36.0); MCV 101.3 fL (80-100); MPV 8.1 fL (7.6-11.3); Monocytes % 10.9 % (3.3-12.3); Neutrophils % 71.9 % (41.7-73.7); Platelets 245 thou/uL (152-406); RBC Red Blood Cell Count 3.26 M/uL (3.86-4.86); Red Cell Distribution Width 14.1 % (12.1-15.2)
[2024-03-27 01:36] LABS: Albumin 3.2 g/dL (3.4-5.0); Albumin/Globulin Ratio 0.9 (1.1-1.8); Anion Gap 9.6 mEq/L (5.0-15.0); Bilirubin Total 0.4 mg/dL (0.2-1.0); Globulin 3.6 g/dL (2.3-3.5); Protein, Total 6.8 g/dL (6.4-8.2)
[2024-03-27 01:37] LABS: Potassium 3.6 mEq/L (3.5-5.1)
[2024-03-27 01:42] LABS: Blood Morphology Comment NOT SEEN (NOT SEEN); Platelet Estimate ADEQ; White Blood Cell Scan OK (OK)
--- NOTE | 2024-03-27 02:48 | RAD REPORT ---
EXAM: CT Abdomen and Pelvis With Intravenous Contrast CLINICAL HISTORY: Abd pain. TECHNIQUE: Axial computed tomography images of the abdomen and pelvis with intravenous contrast. Sagittal and coronal reformatted images were created and reviewed. This CT exam was performed using one or more of the following dose reduction techniques: automated exposure control, adjustment of the mA a nd/or kV according to patient size, and/or use of iterative reconstruction technique. COMPARISON: CT Abdomen pelvis with contrast 10/02/2023. FINDINGS: Lung bases: Bilateral subsegmental atelectasis/pleural parenchymal scar. ABDOMEN: Liver: Unremarkable. No mass. Gallbladder and bile ducts: There has been a cholecystectomy. Biliary dilatation progressed from the prior. The common duct measures 13 mm in maximum diameter (previously 9 mm). Pancreas: Mild pancreatic parenchymal atrophy and fatty replacement. No ductal dilation. Spleen: Unremarkable. No splenomegaly. Adrenals: Unremarkable. No mass. Kidneys and ureters: Normal renal cortical enhancement. No calculi. No hydronephrosis. 1.6 cm heter ogeneous lesion at the upper pole of the right kidney, similar to the prior. Stomach and bowel: Prior gastric bypass. Moderate stool. No bowel obstruction. No appreciable mucos al thickening. Colonic diverticula without adjacent inflammatory change. PELVIS: Appendix: The appendix is not definitively visualized. No findings to suggest acute appendicitis. Bladder: Unremarkable. No mass. Reproductive: There has been a hysterectomy. No adnexal cysts or masses are identified. ABDOMEN and PELVIS: Intraperitoneal space: Unremarkable. No free air. No significant fluid collection. Bones/joints: Multilevel spondylosis. No acute fracture. No dislocation. Soft tissues: Unremarkable. Vasculature: Mild atherosclerotic disease. No abdominal aortic aneurysm. Lymph nodes: Unremarkable. No enlarged lymph nodes. IMPRESSION: 1. No acute inflammatory process identified within the abdomen and pelvis. 2. A 1.6 cm heterogeneous lesion at the upper pole of the right kidney, similar to the prior. If no t previously performed, nonemergent protocol MR is suggested for further characterization. 3. Prior cholecystectomy. Progressive biliary dilatation. 4. Other findings as above. Electronically signed by: Pepe Smith MD 03/27/2024 02:45 AM CDT RP Due to temporary technical issues with the PACS/[employer] reporting system, reports are being robert d by the in-house radiologist without review as a courtesy to ensure prompt reporting the interpreting radiologist is fully responsible for the content of the report. Transcribed Date/Time: 03/27/2024 2:48 AM
--- NOTE | 2024-03-27 03:14 | ER ---
Nurse's Notes [facility] Name: Morena Bajwa Age: 53 yrs Sex: Female : 1970 Arrival Date: 03/26/2024 Time: 21:33 Bed 6 Private MD: Diagnosis: Epigastric pain Presentation: 03/26 22:53 Chief complaint: Patient states: Abdominal pain x 2 days. Nausea and vomiting x 2 days. vc1 Temp today of 102.1, feeling weak and tired. Coronavirus screen: Vaccine status: Patient reports receiving the 2nd dose of the covid vaccine. Ebola Screen: Patient negative for fever greater than or equal to 101.5 degrees Fahrenheit, and additional compatible Ebola Virus Disease symptoms. Initial Sepsis Screen: Does the patient meet any 2 criteria? No. Patient's initial sepsis screen is negative. Does the patient have a suspected source of infection? No. Patient's initial sepsis screen is negative. Risk Assessment: Do you want to hurt yourself or someone else? Patient reports no desire to harm self or others. Onset of symptoms was March 24, 2024. 22:53 Method Of Arrival: Ambulatory vc1 22:53 Acuity: LAUREN 3 vc1 Historical: - PMHx: 03/27 00:23 Anxiety; Chronic pain; Depression; GERD; ULCER; lg3 - PSHx: 00:23 Appendectomy; back surgery; bilateral rotator cuff repair; Cholecystectomy; Gastric lg3 Bypass; Knee Replacement-left; Total abdominal hysterectomy; - Immunization history:: Adult Immunizations up to date. - Infectious Disease History:: Denies. - Social history:: Smoking status: Patient denies any tobacco usage or history of. Screenin:23 [facility] ED Fall Risk Assessment (Adult) History of falling in the last 3 months, lg3 including since admission No falls in past 3 months (0 pts) Confusion or Disorientation No (0 pts) Intoxicated or Sedated No (0 pts) Impaired Gait No (0 pts) Mobility Assist Device Used No (0 pt) Altered Elimination No (0 pt) Score/Fall Risk Level 0 - 2 = Low Risk Oriented to surroundings, Maintained a safe environment, Educated pt \T\ family on fall prevention, incl call for assistance when getting out of bed, Assessed \T\ reinforced patient's understanding of fall precautions. Abuse screen: Denies threats or abuse. Denies injuries from another. Nutritional screening: No deficits noted. Tuberculosis screening: No symptoms or risk factors identified. Assessment: 03/26 23:40 General: Appears in no apparent distress. uncomfortable, Behavior is calm, cooperative. lg3 Pain: Complains of pain in epigastric area Pain does not radiate. Pain currently is 8 out of 10 on a pain scale. Neuro: No deficits noted. Mccloud Agitation-Sedation Scale (RASS): 0 - Alert and Calm Level of Consciousness is awake, alert, obeys commands, Oriented to person, place, time, situation. Cardiovascular: No deficits noted. Denies chest pain, shortness of breath, Capillary refill < 3 seconds Clubbing of nail beds is absent JVD is absent Patient's skin is warm and dry. Respiratory: No deficits noted. Airway is patent Respiratory effort is even, unlabored, Respiratory pattern is regular, symmetrical. GI: Abdomen is round non-distended, Bowel sounds present X 4 quads. Abd is soft X 4 quads Abdomen is tender to palpation in right upper quadrant and left upper quadrant. : No deficits noted. No signs and/or symptoms were reported regarding the genitourinary system. EENT: No deficits noted. No signs and/or symptoms were reported regarding the EENT system. Derm: No deficits noted. No signs and/or symptoms reported regarding the dermatologic system. Skin is intact, is healthy with good turgor, Skin is dry, Skin is normal, Skin temperature is warm. Musculoskeletal: No deficits noted. No signs and/or symptoms reported regarding the musculoskeletal system. Circulation, motion, and sensation intact. Range of motion: intact in all extremities. 03/27 00:54 Reassessment: Patient and/or family updated on plan of care and expected duration. Pain br2 level reassessed. Patient is alert, oriented x 3, equal unlabored respirations, skin warm/dry/pink. Patient states feeling better. Patient states symptoms have improved. Vital Signs: 03/26 22:53 BP 124 / 87; Pulse 58; Resp 16; Temp 98.3; Pulse Ox 99% ; Weight 58.97 kg; Height 5 ft. vc1 3 in. ; Pain 7/10; 03/27 00:52 BP 115 / 73; Pulse 58; Resp 18 S; Pulse Ox 97% on R/A; Pain 6/10; br2 02:38 BP 123 / 78; Pulse 61; Resp 18 S; Pulse Ox 98% on R/A; br2 03:15 BP 120 / 70; Pulse 64; Resp 18 S; Pulse Ox 98% on R/A; Pain 2/10; br2 03/26 22:53 Body Mass Index 23.03 (58.97 kg, 160.02 cm) vc1 03/26 22:53 Pain Scale: Adult vc1 03/27 00:52 Pain Scale: Adult br2 03:15 Pain Scale: Adult br2 ED Course: 03/26 21:40 Patient arrived in ED. gm2 21:42 Nik[facility] Oakes [facility]NP-C [facility]. kb 21:42 Blade Perdomo MD is Attending Physician. kb 22:55 Triage completed. vc1 23:39 Nasima Garcia, RN is Primary Nurse. lg3 23:40 Missed attempt(s): 22 gauge in right forearm. Bleeding controlled, band aid applied, lg3 catheter tip intact. 23:40 Patient PLAN OF CARE. br2 03/27 00:10 Missed attempt(s): 22 gauge in right hand. Bleeding controlled, band aid applied, lg3 catheter tip intact. 00:21 Inserted saline lock: 22 gauge in right forearm, using aseptic technique. Flushed with vc1 10 mL NS. 00:23 Patient has correct armband on for positive identification. Placed in gown. Bed in low lg3 position. Call light in reach. Side rails up X 1. Client placed on continuous cardiac and pulse oximetry monitoring. NIBP monitoring applied. Door closed. Noise minimized. Warm blanket given. Pillow given. 00:49 CBC with Diff Sent. vc1 00:49 CMP Sent. vc1 00:49 Lipase Sent. vc1 00:49 Urinalysis w/ reflexes Sent. vc1 02:07 CT Abd/Pelvis - IV Contrast Only In Process Unspecified. EDMS 03:13 Jose Alfredo David MD is Referral Physician. rt 03:25 IV discontinued, intact, bleeding controlled, No redness/swelling at site. Pressure br2 dressing applied. 03:26 Provided Education on: DISCHARGE INSTRUCTIONS. br2 03:35 No provider procedures requiring assistance completed. br2 Administered Medications: 00:22 Drug: Famotidine IVP 20 mg IVP once; dilute with 10 mL 0.9% NaCl; give over 2 minutes vc1 Route: IVP; Site: right forearm; 00:50 Follow up: Response: No adverse reaction br2 00:22 Drug: Ondansetron IVP 4 mg IVP once; over 2 minutes Route: IVP; Site: right forearm; vc1 00:45 Follow up: Response: No adverse reaction br2 00:49 Drug: NS 0.9% IV 1000 ml IV at 1 bolus Per protocol; 1000 mL bolus Route: IV; Rate: 1 vc1 bolus; Site: right forearm; 01:30 Follow up: Response: No adverse reaction; IV Status: Completed infusion; IV Intake: br2 1000ml 03:27 Drug: Ondansetron IVP 4 mg IVP once; over 2 minutes Route: IVP; Site: right forearm; br2 03:27 Follow up: Response: Medication administered at discharge. br2 03:27 Drug: GI Cocktail without - (Maalox PO 30 ml, Lidocaine Mucous Membrane 2 % 15 br2 ml) PO once Route: PO; 03:27 Follow up: Response: Medication administered at discharge. br2 Medication: 03:26 VIS not applicable for this client. br2 Intake: 01:30 IV: 1000ml; Total: 1000ml. br2 Outcome: 03:13 Discharge ordered by . rt 03:27 Patient left the ED. br2 03:27 Discharged to home ambulatory, 03:27 Condition: good 03:35 Discharge instructions given to patient, br2 Signatures: Dispatcher [employer] EDDC Nikki Oakes, PEYTON-Jerry MARSHP-Nasima Arteaga RN RN lg3 Sindy Powell RN RN vc1 Blade Perdomo MD MD rt Judy Pena gm2 Shey Duncan RN RN br2 Corrections: (The following items were deleted from the chart) 03/26 23:40 23:40 Missed attempt(s): 22 gauge in right forearm. lg3 lg3 03/27 03:59 03:35 Discharged to home ambulatory, br2 br2 03:59 03:35 Condition: good br2 br2 03:59 03:58 Patient left the ED. br2 br2
--- NOTE | 2024-03-27 03:14 | EDPHYS ---
Physician Documentation [facility] Name: Morena Bajwa Age: 53 yrs Sex: Female : 1970 Arrival Date: 03/26/2024 Time: 21:33 Bed 6 Private MD: ED Physician Blade Perdomo HPI: 03/26 22:40 This 53 yrs old Female presents to ER via Unassigned with complaints of kb Abdominal Pain. 22:40 Pt is a 53 year old female who presents for upper abd pain that started 3 days ago with kb associated vomiting and fever. Denies diarrhea, alleviating or aggravating factors. . Historical: - PMHx: 03/27 00:23 Anxiety; Chronic pain; Depression; GERD; ULCER; lg3 - PSHx: 00:23 Appendectomy; back surgery; bilateral rotator cuff repair; Cholecystectomy; Gastric lg3 Bypass; Knee Replacement-left; Total abdominal hysterectomy; - Immunization history:: Adult Immunizations up to date. - Infectious Disease History:: Denies. - Social history:: Smoking status: Patient denies any tobacco usage or history of. ROS: 03/26 22:40 Constitutional: As per HPI kb Exam: 22:40 Constitutional: This is a well developed, well nourished patient who is awake, alert, kb and in no acute distress. Head/Face: Normocephalic, atraumatic. ENT: Moist Mucous membranes Cardiovascular: Regular rate Respiratory: Respirations even and unlabored. No increased work of breathing. Talking in full sentences Back: No spinal tenderness. No costovertebral tenderness. Full range of motion. Skin: Warm, dry with normal turgor. Normal color. MS/ Extremity: Pulses equal, no cyanosis. Neurovascular intact. Full, normal range of motion. Neuro: Awake and alert, GCS 15, oriented to person, place, time, and situation. Moves all extremities. Normal gait. 22:40 Abdomen/GI: Inspection: abdomen appears normal, Bowel sounds: normal, Palpation: soft, in all quadrants, mild abdominal tenderness, in the epigastric area, Vital Signs: 22:53 BP 124 / 87; Pulse 58; Resp 16; Temp 98.3; Pulse Ox 99% ; Weight 58.97 kg; Height 5 ft. vc1 3 in. ; Pain 7/10; 03/27 00:52 BP 115 / 73; Pulse 58; Resp 18 S; Pulse Ox 97% on R/A; Pain 6/10; br2 02:38 BP 123 / 78; Pulse 61; Resp 18 S; Pulse Ox 98% on R/A; br2 03:15 BP 120 / 70; Pulse 64; Resp 18 S; Pulse Ox 98% on R/A; Pain 2/10; br2 03/26 22:53 Body Mass Index 23.03 (58.97 kg, 160.02 cm) vc1 03/26 22:53 Pain Scale: Adult vc1 03/27 00:52 Pain Scale: Adult br2 03:15 Pain Scale: Adult br2 MDM: 03/26 21:42 Patient medically screened. kb 03/27 00:31 Data reviewed: vital signs, nurses notes. Transition of care: After a detail discussion kb of the patient's case, care is transferred to Blade Perdomo MD. 03/26 22:29 Order name: CBC with Diff; Complete Time: 01:43 kb 03/26 22:29 Order name: CMP; Complete Time: 01:43 kb 03/26 22:29 Order name: Lipase; Complete Time: 01:43 kb 03/26 22:29 Order name: Urinalysis w/ reflexes; Complete Time: 01:43 kb 03/27 01:14 Order name: CBC Smear Scan; Complete Time: 01:43 EDMS 03/26 22:29 Order name: CT Abd/Pelvis - IV Contrast Only kb 03/26 22:29 Order name: IV Saline Lock; Complete Time: 00:22 kb 03/26 22:29 Order name: Labs collected and sent; Complete Time: 00:49 kb Administered Medications: 00:22 Drug: Famotidine IVP 20 mg IVP once; dilute with 10 mL 0.9% NaCl; give over 2 minutes vc1 Route: IVP; Site: right forearm; 00:50 Follow up: Response: No adverse reaction br2 00:22 Drug: Ondansetron IVP 4 mg IVP once; over 2 minutes Route: IVP; Site: right forearm; vc1 00:45 Follow up: Response: No adverse reaction br2 00:49 Drug: NS 0.9% IV 1000 ml IV at 1 bolus Per protocol; 1000 mL bolus Route: IV; Rate: 1 vc1 bolus; Site: right forearm; 01:30 Follow up: Response: No adverse reaction; IV Status: Completed infusion; IV Intake: br2 1000ml 03:27 Drug: Ondansetron IVP 4 mg IVP once; over 2 minutes Route: IVP; Site: right forearm; br2 03:27 Follow up: Response: Medication administered at discharge. br2 03:27 Drug: GI Cocktail without - (Maalox PO 30 ml, Lidocaine Mucous Membrane 2 % 15 br2 ml) PO once Route: PO; 03:27 Follow up: Response: Medication administered at discharge. br2 Disposition: 03:46 Co-signature as Attending Physician, Blade Perdomo MD I reviewed the patient's care rt provided by Advanced Practice Provider \T\ agree w/ the diagnosis \T\ care plan. I personally saw the pt \T\ performed a substantive portion of the visit, incldng all aspects of the (History/Exam/Medical Decision Making). Symptoms improved with treatment in the ED, patient informed of findings on CT scan, instructed to follow-up as an outpatient. Return precautions discussed.. Disposition Summary: 03/27/24 03:13 Discharge Ordered Notes: Location: Home rt Problem: new rt Symptoms: have improved rt Condition: Stable rt Diagnosis - Epigastric pain rt Followup: rt - With: Jose Alfredo David MD - When: 2 - 3 days - Reason: Discharge Instructions: - Discharge Summary Sheet rt - Abdominal Pain, Adult rt Forms: - Medication Reconciliation Form rt - Antibiotic Education rt - Prescription Opioid Use rt - Patient Portal Instructions rt - Leadership Thank You Letter rt Prescriptions: - ondansetron 4 mg Oral Tablet,disintegrating - take 1 tablet ORAL route every 6 hours as needed for nausea; 15 tablet; rt Refills: 0, Product Selection Permitted - Protonix 40 mg Oral Tablet - take 1 tablet ORAL route once daily; 30 tablet; Refills: 0, Product Selection rt Permitted Signatures: Dispatcher [employer] Nikki Castro FNP-C FNP-Nasima Arteaga RN RN lg3 Sindy Powell RN RN vc1 Blade Perdomo MD MD rt Shey Duncan RN RN br2 Corrections: (The following items were deleted from the chart) 03/26 22:30 22:30 CBC+H.LAB.BRZ ordered. EDMS EDMS 22:30 22:30 COMPREHENSIVE METABOLIC PANEL+C.LAB.BRZ ordered. EDMS EDMS 22: 22:30 LIPASE+C.LAB.BRZ ordered. EDMS EDMS : 22:30 Urinalysis+U.LAB.BRZ ordered. EDMS EDMS 22: 22:30 Abdomen Pelvis W Con+CT.RAD.BRZ ordered. EDMS EDMS
[2024-03-27] MEDS ORDERED: ONDANSETRON 4 MG/2 ML VIAL ONE (03:20)
[2024-03-27] MEDS ORDERED: MAGNES/ALUMIN/SIMET 30ML UCUP ONE (03:20)
[2024-03-27] MEDS ORDERED: LIDOCAINE VISCOUS 2% 10ML ORAL SOLN ONE (03:21)
[2024-03-27 04:09] VITALS: TEMP 98.3
[2024-03-27 04:13] VITALS: O2SAT 98
[2024-03-27 04:15] VITALS: BP 120/70
== END 2024-03-27 03:58 | disposition home or self-care (01) ==
LOC: ER 21:33
DX: R10.13 Epigastric pain (principal)
CPT/HCPCS: 85025; 36415; 81003; 83690; 80053; 74177; Q9967; J2270; J2405 ×2; J7030

== ENCOUNTER 2024-10-08 15:00 | Emergency (ER) | payer MEDICAID ==
[2024-10-08] MEDS ORDERED: ONDANSETRON 4 MG/2 ML VIAL ONE (15:43)
[2024-10-08] MEDS ORDERED: NA CHLORIDE 0.9% 1,000 ML ONE (15:44)
[2024-10-08] MEDS ORDERED: MORPHINE 4 MG/ML SYR ONE (15:44)
[2024-10-08 16:04] LABS: Absolute Eosinophils 0.3 K/uL (0-0.5); Absolute Lymphocytes (CBC) 0.5 K/uL (0.7-4.9); Absolute Monocytes 0.6 K/uL (0.1-1.3); Absolute Neutrophil 8.5 K/uL (1.8-8.0); Basophils % 0.3 % (0-1.3); Eosinophils % 2.6 % (0-4.4); Hematocrit 29.1 % (36.0-45.0); Hemoglobin 9.7 g/dL (12.0-15.0); MCH 32.9 pg (27.0-35.0); MCHC 33.4 g/dL (32.0-36.0); MCV 98.6 fL (80-100); MPV 7.1 fL (7.6-11.3); Monocytes % 6.5 % (3.3-12.3); Neutrophils % 85.6 % (41.7-73.7); Platelets 566 thou/uL (152-406); RBC Red Blood Cell Count 2.95 M/uL (3.86-4.86); Red Cell Distribution Width 15.5 % (12.1-15.2)
--- NOTE | 2024-10-08 16:10 | RAD REPORT ---
EXAMINATION: CT ABDOMEN AND PELVIS WITHOUT CONTRAST CLINICAL INDICATION: ABD PAIN TECHNIQUE: CT abdomen and pelvis was performed, without IV contrast, as per department protocol. Axia l, sagittal and coronal reconstructions were obtained. One or more of the following dose reduction techniques were used: Automated exposure control, adjustment of the mA and kV according to the patien t size, and iterative reconstruction. Unless otherwise specified, incidental findings do not require dedicated imaging follow-up. COMPARISON: No prior exam. FINDINGS: The lack of intravenous contrast limits the sensitivity of this exam for evaluation of solid visceral organs, vascular structures, and retroperitoneum. LOWER CHEST: The visualized lung bases are clear. Postsurgical changes are present about the stomach. LIVER:Normal in size and contour. No focal lesion. Cholecystectomy clips. SPLEEN: Normal size. No focal lesion. PANCREAS: No mass, ductal dilation, or anne-pancreatic fluid. ADRENALS: Normal; no mass. KIDNEYS AND URETERS: There is an increased density are seen lateral aspect left kidney. Air is presen t in the left flank soft tissues. Crescentic subcutaneous fluid collection is present left lower quadrant measuring 7.5 x 2.3 cm. Along the left flank inferiorly there is fluid collection present in tra-abdominally measuring 5.6 x 3.3 cm, uncertain etiology. URINARY BLADDER: Normal contour. GASTROINTESTINAL TRACT: No evidence of bowel obstruction, significant free fluid, free air or abscess . APPENDIX: Appendix not visualized, but no inflammatory changes in region of appendix. LYMPH NODES: No lymphadenopathy. MUSCULOSKELETAL: 6 mm anterolisthesis L5 on S1. IMPRESSION: Abnormal areas of increased density lateral aspect of the left kidney noted of unclear etiology may b e related to intervention or trauma in this region. Correlation with history of left renal intervention. Left flank fluid collections are seen both in the subcutaneous fat as well as along the left flank in tra-abdominal cavity may also be related to previous intervention or trauma.
[2024-10-08 16:20] LABS: Albumin 3.3 g/dL (3.4-5.0); Albumin/Globulin Ratio 0.8 (1.1-1.8); Anion Gap 6.9 mEq/L (5.0-15.0); Bilirubin Total 0.2 mg/dL (0.2-1.0); Globulin 4.1 g/dL (2.3-3.5); Potassium 3.9 mEq/L (3.5-5.1); Protein, Total 7.4 g/dL (6.4-8.2)
[2024-10-08] MEDS ORDERED: FAMOTIDINE 20 MG/2 ML VIAL IV ONE (16:30)
--- NOTE | 2024-10-08 17:30 | ER ---
Nurse's Notes [facility] Name: Morena Bajwa Age: 54 yrs Sex: Female : 1970 Arrival Date: 10/08/2024 Time: 15:00 Bed 7 Private MD: Diagnosis: Abdominal pain, Generalized;Anemia, unspecified Presentation: 10/08 15:02 Chief complaint: EMS states: ABDOMINAL PAIN, CT Y/D AT [facility]. Coronavirus bp screen: At this time, the client does not indicate any symptoms associated with coronavirus-19. Ebola Screen: No symptoms or risks identified at this time. Initial Sepsis Screen: Does the patient meet any 2 criteria? No. Patient's initial sepsis screen is negative. Does the patient have a suspected source of infection? No. Patient's initial sepsis screen is negative. Risk Assessment: Do you want to hurt yourself or someone else? Patient reports no desire to harm self or others. Onset of symptoms is unknown. 15:02 Method Of Arrival: EMS: [facility] bp 15:02 Acuity: LAUREN 3 bp Triage Assessment: 15:03 General: Appears in no apparent distress. uncomfortable, Behavior is cooperative, bp appropriate for age, anxious. Pain: Complains of pain in abdomen. EENT: No deficits noted. Neuro: No deficits noted. Cardiovascular: No deficits noted. Respiratory: No deficits noted. GI: Reports lower abdominal pain. : No signs and/or symptoms were reported regarding the genitourinary system. Derm: No deficits noted. Musculoskeletal: No deficits noted. Historical: - Allergies: 15:03 No Known Drug Allergies; bp - PMHx: 15:03 Anxiety; Chronic pain; Depression; GERD; ULCER; bp - PSHx: 15:03 Appendectomy; back surgery; bilateral rotator cuff repair; Cholecystectomy; Gastric bp Bypass; Knee Replacement-left; Total abdominal hysterectomy; - Immunization history:: Adult Immunizations up to date. - Infectious Disease History:: Denies. - Social history:: Smoking status: Patient denies any tobacco usage or history of. Screenin:59 [facility] ED Fall Risk Assessment (Adult) History of falling in the last 3 months, bp including since admission No falls in past 3 months (0 pts) Confusion or Disorientation No (0 pts) Intoxicated or Sedated No (0 pts) Impaired Gait No (0 pts) Mobility Assist Device Used No (0 pt) Altered Elimination No (0 pt) Score/Fall Risk Level 0 - 2 = Low Risk Oriented to surroundings. Abuse screen: Denies threats or abuse. Denies injuries from another. Nutritional screening: No deficits noted. Tuberculosis screening: No symptoms or risk factors identified. Assessment: 16:00 Reassessment: No changes from previously documented assessment. Patient is alert, bp oriented x 3, equal unlabored respirations, skin warm/dry/pink. 17:48 Reassessment: Patient appears in no apparent distress at this time. Patient is alert, bp oriented x 3, equal unlabored respirations, skin warm/dry/pink. Vital Signs: 15:02 BP 110 / 73; Pulse 77; Resp 16; Temp 98; Pulse Ox 100% ; bp 15:04 BP 108 / 77; Pulse 66; Resp 20; Temp 97.1; Pulse Ox 99% on R/A; tm3 16:09 BP 101 / 64; Pulse 63; Resp 15; Pulse Ox 100% ; bp 17:48 BP 103 / 85; Pulse 64; Resp 15; Pulse Ox 100% ; bp ED Course: 15:01 Patient arrived in ED. bp 15:03 Triage completed. bp 15:03 Kennteh Zuniga MD is Attending Physician. rosalinda 15:03 Arm band placed on. bp 15:04 Attending Physician role handed off by Kenneth Zuniga MD ms3 15:04 Lee Carrera DO is Attending Physician. ms3 15:35 CT Abd/Pelvis - Without Contrast In Process Unspecified. EDMS 15:42 Marco Antonio Ogden, CAR is Primary Nurse. bp 15:59 Patient has correct armband on for positive identification. bp 15:59 Initial lab(s) drawn, by [facility], sent to lab. Inserted saline lock: 24 gauge in right upper bp arm, using aseptic technique. Blood collected. Flushed with 10 mL NS. 17:48 No provider procedures requiring assistance completed. IV discontinued, intact, bp bleeding controlled, No redness/swelling at site. Pressure dressing applied. Administered Medications: 15:58 Drug: NS 0.9% IV 1000 ml IV at 1 bolus Per protocol; to be given as a bolus over 60 bp minutes Route: IV; Rate: 1 bolus; Site: right upper arm; 17:50 Follow up: IV Status: Completed infusion bp 15:59 Drug: Famotidine IVP 20 mg IVP once; dilute with 10 mL 0.9% NaCl; give over 2 minutes bp Route: IVP; Site: right upper arm; 17:50 Follow up: Response: No adverse reaction bp 15:59 Drug: morphine IVP or IV 4 mg IVP once over 4 mins Route: IVP; Infused Over: 4 mins; bp Site: right upper arm; 17:50 Follow up: Response: No adverse reaction bp Medication: 17:48 VIS not applicable for this client. bp Outcome: 17:29 Discharge ordered by ms3 17:48 Discharged to home ambulatory, bp 17:48 Condition: stable 17:48 Discharge instructions given to patient, Instructed on discharge instructions, follow up and referral plans. Demonstrated understanding of instructions, follow-up care, 17:50 Patient left the ED. bp Signatures: Dispatcher [employer] EDMS Perico Sol tm3 Kenneth Zuniga MD MD cha Peltier, Brian, RN RN Lee Ulloa DO DO ms3
--- NOTE | 2024-10-08 17:30 | EDPHYS ---
Physician Documentation [facility] Name: Morena Bajwa Age: 54 yrs Sex: Female : 1970 Arrival Date: 10/08/2024 Time: 15:00 Bed 7 Private MD: ED Physician Lee Carrera HPI: 10/08 15:08 This 54 yrs old Female presents to ER via EMS with complaints of Abdominal ms3 Pain. 15:08 54-year-old female with past medical history of anxiety, chronic pain, depression, ms3 GERD, presents to the emergency department for generalized abdominal pain for the last few days. Patient states her pain is 10/10. She denies any alleviating or inciting factors. Patient notes she had a nephrectomy performed on September 25 at [facility]. Patient endorses shortness of breath. Patient attempted to take hydrocodone prior to arrival however vomited the medication.. Historical: - Allergies: 15:03 No Known Drug Allergies; bp - PMHx: 15:03 Anxiety; Chronic pain; Depression; GERD; ULCER; bp - PSHx: 15:03 Appendectomy; back surgery; bilateral rotator cuff repair; Cholecystectomy; Gastric bp Bypass; Knee Replacement-left; Total abdominal hysterectomy; - Immunization history:: Adult Immunizations up to date. - Infectious Disease History:: Denies. - Social history:: Smoking status: Patient denies any tobacco usage or history of. ROS: 15:08 Constitutional: Negative for fever, and chills. Cardiovascular: Negative for chest ms3 pain, and palpitations. Respiratory: Negative for shortness of breath, cough, wheezing, and pleuritic chest pain, 15:08 Abdomen/GI: Positive for abdominal pain, nausea and vomiting, Exam: 15:08 Constitutional: This is a well developed, well nourished patient who is awake, alert, ms3 and in no acute distress. Cardiovascular: Regular rate and rhythm with a normal S1 and S2. No gallops, murmurs, or rubs. Normal PMI, no JVD. No pulse deficits. Respiratory: Lungs have equal breath sounds bilaterally, clear to auscultation and percussion. No rales, rhonchi or wheezes noted. No increased work of breathing, no retractions or nasal flaring. 15:08 Abdomen/GI: Inspection: abdomen appears normal, Bowel sounds: normal, in all quadrants, Palpation: moderate abdominal tenderness, in the right lower quadrant and left lower quadrant, Well-healing incisions left lower quadrant, Vital Signs: 15:02 BP 110 / 73; Pulse 77; Resp 16; Temp 98; Pulse Ox 100% ; bp 15:04 BP 108 / 77; Pulse 66; Resp 20; Temp 97.1; Pulse Ox 99% on R/A; tm3 16:09 BP 101 / 64; Pulse 63; Resp 15; Pulse Ox 100% ; bp 17:48 BP 103 / 85; Pulse 64; Resp 15; Pulse Ox 100% ; bp MDM: 15:03 Medical Screening Exam initiated rosalinda 15:08 Differential diagnosis: non-specific abd pain, Bowel obstruction versus diverticulitis ms3 versus UTI. 18:04 Data reviewed: vital signs, nurses notes, lab test result(s), radiologic studies, and ms3 as a result, I will discharge patient. I considered the following discharge prescriptions or medication management in the emergency department Medications were administered in the Emergency Department. See MAR. Counseling: I had a detailed discussion with the patient and/or guardian regarding the historical points, exam findings, and any diagnostic results supporting the discharge/admit diagnosis, lab results, radiology results, the need for outpatient follow up, to return to the emergency department if symptoms worsen or persist or if there are any questions or concerns that arise at home. Special discussion: Based on the patient's history, exam, and Dx evaluation, there is no indication for emergent intervention or inpatient Tx. It is understood by the patient/guardian that if the Sx's persist or worsen they need to return immediately for re-evaluation. ED course: Discussed labs, imaging with the patient. Patient to follow-up with primary care physician in 2 to 3 days. Patient understands and agrees with plan. All questions were answered. Return precautions discussed include worsening symptoms, or any other concerns. On reevaluation patient symptoms improved, patient is alert and orient x 4, no apparent distress, nontoxic-appearing, speaking full sentences.. 10/08 15:04 Order name: CBC with Diff ms3 10/08 15:04 Order name: CMP; Complete Time: 16:24 ms3 10/08 15:04 Order name: Lipase; Complete Time: 16:24 ms3 10/08 15:04 Order name: CT Abd/Pelvis - Without Contrast; Complete Time: 16:24 ms3 10/08 15:04 Order name: IV Saline Lock; Complete Time: 15:59 ms3 10/08 15:04 Order name: Labs collected and sent; Complete Time: 15:59 ms3 Administered Medications: 15:58 Drug: NS 0.9% IV 1000 ml IV at 1 bolus Per protocol; to be given as a bolus over 60 bp minutes Route: IV; Rate: 1 bolus; Site: right upper arm; 17:50 Follow up: IV Status: Completed infusion bp 15:59 Drug: Famotidine IVP 20 mg IVP once; dilute with 10 mL 0.9% NaCl; give over 2 minutes bp Route: IVP; Site: right upper arm; 17:50 Follow up: Response: No adverse reaction bp 15:59 Drug: morphine IVP or IV 4 mg IVP once over 4 mins Route: IVP; Infused Over: 4 mins; bp Site: right upper arm; 17:50 Follow up: Response: No adverse reaction bp Disposition Summary: 10/08/24 17:29 Discharge Ordered Notes: Location: Home ms3 Condition: Stable ms3 Diagnosis - Abdominal pain, Generalized ms3 - Anemia, unspecified ms3 Followup: ms3 - With: Private Physician - When: 2 - 3 days - Reason: Recheck today's complaints Discharge Instructions: - Discharge Summary Sheet ms3 - Abdominal Pain, Adult ms3 - Anemia ms3 Forms: - Medication Reconciliation Form ms3 - Antibiotic Education ms3 - Prescription Opioid Use ms3 - Patient Portal Instructions ms3 - Leadership Thank You Letter ms3 Signatures: Dispatcher [employer] Kenneth Olea MD MD cha Peltier, Brian, RN RN Lee Ulloa DO DO ms3 Corrections: (The following items were deleted from the chart) 15:11 15:11 Urinalysis+U.LAB.BRZ ordered. MARYNC NINA
[2024-10-08 18:25] VITALS: TEMP 97.1
[2024-10-08 18:26] VITALS: O2SAT 100
[2024-10-08 18:27] VITALS: BP 103/85
[2024-10-08 20:26] LABS: White Blood Cell Scan OK (OK)
[2024-10-08 20:27] LABS: Anisocytosis 1+; Blood Morphology Comment NOTED (NOT SEEN); Platelet Estimate INCR; Poikilocytosis 2+
== END 2024-10-08 17:50 | disposition home or self-care (01) ==
LOC: ER 15:00
DX: R10.84 Generalized abdominal pain (principal); D64.9 Anemia, unspecified; Z90.5 Acquired absence of kidney
CPT/HCPCS: 96361; 85025; 36415; 83690; 80053; 74176; 96375; 96374; 99284; Q9967; J2405; J7030